=== PATIENT | male | born 1950 | race Caucasian/White ===

== ENCOUNTER 2016-10-02 15:21 | Inpatient (IN) | payer OTHER ==
[~2016-10-02 15:21] MED LIST: ADENOSINE 3 MG/ML 4 ML VIAL IVP ONE; SODIUM CHLORIDE 0.9% 100 ML BAG ONE
[2016-10-02] MEDS ORDERED: SODIUM CHLORIDE 0.9% 1,000 ML IV STA ×2 (15:45→17:01)
--- NOTE | 2016-10-02 15:47 | ED ---
General Adult HPI <RoqueMarco A - Last Filed: 10/02/16 17:08> - General Source: patient, RN notes reviewed Mode of arrival: wheelchair Limitations: no limitations <Alberto Hernandez - Last Filed: 10/02/16 17:22> - General Chief complaint: Chest Pain Stated complaint: Chest Pain Time Seen by Provider: 10/02/16 15:39 - History of Present Illness Initial comments: Patient 66-year-old male who presents emergency room today with a chief complaint of chest pain. He does admit that it started approximately 3.5 hours ago. He states that he woke up around noon feeling some numbness sensation to the back of his arms bilaterally. He states he then began having some pressure- like feeling over his chest. He does admit to some back pain between shoulders as well. Patient states never had some symptoms in the past. Patient does admit to mild cough congestion last few days. Does admit to some sputum production. Patient denies any other complaints. Patient denies any recent fever, chills, shortness of breath, abdominal pain, nausea or vomiting, numbness or tingling, dysuria or hematuria, constipation or diarrhea, headaches or visual changes, or any other complaints. (Alberto Hernandez) - Related Data Home Medications Medication Instructions Recorded Confirmed Atenolol/Chlorthalidone 1 tab PO DAILY@199904/22/14 06/03/14 [Atenolol-Chlorthalidone 50-25] Doxazosin Mesylate 2 mg PO HS 04/22/14 06/03/14 HYDROcodone/APAP 5-325MG [[place] 1 tab PO BID PRN 04/22/14 06/03/14 5-325] LORazepam [Ativan] 2 mg PO TID PRN 04/22/14 06/03/14 Butalb/Asprin/Caff 50-325-40Mg 1 cap PO Q6H PRN 10/02/16 10/02/16 [Fiorinal 50-325-40 MG] Butalb/Asprin/Caff 50-325-40Mg 2 cap PO Q6H PRN 10/02/16 10/02/16 [Fiorinal 50-325-40 MG] Allergies Allergy/AdvReac Type Severity Reaction Status Date / Time Sulfa (Sulfonamide AdvReac Seizure Verified 10/02/16 17:17 Antibiotics) Review of Systems ROS Other: All systems not noted in ROS Statement are negative. <Marco A Nevarez - Last Filed: 10/02/16 17:08> ROS Other: All systems not noted in ROS Statement are negative. <Alberto Hernandez - Last Filed: 10/02/16 17:22> ROS Statement: Those systems with pertinent positive or pertinent negative responses have been documented in the HPI. Past Medical History Past Medical History: Chest Pain / Angina, COPD, Hypertension, Prostate Disorder , Seizure Disorder Additional Past Medical History / Comment(s): arrythmia, seizures as child, migraines,hernia, "skin boils"-has one that is oozing on right inner thigh- using antibiotic cream, cysts on both kidneys, past hx. colon polyps History of Any Multi-Drug Resistant Organisms: None Reported Past Surgical History: Cholecystectomy, Tonsillectomy Past Anesthesia/Blood Transfusion Reactions: No Reported Reaction Past Psychological History: Anxiety, Depression Smoking Status: Current every day smoker Past Alcohol Use History: None Reported Past Drug Use History: None Reported - Past Family History Father Family Medical History: Cancer Mother Family Medical History: Cancer <Alberto Hernandez - Last Filed: 10/02/16 17:22> General Exam <Marco A Nevarez - Last Filed: 10/02/16 17:08> Limitations: no limitations <Alberto Hernandez - Last Filed: 10/02/16 17:22> - General Exam Comments Initial Comments: General: The patient is awake and alert, in no distress, and does not appear acutely ill. Eye: Pupils are equal, round and reactive to light, extra-ocular movements are intact. No nystagmus. There is normal conjunctiva bilaterally. No signs of icterus. Ears, nose, mouth and throat: There are moist mucous membranes and no oral lesions. Neck: The neck is supple, there is no tenderness or JVD. Cardiovascular: There is a regular rate and rhythm. No murmur, rub or gallop is appreciated. Respiratory: Lungs are clear to auscultation, respirations are non-labored, breath sounds are equal. No wheezes, stridor, rales, or rhonchi. Gastrointestinal: Soft, non-distended, non-tender abdomen without masses or organomegaly noted. There is no rebound or guarding present. No CVA tenderness. Bowel sounds are unremarkable. Musculoskeletal: Normal ROM, no tenderness. Strength 5/5. Sensation intact. Pulses equal bilaterally 2+. Neurological: A&O x 3. CN II-XII intact, There are no obvious motor or sensory deficits. Coordination appears grossly intact. Speech is normal. Skin: Skin is warm and dry and no rashes or lesions are noted. Psychiatric: Cooperative, appropriate mood & affect, normal judgment. (Alberto Hernandez) Medical Decision Making - Lab Data Result diagrams: 10/02/16 15:45 10/02/16 15:45 <Marco A Nevarez - Last Filed: 10/02/16 17:08> - Lab Data Result diagrams: 10/02/16 15:45 10/02/16 15:45 <Alberto Hernandez - Last Filed: 10/02/16 17:22> - Medical Decision Making Medical decision-making. The patient reports that he didn't get a dental 7 AM and awakened after noon today symmetric and up he had discomfort to his chest describes as a pressure. Some tingling discomfort to the back of his left arm his significant other said that he looked diaphoretic. This lasted for several hours. He came to the emergency room. EKG did not show any acute ST elevation. The discomfort subsided on its own. Past history significant for high blood pressure. The patient is trying to quit smoking. Because of his symptoms going through to the back/ scapular regions, he did have CAT scan with IV contrast which ruled out PE and aortic dissection. Labs show CK of 73 MB fraction 0.8 troponin 0.38. The patient is chest pain-free at this time. He is receiving at this time after a negative CT of his aorta aspirin and heparin patient be admitted I discussed the case with Dr. Stewart on-call for Dr. Love. Patient will be admitted to his service with cardiology consultation. Dr. Nevarez (Marco A Nevarez) Patient's CT of the chest negative for any evidence of PE. Negative for any evidence of dissection or aneurysm. Patient's labs reviewed. Does show elevated creatinine 1.67. Patient given a liter bolus here in the emergency room. Patient troponin mildly elevated 0.038. Patient started on aspirin, extra paste, heparin here in the emergency room and will be admitted. (Alberto Hernandez) - Lab Data Lab Results 0510/02/16 10/02/16 Range/Units 15:45 15:45 15:45 WBC 10.4 (3.8-10.6) k/uL RBC 5.50 (4.30-5.90) m/uL Hgb 16.1 (13.0-17.5) gm/dL Hct 47.7 (39.0-53.0) % MCV 86.7 (80.0-100.0) fL MCH 29.3 (25.0-35.0) pg MCHC 33.8 (31.0-37.0) g/dL RDW 15.7 H (11.5-15.5) % Plt Count 222 (150-450) k/uL Neutrophils % 72 % Lymphocytes % 21 % Monocytes % 3 % Eosinophils % 2 % Basophils % 1 % Neutrophils # 7.4 (1.3-7.7) k/uL Lymphocytes # 2.2 (1.0-4.8) k/uL Monocytes # 0.3 (0-1.0) k/uL Eosinophils # 0.2 (0-0.7) k/uL Basophils # 0.1 (0-0.2) k/uL Poikilocytosis Slight PT (9.0-12.0) sec INR (<1.1) APTT (22.0-30.0) sec D-Dimer (<0.60) mg/L FEU Sodium 139 (137-145) mmol/L Potassium 3.8 (3.5-5.1) mmol/L Chloride 102 (98-107) mmol/L Carbon Dioxide 26 (22-30) mmol/L Anion Gap 11 mmol/L BUN 19 (9-20) mg/dL Creatinine 1.67 H (0.66-1.25) mg/dL Est GFR (MDRD) Af Amer 50 (>60 ml/min/1.73 sqM) Est GFR (MDRD) Non-Af 42 (>60 ml/min/1.73 sqM) Glucose 210 H (74-99) mg/dL Calcium 9.5 (8.4-10.2) mg/dL Magnesium 1.9 (1.6-2.3) mg/dL Total Bilirubin 1.2 (0.2-1.3) mg/dL AST 21 (17-59) U/L ALT 23 (21-72) U/L Alkaline Phosphatase 110 (38-126) U/L Total Creatine Kinase 73 (55-170) U/L CK-MB (CK-2) 0.6 (0.0-2.4) ng/mL CK-MB (CK-2) Rel Index 0.8 Troponin I 0.038 H* (0.000-0.034) ng/mL Total Protein 8.2 (6.3-8.2) g/dL Albumin 4.2 (3.5-5.0) g/dL 10/02/16 Range/Units 15:45 WBC (3.8-10.6) k/uL RBC (4.30-5.90) m/uL Hgb (13.0-17.5) gm/dL Hct (39.0-53.0) % MCV (80.0-100.0) fL MCH (25.0-35.0) pg MCHC (31.0-37.0) g/dL RDW (11.5-15.5) % Plt Count (150-450) k/uL Neutrophils % % Lymphocytes % % Monocytes % % Eosinophils % % Basophils % % Neutrophils # (1.3-7.7) k/uL Lymphocytes # (1.0-4.8) k/uL Monocytes # (0-1.0) k/uL Eosinophils # (0-0.7) k/uL Basophils # (0-0.2) k/uL Poikilocytosis PT 10.7 (9.0-12.0) sec INR 1.1 (<1.1) APTT 30.0 (22.0-30.0) sec D-Dimer 0.48 (<0.60) mg/L FEU Sodium (137-145) mmol/L Potassium (3.5-5.1) mmol/L Chloride (98-107) mmol/L Carbon Dioxide (22-30) mmol/L Anion Gap mmol/L BUN (9-20) mg/dL Creatinine (0.66-1.25) mg/dL Est GFR (MDRD) Af Amer (>60 ml/min/1.73 sqM) Est GFR (MDRD) Non-Af (>60 ml/min/1.73 sqM) Glucose (74-99) mg/dL Calcium (8.4-10.2) mg/dL Magnesium (1.6-2.3) mg/dL Total Bilirubin (0.2-1.3) mg/dL AST (17-59) U/L ALT (21-72) U/L Alkaline Phosphatase (38-126) U/L Total Creatine Kinase (55-170) U/L CK-MB (CK-2) (0.0-2.4) ng/mL CK-MB (CK-2) Rel Index Troponin I (0.000-0.034) ng/mL Total Protein (6.3-8.2) g/dL Albumin (3.5-5.0) g/dL Disposition <Marco A Nevarez - Last Filed: 10/02/16 17:08> Time of Disposition: 17:12 <Alberto Hernandez - Last Filed: 10/02/16 17:22> Clinical Impression: Unstable angina Disposition: ADMITTED IP TO THIS HOSP Condition: Stable Referrals: Trenton Mccain MD [Primary Care Provider] - 1-2 days
[2016-10-02] MEDS ORDERED: RX INFO: IV CONTRAST WAS GIVEN 1 EACH MISC MISCELLANE PRN (15:51)
[2016-10-02 16:05] LABS: Basophils # (A) 0.1 k/uL (0-0.2); Basophils % (A) 1 %; CH 30.3; CHCM 35.1; Eosinophils # (A) 0.2 k/uL (0-0.7); Eosinophils % (A) 2 %; HCT 47.7 % (39.0-53.0); HDW 3.48; HGB 16.1 gm/dL (13.0-17.5); Luc % (Auto) 1; Lymphocytes # (A) 2.2 k/uL (1.0-4.8); Lymphocytes % (A) 21 %; MCH 29.3 pg (25.0-35.0); MCHC 33.8 g/dL (31.0-37.0); MCV 86.7 fL (80.0-100.0); Mean Platelet Volume 6.3; Monocytes # (A) 0.3 k/uL (0-1.0); Monocytes % (A) 3 %; Neutrophils # (A) 7.4 k/uL (1.3-7.7); Neutrophils % (A) 72 %; Poikilocytosis Slight; RDW 15.7 % (11.5-15.5); WBC 10.4 k/uL (3.8-10.6)
--- NOTE | 2016-10-02 16:10 | XR ---
EXAMINATION TYPE: XR chest 2V DATE OF EXAM: 10/02/2016 4:03 PM COMPARISON: NONE HISTORY: Short of breath and cough TECHNIQUE: Frontal and lateral views of the chest are obtained. FINDINGS: Heart and mediastinum are normal. Lungs are clear. Diaphragm is normal. There are chest le ads. Bony thorax appears intact. IMPRESSION: Normal chest
[2016-10-02 16:13] LABS: Calcium 9.5 mg/dL (8.4-10.2); Magnesium 1.9 mg/dL (1.6-2.3); Potassium 3.8 mmol/L (3.5-5.1); Total Bilirubin 1.2 mg/dL (0.2-1.3); Total Protein 8.2 g/dL (6.3-8.2)
[2016-10-02 16:24] LABS: INR 1.1 (<1.1); Prothrombin Time 10.7 sec (9.0-12.0)
[2016-10-02 16:42] LABS: Creatine Kinase MB 0.6 ng/mL (0.0-2.4)
--- NOTE | 2016-10-02 16:43 | CT ---
EXAMINATION TYPE: CT angio chest DATE OF EXAM: 10/02/2016 4:38 PM COMPARISON: NONE HISTORY: Chest pressure. CT DLP: 412.00 mGycm Automated exposure control for dose reduction was used. CONTRAST: CTA scan of the thorax is performed with IV Contrast, patient injected with 77 mL of Omnipaque 350, p ulmonary embolism protocol. There are 3-D post processed images.. FINDINGS: There is some mild linear interstitial density at the left lung base consistent with scarring or subs egmental atelectasis. There is no pleural effusion. Heart size is normal. There is no pericardial effusion. There is normal contrast opacification of the pulmonary arteries. I see no filling defect. There is n o sign of aortic aneurysm or dissection. There is no mediastinal adenopathy. There are no hilar toby s. The bony thorax is intact. IMPRESSION: NO EVIDENCE OF PULMONARY EMBOLISM. MINIMAL SCARRING OR SUBSEGMENTAL ATELECTASIS AT THE LEFT LUNG BASE .
[2016-10-02 16:44] LABS: Troponin I 0.038 ng/mL (0.000-0.034)
[2016-10-02] MEDS ORDERED: ASPIRIN 81 MG CHEW PO STA (16:54)
[2016-10-02] MEDS ORDERED: NITROGLYCERIN OINT 1 INCH/GM PACKET TOPICAL STA (16:54)
[2016-10-02] MEDS ORDERED: HEPARIN SODIUM,PORCINE 5,000 UNIT/ML 1 ML VIAL IV ONE (16:55)
[2016-10-02] MEDS ORDERED: HEPARIN SODIUM,PORCINE/D5W PMX 25,000 UNIT in DEXTROSE/WATER 1 500ML.BAG IV SCH (17:00)
[2016-10-02] MEDS ORDERED: SODIUM CHLORIDE 0.9% 500 ML IV STA (17:11)
[2016-10-02] MEDS ORDERED: SODIUM CHLORIDE 0.9% 1,000 ML IV ONE (17:12)
[2016-10-02] MEDS ORDERED: HYDROcodone/APAP 5-325MG 1 EACH TAB PO PRN (18:43)
[2016-10-02] MEDS ORDERED: CAFF PO PRN (18:43)
[2016-10-02] MEDS ORDERED: NON-FORMULARY DRUG (Clindamycin Phosphate [Cleocin T] 1 APPLIC) TOPICAL PRN (18:43)
[2016-10-02] MEDS ORDERED: NON-FORMULARY DRUG (Butalb/Asprin/Caff 50-325-40mg 1 CAP) PO PRN (18:43)
[2016-10-02] MEDS ORDERED: BUTALB PO PRN (18:43)
[2016-10-02] MEDS ORDERED: ASPRIN PO PRN (18:43)
[2016-10-02] MEDS ORDERED: ALBUTEROL NEBULIZED 2.5 MG/3 ML INHALATION PRN (18:43)
[2016-10-02] MEDS: SYMBICORT 160-4.5 MCG INHALER INHALATION SCH (20:15)
[2016-10-02] MEDS: LORazepam 1 MG TAB PO PRN (20:33)
[2016-10-02] MEDS: CHLORTHALIDONE 25 MG TAB PO SCH (20:35)
[2016-10-02] MEDS: ATENOLOL 50 MG TAB PO SCH (20:35)
[2016-10-02] MEDS: DOXAZOSIN 2 MG TAB PO SCH (20:35)
[2016-10-02 21:03] LABS: Troponin I 0.768 ng/mL (0.000-0.034)
[2016-10-02] MEDS: NITROGLYCERIN OINT 1 INCH/GM PACKET TOPICAL SCH (23:11)
[2016-10-03 04:50] LABS: Creatine Kinase MB 18.2 ng/mL (0.0-2.4)
[2016-10-03 04:51] LABS: Troponin I 4.65 ng/mL (0.000-0.034)
[2016-10-03 06:17] LABS: Cholesterol 159 mg/dL (<200); HDL Cholesterol 29 mg/dL (40-60); Triglycerides 213 mg/dL (<150)
[2016-10-03] MEDS: NITROGLYCERIN OINT 1 INCH/GM PACKET TOPICAL SCH ×2 (06:33→14:59)
[2016-10-03] MEDS: LORazepam 1 MG TAB PO PRN (06:47)
[2016-10-03] MEDS ORDERED: ALPRAZolam 0.5 MG TAB PO PRN (08:15)
[2016-10-03] MEDS ORDERED: ASPIRIN 325 MG TAB PO STA (08:15)
[2016-10-03] MEDS ORDERED: SODIUM CHLORIDE 0.9% 1,000 ML in EMPTY BAG 1 BAG IV ONE (08:15)
[2016-10-03] MEDS ORDERED: ATORVASTATIN 80 MG TAB PO STA (08:15)
[2016-10-03] MEDS ORDERED: NITROGLYCERIN SL TABS 0.4 MG TAB SUBLINGUAL PRN (08:15)
[2016-10-03] MEDS ORDERED: ALPRAZolam 0.25 MG TAB PO PRN (08:15)
[2016-10-03] MEDS ORDERED: SODIUM CHLORIDE 0.9% 250 ML IV ONE (08:35)
[2016-10-03] MEDS ORDERED: BUTALB/APAP/CAFF 50-325-40MG TAB PO PRN (08:41)
[2016-10-03] MEDS: SODIUM CHLORIDE 0.9% 1,000 ML IV SCH ×3 (09:00→23:37)
[2016-10-03] MEDS ORDERED: ASPIRIN 325 MG TAB PO SCH (09:00)
--- NOTE | 2016-10-03 09:02 | CONS ---
DATE OF CONSULTATION: CHIEF COMPLAINT: Chest pain. Mr. Bellamy is a 66-year-old gentleman with history of COPD, chronic back pain and hypertension who presented to the hospital complaining of chest pain. He describes it as a precordial chest pressure, moderate intensity, associated with diaphoresis with bilateral arm radiation, came on at rest and gradually resolved on its own. He came to hospital. This happened around 12:00 yesterday, came to hospital around 2:30. He was treated with intravenous heparin, beta blockers and nitrates and his symptoms have resolved. EKG shows normal sinus rhythm with right bundle branch block. He has had 3 sets of cardiac enzymes that have come back elevated at 0.038, 0.7 and 4.6 suggestive of non-ST segment elevation myocardial infarction. His lipid profile shows that the LDL cholesterol is 87, HDL is 29. History is significant for smoking. There is no history of ETOH abuse, or drug abuse. Given the patient's symptomatology and the elevated enzymes I advised him to undergo cardiac catheterization to evaluate his coronary anatomy. He had been explained of risks, benefits, and alternatives, in particular, the patient has elevated creatinine at 1.67. He understands the risk of contrast-induced nephropathy including renal failure and the need for dialysis. We will schedule his cardiac catheterization later in the day. Past medical history is significant for hypertension, COPD, back pain. Medications include: 1. Ativan. 2. Grayson. 3. Vitamin D2. 4. Cleocin. 5. Symbicort. 6. Tenoretic. ALLERGIES: THE PATIENT IS ALLERGIC TO SULFA. Family history is negative for premature coronary artery disease. SOCIAL HISTORY: Significant for smoking. REVIEW OF SYSTEMS: HEENT: Unremarkable. CARDIAC: As described above. RESPIRATORY: Negative. GI: Negative. GENITOURINARY: Negative. MUSCULOSKELETAL: Significant for back pain. PSYCHOSOCIAL: Negative. ENDOCRINE: Negative. DERM: Negative. CONSTITUTIONAL: Negative. Oncological: Negative. The rest of the system review is not relevant. On exam, comfortable at rest. Vital signs are stable. There is no jugular venous distention. Carotid upstroke is normal. There is no bruit. Chest exam reveals good air entry bilaterally. Heart exam reveals first and second heart sounds. No gallop. No murmur, no rub. ABDOMEN: Soft, nontender. Exam of the extremities did not reveal edema. Peripheral pulses are felt. 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 Labs show a hemoglobin of 16. Platelet count is 222. Creatinine is elevated at 1.6. Three sets of troponins are elevated. LDL cholesterol is 87. ASSESSMENT: 1. Non-ST segment elevation myocardial infarction. 2. Hypertension. 3. Chronic renal insufficiency. PLAN: Patient will undergo cardiac catheterization today and further course of action based on the cath findings.
[2016-10-03] MEDS: SYMBICORT 160-4.5 MCG INHALER INHALATION SCH ×2 (09:21→19:32)
[2016-10-03 09:29] LABS: Calcium 8.5 mg/dL (8.4-10.2); Potassium 3.8 mmol/L (3.5-5.1)
[2016-10-03] MEDS ORDERED: IV FLUID CONTINUATION 1,000 ML IV ONE (10:27)
[2016-10-03] MEDS ORDERED: MIDAZOLAM 2 MG/2 ML VIAL ONE (10:35)
[2016-10-03] MEDS ORDERED: LIDOCAINE 2% INJ 20 MG/ML (20 ML MDV) ONE (10:35)
[2016-10-03] MEDS: MIDAZOLAM 2 MG/2 ML VIAL IV ONE ×2 (10:37→10:48)
[2016-10-03] MEDS ORDERED: LIDOCAINE 2% INJ 20 MG/ML SQ ONE (10:40)
--- NOTE | 2016-10-03 11:12 | ECHOF ---
Referral Reason:chest pain MEASUREMENTS -------- HEIGHT: 175.3 cm WEIGHT: 85.7 kg BP: 131/75 IVSd: 1.4 cm (0.6 - 1.1) LVIDd: 3.9 cm (3.9 - 5.3) LVPWd: 1.4 cm (0.6 - 1.1) IVSs: 1.8 cm LVIDs: 2.7 cm LVPWs: 1.8 cm LAESV Index (A-L): 24.07 ml/m Ao Diam: 3.6 cm (2.0 - 3.7) AV Cusp: 2.0 cm (1.5 - 2.6) LA Diam: 2.8 cm (2.7 - 3.8) MV E Rodriguez: 0.73 m/s MV DecT: 215 ms MV A Rodriguez: 0.61 m/s MV E/A Ratio: 1.19 RAP: 5.00 mmHg RVSP: 8.59 mmHg FINDINGS -------- Sinus rhythm. This was a technically adequate study. There is moderate concentric left ventricular hypertrophy. Overall left ventricular systolic function is normal with, an EF between 55 - 60 %. The right ventricle is normal in size and function. Normal LA size by volume 22+/-6 ml/m2. The right atrium is normal in size. The aortic valve is trileaflet, and appears structurally normal. No aortic stenosis or regurgitation. The mitral valve leaflets are mildly thickened. Mild mitral annular calcification present. There is trace to mild mitral regurgitation. Trace tricuspid regurgitation present. There is no evidence of pulmonary hypertension. The right ventricular systolic pressure, as measured by Doppler, is 8.59mmHg. The pulmonic valve was not well visualized. The aortic root size is normal. Normal inferior vena cava with normal inspiratory collapse consistent with estimated right atrial pressure of 5 mmHg. The pericardium is normal. There is no pericardial effusion. CONCLUSIONS -------- 1. Sinus rhythm. 2. There is no evidence of pulmonary hypertension. 3. The right ventricular systolic pressure, as measured by Doppler, is 8.59mmHg. 4. The pulmonic valve was not well visualized. 5. The aortic root size is normal. 6. There is no pericardial effusion. 7. There is moderate concentric left ventricular hypertrophy. 8. Overall left ventricular systolic function is normal with, an EF between 55 - 60 %. 9. Normal LA size by volume 22+/-6 ml/m2. 10. The aortic valve is trileaflet, and appears structurally normal. No aortic stenosis or regurgitation. 11. The mitral valve leaflets are mildly thickened. 12. Mild mitral annular calcification present. 13. There is trace to mild mitral regurgitation. 14. Trace tricuspid regurgitation present. SINK CUTTER: Rubens Pearce RDCS
--- NOTE | 2016-10-03 11:20 | CC ---
DATE OF SERVICE: INDICATION: Non-ST segment elevation myocardial infarction. A 66-year-old gentleman who presented to the hospital with chest pain and ruled in for myocardial infarction. Initially he underwent a CT scan of the chest that was negative for pulmonary embolism. The patient has renal insufficiency and understands the risk of contrast-induced nephropathy. PROCEDURE NOTE: After obtaining informed consent, left heart catheterization and coronary angiogram are performed via the right femoral artery using standard Danyel catheters. Patient tolerated the procedure well without any obvious immediate complications. FINDINGS: 1. HEMODYNAMICS: Left ventricular end-diastolic pressure is 14 to 16 mm. There is no significant gradient across the aortic valve. 2. LEFT VENTRICULOGRAM: Left ventriculogram was not performed. 3. ANGIOGRAPHIC DATA: LEFT MAIN CORONARY ARTERY: Left main coronary artery is a normal size vessel and is free of stenosis. Divides into left anterior descending coronary artery and circumflex coronary artery. LAD shows a 60% to 70% stenosis with haziness just proximal to the origin of the diagonal branch. Circumflex coronary artery and a high OM branch are free of significant stenosis. Right coronary artery is a large dominant vessel that shows mild nonobstructive disease in the proximal to mid part. CONCLUSION: A 60% to 70% stenosis involving proximal left anterior descending artery just proximal to the origin of the diagonal branch. PLAN: The angiographic data was reviewed by Dr. Mary Hernandez, the on-call pantry worker. He will undergo an FFR and if the lesion is significant will undergo angioplasty with stent placement.
[2016-10-03] MEDS: NITROGLYCERIN 1000MCG/10ML SYRINGE INTRACORON ONE ×2 (12:15→13:12)
[2016-10-03] MEDS ORDERED: BIVALIRUDIN BOLUS 250 MG/50 ML IV ONE (12:18)
[2016-10-03] MEDS ORDERED: BIVALIRUDIN 250 MG in SODIUM CHLORIDE 0.9% 50 ML IV ONE (12:19)
[2016-10-03] MEDS ORDERED: HYDROmorphone 2 MG/ML 1 ML SYRINGE ONE (12:40)
[2016-10-03] MEDS ORDERED: HYDROmorphone 2 MG/ML 1 ML SYRINGE IVP ONE (12:46)
[2016-10-03] MEDS ORDERED: PRASUGREL 10 MG TAB ONE (13:16)
[2016-10-03] MEDS ORDERED: PRASUGREL 10 MG TAB PO ONE (13:18)
[2016-10-03] MEDS ORDERED: SODIUM CHLORIDE 0.9% 100 ML IV ONE (13:20)
[2016-10-03] MEDS ORDERED: ATROPINE SULFATE 0.1 MG/ML 10ML SYRINGE IV PRN (13:22)
[2016-10-03] MEDS ORDERED: RX INFO: IV CONTRAST WAS GIVEN 1 EACH MISC MISCELLANE PRN (13:22)
[2016-10-03] MEDS ORDERED: MAG HYDROX/AL HYDROX/SIMETH 30 ML CUP PO PRN (13:22)
[2016-10-03] MEDS ORDERED: ZOLPIDEM 5 MG TAB PO PRN (13:22)
[2016-10-03] MEDS ORDERED: IODIXANOL 320 MG/ML 100 ML IV ONE (13:23)
--- NOTE | 2016-10-03 16:16 | HP ---
DATE OF ADMISSION: DATE OF SERVICE: 10/02/2016 Mr. Kavon Bellamy is seen, evaluated, and examined for his chest pain. Patient is seen, evaluated, examined while covering for Dr. Mccain. Patient presented into the emergency department with substernal chest pain going to the back, which started about 3 to 4 hours prior to coming to the hospital. Patient given the presentation underwent a spiral CT scan of the chest, which was negative for PE as well as dissection. Due to persistent pain, cardiovascular services has been consulted. The patient denies any similar episodes in the past. Does have some feeling of pressure started since director of early childhood. He denies any cough or sputum production. Denies any night sweats, fever or chills. Past medical history is significant for COPD, hypertension, prostate enlargement, seizure disorder, coronary artery disease, history of seizures, arrhythmia, history of skin boils in the past. Past surgical history is significant for cholecystectomy, tonsillectomy. FAMILY HISTORY AND SOCIAL HISTORY: Smokes on a daily basis about half to 1 pack a day. Denies any substance use or alcohol consumption. ALLERGIES: SULFA. Medications include aspirin, caffeine, barbiturate, Ativan, hydrocodone/APAP and atenolol. Current medications initiated in the hospital include as above, also unit dose, albuterol 4 times a day as needed, aspirin 325 mg daily, Tenormin 50 mg daily, Symbicort 160/4.5, 2 times a day, also on Cardura, Ativan, K-mag-phos replacement protocol, IV fluids 100 mL/h. REVIEW OF SYSTEMS: VISION THERAPIST: Denies any seizure-like activity, loss of consciousness, hemiparesis. CARDIORESPIRATORY: Otherwise unremarkable and noncontributory. GI/: Unremarkable and noncontributory. MUSCULOSKELETAL/DERMATOLOGICAL: Unremarkable and noncontributory. On examination, most recent vitals include blood pressure is 130/75, respiratory rate 18, pulse 70, temperature 98, saturation of 95% to 97%. HEENT: Atraumatic, normocephalic. Pharynx clear. Narrow pharyngeal opening is present. NECK: Supple without any lymphadenopathy, jugular venous distention or carotid bruit. LUNGS: Bilateral good air entry is present without significant rales, rhonchi, or rub. HEART: Regular rate and rhythm. S1 and S2 audible. ABDOMEN: Soft. No rebound or rigidity. EXTREMITIES: +1 peripheral pulses. NEUROLOGICAL EXAMINATION: Otherwise, awake and alert. The CT scan of the chest shows some scarring at the left base seen, otherwise unremarkable. The chest x-ray is unremarkable as well. The echocardiogram performed 10/03/2016 reviewed and revealed ejection fraction 50 to 60%, normal LA. Trace TR has been seen. Other laboratory data reviewed. White cell count 10,400, hemoglobin 16 and hematocrit 47, platelet count 222,000. Sodium 139, potassium 3.8. BUN and creatinine 19 and 1.67. Glucose 210. Troponin is 0.38 went up to 0.768 and 4.6. Total cholesterol 159. The EKG performed in the emergency department reviewed revealed right bundle branch block pattern. IMPRESSION: 1. Chest pain with radiation to the shoulder with positive troponin consistent with non- ST segment elevated acute myocardial infarction. Cardiovascular service is following. Patient has been on aspirin, beta heather, anticoagulation with heparin. The patient is being planned for cath and angiogram. 2. Hypertension, hypertensive cardiovascular, dyslipidemia. 3. Chronic obstructive pulmonary disease, appears to be mild to moderate. 4. Left lower lobe scarring, nonspecific. Will monitor and observe. Continue other supportive care. Continue other medications. Follow clinical course closely. The patient has been counseled and educated about smoking cessation. This patient is seen, evaluated, and examined while covering for Dr. Mccain.
--- NOTE | 2016-10-03 17:02 | HP ---
DATE OF ADMISSION: CHIEF COMPLAINT: Chest pain. HISTORY OF PRESENT ILLNESS: This gentleman was admitted in my absence. He presented with chest pain, nausea, vomiting, shortness of breath and diaphoresis with elevated troponins. He is scheduled to go to the [facility]. ADMITTING DIAGNOSES: 1. Acute myocardial infarction. 2. Chronic obstructive pulmonary disease. PLAN: Consult with cardiology and cardiac cath.
--- NOTE | 2016-10-03 17:06 | PN ---
DATE OF SERVICE: 10/03/2016 CHIEF COMPLAINT: Acute myocardial infarction. HISTORY OF PRESENT ILLNESS: This gentleman is fairly stable and comfortable. He has had no palpitations, shortness of breath, fever, chills, etc. He is going today for cardiac cath. PHYSICAL EXAMINATION: CHEST: Clear. CARDIAC: Demonstrated sinus rhythm. ABDOMEN: Soft, nontender. IMPRESSION: 1. Acute myocardial infarction. 2. Chronic obstructive pulmonary disease. PLAN: Cardiac cath today.
[2016-10-03] MEDS: ATENOLOL 50 MG TAB PO SCH (20:40)
[2016-10-03 22:56] VITALS: RESP 18
[2016-10-03] MEDS: DOXAZOSIN 2 MG TAB PO SCH (23:35)
[2016-10-03] MEDS: CHLORTHALIDONE 25 MG TAB PO SCH (23:35)
[2016-10-04] MEDS: SODIUM CHLORIDE 0.9% 1,000 ML IV SCH ×3 (06:35→15:33)
--- NOTE | 2016-10-04 06:47 | PTCA ---
DATE OF SERVICE: 10/03/2016 PROCEDURE: PTCA and stenting of a complex bifurcation lesion involving the proximal LAD and major diagonal branch. PERFORMED BY: Dr. Mary Hernandez. CLINICAL INFORMATION: Mr. Kavon Bellamy is a 66-year-old gentleman with a known history of hypertension, hypercholesterolemia, benign prostatic hypertrophy, and smoking. He came into the hospital with episode of chest discomfort suggestive of angina, had initially a CT angiogram, which was negative. Subsequently the troponins suggested non-ST elevation MO. He had a right bundle branch block without EKG changes. In view of his presentation, elevated troponin, he underwent cardiac cath performed by Dr. Bee. Cardiac cath revealed that he had a dominant right coronary artery without significant disease. He also had a large circumflex system that had minor irregularities. The left anterior descending coronary artery had a lesion involving the proximal portion before and after a major diagonal branch and this was a 70% eccentric lesion with haziness and the diagonal branch itself was large in caliber and the ostium did not have any critical stenosis. There was some sluggish flow noted in the distal LAD. I reviewed the angiograms and recommended intervention and noted that this was a complex lesion and a bifurcation lesion with a fairly large-sized diagonal branch. PROCEDURE NOTE: The existing 6 Romansh introducer in the right femoral artery was used to perform the procedure. I used a JL4 guide catheter of 6 Romansh caliber. Initially I considered doing a FFR but noted that on my angiography the lesion was significant complex involving the LAD before and after the diagonal branch. I therefore went ahead and used a BMW wire and this wire was advanced and positioned in the major diagonal branch. A Whisper wire was advanced and positioned in the LAD towards the apex. I used a 3.0 caliber 15 mm long NC Trek balloon and dilated the mid LAD lesion. I then used a 2.75 caliber 15 mm long Xience stent and deployed this across the diagonal and the stent was deployed at 12 atmospheres. I then used a 3.25 caliber, 8 mm long NC Trek balloon and dilated the proximal half of the stented segment within the stent and the distal aspect of the balloon marker was placed at the bifurcation of the LAD diagonal. The proximal vessel optimization was therefore performed. I then took the diagonal wire out and used a new Whisper wire and advanced and positioned this in the first diagonal. I used a 2.75 caliber, 8 mm long NC Trek balloon and positioned this in the diagonal vessel. I tried to advance a 2.75, 15 mm long NC Trek balloon into the LAD, but because of a 6 Romansh guide catheter, I could not do this. After some deliberation, I went ahead and inflated the diagonal ( ) with the NC Trek balloon up to 2.75 caliber and 8 mm length. The distal aspect of the balloon was well into the diagonal branch. I then used a 3.0 NC Trek balloon and with this I dilated the distal aspect of the stent at and after the diagonal branch and also the proximal aspect of the stent. I gave up to 12 atmospheres. Excellent angiographic result was achieved. I could not perform a kissing balloon dilatation because the guide catheter for some reason did not allow me to advance both the stents. The eventual result was excellent with a very good angiographic appearance and flow and the diagonal vessel flow was very much preserved. Provisional stenting of the diagonal was therefore performed with a stent in the LAD. The patient received 60 mg of Effient. The sheath was taken out and Angio-Seal device used to secure hemostasis and he was sent to the room in a stable condition. Patient also received Angiomax bolus and infusion. Excellent angiographic result without complication was achieved and results were discussed with the patient and family. Conscious sedation was provided with a combination of Versed, Dilaudid and Benadryl. Conscious sedation was provided for a total duration of one hour and patient was monitored very closely and oxygen saturation was good.
--- NOTE | 2016-10-04 06:50 | LTR ---
October 03, 2016 NADER MCCAIN MD RE: Kavon Bellamy Dear Dr. Mccain: Thank you for the opportunity to participate in the care of Mr. Bellamy. This gentleman presented with a non-ST elevation CO and was evaluated by Dr. Bee. Cardiac cath revealed a complex LAD bifurcation lesion. LAD stenting was performed with a provisional stenting of diagonal. Excellent angiographic result without complication was achieved. Patient should be on dual antiplatelet therapy for one year without interruption and I expect he will be discharged in next 24 to 48 hours. Thank you for your referral and please call for questions. With kindest regards. Sincerely yours, AL GIFFORD MD
[2016-10-04 06:59] LABS: Calcium 8.2 mg/dL (8.4-10.2); Potassium 3.6 mmol/L (3.5-5.1)
[2016-10-04 07:00] LABS: Basophils # (A) 0.1 k/uL (0-0.2); Basophils % (A) 1 %; CHCM 34.3; Eosinophils # (A) 0.3 k/uL (0-0.7); Eosinophils % (A) 3 %; HCT 38.1 % (39.0-53.0); HDW 3.49; HGB 13.3 gm/dL (13.0-17.5); Luc # (Auto) 0.11; Luc % (Auto) 1; Lymphocytes # (A) 2.1 k/uL (1.0-4.8); Lymphocytes % (A) 24 %; MCH 30.6 pg (25.0-35.0); MCHC 34.9 g/dL (31.0-37.0); MCV 87.8 fL (80.0-100.0); Mean Platelet Volume 6.2; Monocytes # (A) 0.4 k/uL (0-1.0); Monocytes % (A) 5 %; Neutrophils # (A) 5.9 k/uL (1.3-7.7); Neutrophils % (A) 67 %; Poikilocytosis Slight; RBC 4.34 m/uL (4.30-5.90); RDW 15.5 % (11.5-15.5); WBC 8.8 k/uL (3.8-10.6); WBC (Perox) 8.69
[2016-10-04] MEDS: SYMBICORT 160-4.5 MCG INHALER INHALATION SCH ×2 (09:01→20:41)
[2016-10-04] MEDS: LISINOPRIL 5 MG TAB PO SCH (09:46)
[2016-10-04] MEDS: ASPIRIN 81 MG CHEW PO SCH (09:46)
[2016-10-04] MEDS: LORazepam 1 MG TAB PO PRN ×3 (09:53→22:26)
--- NOTE | 2016-10-04 11:25 | P.PN ---
Subjective Principal diagnosis: Acute coronary syndrome This is a 66-year-old gentleman with known history of COPD, chronic back pain, hypertension, hyperlipidemia, nicotine dependence, anxiety, who presented to the hospital with a non-Q-wave myocardial infarction. He was taken to the cardiac catheterization lab by Dr. Bee and subsequently underwent angioplasty with stent placement of a complex bifurcation lesion involving the proximal LAD and major diagonal branch. EKG was reviewed this morning which showed normal sinus rhythm with no acute changes, and echocardiogram with Doppler study revealed an ejection fraction of 55-60%. At the time of my examination, patient had just returned back to bed from being up to the bathroom, developed a hematoma. Pressure was held for approximately 20 minutes in the site soft and completely. There was no evidence of any bruit, but because of the hematoma and ultrasound of the right groin was ordered to rule out a pseudoaneurysm. Overall patient denies any chest pain or difficulty in breathing, he is quite anxious and wants to be discharged home today. Objective - Vital Signs Vital signs: Vital Signs Temp 97.3 F L 10/04/16 00:00 Pulse 78 10/04/16 08:51 Resp 18 10/04/16 04:00 BP 130/68 10/04/16 08:51 Pulse Ox 99 10/04/16 08:51 Intake & Output 10/03/16 10/04/16 10/04/16 18:59 06:59 18:59 Intake Total 580.15 1200 120 Output Total 560 1550 Balance 20.15 -350 120 Weight 85.9 kg Intake: IV 343.15 Intake, IV Titration 1200 Amount Sodium Chloride 0.9% 100 1200 ml As IV .[facility] Rx# :[id number] Oral 237 120 Output: Urine 560 1550 Other: Voiding Method Urinal Urinal # Voids 1 1 - Exam PHYSICAL EXAMINATION: HEENT: Head is atraumatic, normocephalic. Pupils equal, round. Neck is supple. There is no elevated jugular venous pressure. HEART EXAMINATION: Heart S1, S2 normal. No murmur or gallop heard. CHEST EXAMINATION: Lungs are clear to auscultation and precussion. No chest wall tenderness is noted on palpation or with deep breathing. ABDOMEN: Soft, obese, nontender. Bowel sounds are heard. No organomegaly noted. Right groin, positive hematoma, reduced after holding pressure for 20 minutes. Site soft, no bruit audible EXTREMITIES: 2+ peripheral pulses with no evidence of peripheral edema and no calf tenderness noted. NEUROLOGIC patient is awake, alert and oriented -3. . - Labs CBC & Chem 7: 10/04/16 06:19 10/04/16 06:15 Labs: Abnormal Lab Results - Last 24 Hours (Table) 10/04/16 10/04/16 Range/Units 06:15 06:19 Hct 38.1 L (39.0-53.0) % Chloride 109 H (98-107) mmol/L Creatinine 1.70 H (0.66-1.25) mg/dL Glucose 107 H (74-99) mg/dL Calcium 8.2 L (8.4-10.2) mg/dL Assessment and Plan (1) ACS (acute coronary syndrome) Status: Acute (2) Presence of stent in LAD coronary artery Status: Acute (3) HTN (hypertension) Status: Acute (4) Hyperlipemia Status: Acute (5) Nicotine dependence Status: Acute (6) COPD (chronic obstructive pulmonary disease) Status: Acute (7) Anxiety Status: Acute Plan: From cardiology's perspective, we will obtain an ultrasound of the right groin to rule out pseudoaneurysm. Further recommendations will be based on these findings and the patient's clinical course. DNP note has been reviewed, I agree with a documented findings and plan of care. Patient was seen and examined.
[2016-10-04] MEDS: PRASUGREL 10 MG TAB PO SCH (11:39)
--- NOTE | 2016-10-04 13:20 | P.PN ---
Subjective 66-year-old seen and evaluated. Patient states he had been up ambulating in the halls this morning. Patient denied any further episodes of chest pain or shortness of breath. Patient states is anxious to be discharged. Patient did undergo heart catheterization on the 03 of October with a stent placed to the proximal LAD and diagonal branch. Additionally patient did have an echocardiogram showed an EF of 55-60%. The patient did develop a hematoma this morning. An ultrasound the right groin has been ordered to rule out pseudoaneurysm. Objective - Vital Signs Vital signs: Vital Signs Temp 97.3 F L 10/04/16 00:00 Pulse 78 10/04/16 08:51 Resp 18 10/04/16 04:00 BP 130/68 10/04/16 08:51 Pulse Ox 99 10/04/16 08:51 Intake & Output 10/03/16 10/04/16 10/04/16 18:59 06:59 18:59 Intake Total 580.15 1200 360 Output Total 560 1550 Balance 20.15 -350 360 Weight 85.9 kg Intake: IV 343.15 Intake, IV Titration 1200 Amount Sodium Chloride 0.9% 100 1200 ml As IV .[facility] Rx# :[id number] Oral 237 360 Output: Urine 560 1550 Other: Voiding Method Urinal Urinal # Voids 1 1 - Exam Physical exam 66-year-old male resting in bed appears in no acute distress Lungs essentially clear adequate air movement Heart S1-S2 audible and regular Abdomen soft nontender reports no nausea vomiting Extremities right groin hematoma noted soft no bruit noted no pedal edema noted - Labs CBC & Chem 7: 10/04/16 06:19 10/04/16 06:15 Labs: Abnormal Lab Results - Last 24 Hours (Table) 10/04/16 10/04/16 Range/Units 06:15 06:19 Hct 38.1 L (39.0-53.0) % Chloride 109 H (98-107) mmol/L Creatinine 1.70 H (0.66-1.25) mg/dL Glucose 107 H (74-99) mg/dL Calcium 8.2 L (8.4-10.2) mg/dL Assessment and Plan Plan: Impression Present on admission chest pain acute coronary syndrome non-ST elevated [place] Chronic nicotine dependency greater than a 20 year history Anxiety disorder nonspecified COPD with no evidence of acute exacerbation Hyperlipidemia Hypertension Status post coronary stent to the LAD coronary artery Acute on chronic renal failure stage II Plan Follow up on the ultrasound of the groin to rule out pseudoaneurysm Continue recommendations by cardiology service Resume home meds as appropriate Smoking cessation information provided patient's been advised to stop smoking cigarettes DVT and GI prophylaxis further recommendations pending Defer to the timing of the discharge to cardiology service The above dictated assessment and findings were discussed with dr narayan . Impression and the plan of care have been dictated as directed. Whit Valenzuela nurse practitioner acting as a scribe for dr narayan
--- NOTE | 2016-10-04 13:49 | US ---
EXAMINATION TYPE: US lower ext pseudo artery RT DATE OF EXAM: 10/04/2016 COMPARISON: CLINICAL HISTORY: right groin U/S r/o pseudoaneurysm. Heart cath performed yesterday. R/O PSA EXAM PERFORMED: Grayscale and color Doppler duplex imaging performed of the groin, post cardiac winifred ter to assess for pseudoaneurysm. SIDE PERFORMED: Right groin Color and Waveform Doppler performed to assess for the presence of pseudoaneurysm; Is there ultrasound evidence of a pseudoaneurysm: no Is there evidence of AV shunting: no Is there a fluid collection present: Anterior nonvascular heterogenous lesion - 4.5 x 3.8 x 1.1 cm Suboptimal visualization due to edema. No pseudoaneurysm seen as visualized. IMPRESSION: Right groin fluid collection is felt to reflect focal moderate size hematoma.
[2016-10-04] MEDS: DOXAZOSIN 2 MG TAB PO SCH (20:26)
[2016-10-04] MEDS: CHLORTHALIDONE 25 MG TAB PO SCH (20:26)
[2016-10-04] MEDS ORDERED: ATORVASTATIN 80 MG TAB PO SCH (21:00)
[2016-10-05] MEDS: SODIUM CHLORIDE 0.9% 1,000 ML IV SCH ×2 (04:40→09:51)
[2016-10-05 06:22] LABS: Basophils # (A) 0.1 k/uL (0-0.2); Basophils % (A) 1 %; CH 29.9; CHCM 34.3; Eosinophils # (A) 0.3 k/uL (0-0.7); Eosinophils % (A) 3 %; HCT 38.7 % (39.0-53.0); HDW 3.54; HGB 12.6 gm/dL (13.0-17.5); Luc # (Auto) 0.13; Luc % (Auto) 2; Lymphocytes % (A) 23 %; MCH 28.6 pg (25.0-35.0); MCHC 32.7 g/dL (31.0-37.0); MCV 87.6 fL (80.0-100.0); Mean Platelet Volume 6.6; Monocytes # (A) 0.4 k/uL (0-1.0); Monocytes % (A) 4 %; Neutrophils # (A) 5.7 k/uL (1.3-7.7); Neutrophils % (A) 67 %; Poikilocytosis Slight; RBC 4.42 m/uL (4.30-5.90); RDW 15.7 % (11.5-15.5); WBC 8.5 k/uL (3.8-10.6); WBC (Perox) 8.95
[2016-10-05 06:38] LABS: Calcium 8.8 mg/dL (8.4-10.2); Potassium 3.5 mmol/L (3.5-5.1)
[2016-10-05] MEDS: SYMBICORT 160-4.5 MCG INHALER INHALATION SCH (07:41)
[2016-10-05] MEDS: LORazepam 1 MG TAB PO PRN (09:19)
[2016-10-05] MEDS: ASPIRIN 81 MG CHEW PO SCH (09:19)
[2016-10-05] MEDS: LISINOPRIL 5 MG TAB PO SCH (09:20)
[2016-10-05] MEDS: PRASUGREL 10 MG TAB PO SCH (09:20)
[2016-10-05] MEDS ORDERED: POTASSIUM CHLORIDE ER 20 MEQ TAB.ER PO STA (09:24)
[2016-10-05 09:43] VITALS: BP 116/66; PULSE 85; TEMP 96.9
--- NOTE | 2016-10-05 10:45 | P.PN ---
Subjective Principal diagnosis: Acute coronary syndrome This is a 66-year-old gentleman with known history of COPD, chronic back pain, hypertension, hyperlipidemia, nicotine dependence, anxiety, who presented to the hospital with a non-Q-wave myocardial infarction. He was taken to the cardiac catheterization lab by Dr. Bee and subsequently underwent angioplasty with stent placement of a complex bifurcation lesion involving the proximal LAD and major diagonal branch. EKG was reviewed this morning which showed normal sinus rhythm with no acute changes, and echocardiogram with Doppler study revealed an ejection fraction of 55-60%. Ultrasound of the groin was performed yesterday which revealed a hematoma with no evidence of pseudoaneurysm. Patient was seen and examined this morning, groin is soft, he denies any chest pain or difficulty in breathing. Objective - Vital Signs Vital signs: Vital Signs Temp 96.9 F L 10/05/16 08:00 Pulse 85 10/05/16 08:00 Resp 18 10/05/16 08:00 BP 116/66 10/05/16 08:00 Pulse Ox 93 L 10/05/16 08:00 Intake & Output 10/04/16 10/05/16 10/05/16 18:59 06:59 18:59 Intake Total 380 1170 Balance 380 1170 Weight 85.7 kg Intake: IV 20 810 0.9 normal saline flush 10 Invasive Line 1 10 Sodium Chloride 0.9% 1, 10 800 000 ml @ 100 mls/hr IV . Q10H [facility] Rx#:[id number] Oral 360 360 Other: Voiding Method Urinal - Exam PHYSICAL EXAMINATION: HEENT: Head is atraumatic, normocephalic. Pupils equal, round. Neck is supple. There is no elevated jugular venous pressure. HEART EXAMINATION: Heart S1, S2 normal. No murmur or gallop heard. CHEST EXAMINATION: Lungs are clear to auscultation and precussion. No chest wall tenderness is noted on palpation or with deep breathing. ABDOMEN: Soft, obese, nontender. Bowel sounds are heard. No organomegaly noted. Right groin, soft, no evidence of any hematoma. EXTREMITIES: 2+ peripheral pulses with no evidence of peripheral edema and no calf tenderness noted. NEUROLOGIC patient is awake, alert and oriented -3. . - Labs CBC & Chem 7: 10/05/16 06:02 10/05/16 06:02 Labs: Abnormal Lab Results - Last 24 Hours (Table) 10/05/16 10/05/16 Range/Units 06:02 06:02 Hgb 12.6 L (13.0-17.5) gm/dL Hct 38.7 L (39.0-53.0) % RDW 15.7 H (11.5-15.5) % Chloride 110 H (98-107) mmol/L Carbon Dioxide 21 L (22-30) mmol/L BUN 22 H (9-20) mg/dL Creatinine 1.73 H (0.66-1.25) mg/dL Glucose 131 H (74-99) mg/dL Assessment and Plan (1) ACS (acute coronary syndrome) Status: Acute (2) Presence of stent in LAD coronary artery Status: Acute (3) HTN (hypertension) Status: Acute (4) Hyperlipemia Status: Acute (5) Nicotine dependence Status: Acute (6) COPD (chronic obstructive pulmonary disease) Status: Acute (7) Anxiety Status: Acute Plan: From cardiology's perspective, patient may be able to be discharged home today. We will make him a follow-up appointment to see Dr. Parish in the office post discharge. Patient will be discharged home on aspirin 81 mg daily, Tenormin 50 mg daily, Lipitor 80 mg daily, Hygroton 25 mg daily, Lisinopril 5 mg daily, Effient 10 mg daily for one month, then patient was started on Plavix 75 mg daily. Sublingual nitroglycerin as needed for chest pain. Patient has been educated regarding his medications and prescriptions for all of the above medications have been provided. DNP note has been reviewed, I agree with a documented findings and plan of care. Patient was seen and examined.
--- NOTE | 2016-10-05 11:42 | P.DS ---
Providers Date of admission: 10/02/16 17:44 Expected date of discharge: 10/05/16 Attending physician: Trenton Mccain Consults: 10/02/16 17:12 Consult Physician Stat Consulting Provider: Robert Manzanares Consult Reason/Comments: Chest pain, elevated troponin Do you want consulting provider notified?: Yes 10/03/16 13:22 Consult Physician Routine Consulting Provider: Robert Manzanares Consult Reason/Comments: Post Interventional patient Do you want consulting provider notified?: Already Contacted Primary care physician: Trenton Mccain Hospital Course: 67-year-old male who presented on the day of admission to the the emergency room with a chief complaint of chest pain. Patient troponins were elevated patient ruled in for non-ST elevated myocardial infarction. Patient was taken to the [facility] where he underwent heart catheterization by Dr. Parish. Subsequently the patient underwent angioplasty stenting which was placed to a complex bifurcation lesion involving the proximal LAD and major diagonal branch. The EKG showed sinus rhythm there were no acute changes. Patient did have an echocardiogram done this admission it showed an ejection fraction of 55- 60% no valvular heart disease. Postprocedure patient did develop hematoma ultrasound of the groin was performed showed no evidence of a pseudoaneurysm. Patient denied chest pain and was anxious to be discharged home. Patient was felt to be appropriate to proceed with a discharge from cardiology and medical service. Impression discharge diagnosis Present on admission chest pain acute coronary syndrome non-ST elevated [place] Chronic nicotine dependency greater than a 20 year history Anxiety disorder nonspecified COPD with no evidence of acute exacerbation Hyperlipidemia Hypertension Status post coronary stent to the LAD coronary artery done on October 03 Acute on chronic renal failure stage II The above dictated assessment and findings were discussed with dr mccain. Impression and the plan of care have been dictated as directed. Whit Valenzuela nurse practitioner acting as a scribe for dr mccain Patient Condition at Discharge: Stable Plan - Discharge Summary New Discharge Prescriptions: New Aspirin 81 mg PO DAILY #30 Atorvastatin [Lipitor] 80 mg PO HS #30 tab Lisinopril [Zestril] 5 mg PO DAILY #30 tab Nitroglycerin Sl Tabs [Nitrostat] 0.4 mg SUBLINGUAL Q5M PRN #25 tab PRN Reason: Chest Pain Prasugrel [Effient] 10 mg PO DAILY #30 tab Continue Atenolol/Chlorthalidone [Atenolol-Chlorthalidone 50-25] 1 tab PO DAILY@1999 Doxazosin Mesylate 2 mg PO HS No Action LORazepam [Ativan] 2 mg PO TID PRN PRN Reason: Anxiety HYDROcodone/APAP 5-325MG [Yawkey 5-325] 1 tab PO BID PRN PRN Reason: Pain Butalb/Asprin/Caff 50-325-40Mg [Fiorinal 50-325-40 MG] 2 cap PO Q6H PRN PRN Reason: Severe Migraine Headache Butalb/Asprin/Caff 50-325-40Mg [Fiorinal 50-325-40 MG] 1 cap PO Q6H PRN PRN Reason: Moderate Migraine Headache Budesonide-Formot 160-4.5 Mcg [Symbicort 160-4.5 Mcg Inhaler] 2 puff INHALATION RT-BID Albuterol Inhaler [Ventolin Hfa Inhaler] 1 - 2 puff INHALATION RT-Q6H PRN PRN Reason: Dyspnea Clindamycin Phosphate [Cleocin T] 1 applic TOPICAL BID PRN PRN Reason: Left Axilla Boil Ergocalciferol [Vitamin D2] 50,000 unit PO QMONTH Discharge Medication List Atenolol/Chlorthalidone [Atenolol-Chlorthalidone 50-25] 1 tab PO DAILY@1999 [History] Doxazosin Mesylate 2 mg PO HS 04/22/14 [History] HYDROcodone/APAP 5-325MG [Yawkey 5-325] 1 tab PO BID PRN 04/22/14 [History] LORazepam [Ativan] 2 mg PO TID PRN 04/22/14 [History] Albuterol Inhaler [Ventolin Hfa Inhaler] 1 - 2 puff INHALATION RT-Q6H PRN [History] Budesonide-Formot 160-4.5 Mcg [Symbicort 160-4.5 Mcg Inhaler] 2 puff INHALATION RT-BID 10/02/16 [History] Butalb/Asprin/Caff 50-325-40Mg [Fiorinal 50-325-40 MG] 1 cap PO Q6H PRN [History] Butalb/Asprin/Caff 50-325-40Mg [Fiorinal 50-325-40 MG] 2 cap PO Q6H PRN [History] Clindamycin Phosphate [Cleocin T] 1 applic TOPICAL BID PRN 10/02/16 [History] Ergocalciferol [Vitamin D2] 50,000 unit PO QMONTH 10/02/16 [History] Aspirin 81 mg PO DAILY #30 10/05/16 [Rx] Atorvastatin [Lipitor] 80 mg PO HS #30 tab 10/05/16 [Rx] Lisinopril [Zestril] 5 mg PO DAILY #30 tab 10/05/16 [Rx] Nitroglycerin Sl Tabs [Nitrostat] 0.4 mg SUBLINGUAL Q5M PRN #25 tab 10/05/16 [Rx ] Prasugrel [Effient] 10 mg PO DAILY #30 tab 10/05/16 [Rx] Follow up Appointment(s)/Referral(s): Trenton Mccain MD [Primary Care Provider] - 10/09/16 11:00 am Inocente Bee MD [STAFF PHYSICIAN] - 10/12/16 3:15 pm Patient Instructions/Handouts: *Surgery [facility] - After Heart Catheterization - Nailhead Operator Instructions, Left Heart Catheterization (DC), How to Stop Smoking (DC), Heart Healthy Diet (DC) Activity/Diet/Wound Care/Special Instructions: *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
--- NOTE | 2016-10-05 17:17 | PN ---
DATE OF SERVICE: 10/05/2016 CHIEF COMPLAINT: Acute myocardial infarction. HISTORY OF PRESENT ILLNESS: This gentleman is doing well and will probably go home today. He did develop a hematoma in the right groin, but he has no pain in the right leg and it is not cool or painful. There is no numbness. PHYSICAL EXAMINATION: CHEST: Clear. CARDIAC: Normal. ABDOMEN: Soft, nontender and the right foot is warm with good pulses. IMPRESSIONS: 1. Status post myocardial infarction. 2. Right groin hematoma. PLAN: Probably home today.
--- NOTE | 2016-10-05 17:49 | PN ---
DATE OF SERVICE: 10/04/2016 CHIEF COMPLAINT: Coronary artery disease. HISTORY OF PRESENT ILLNESS: This gentleman had 2 stents placed yesterday and has been doing fairly well otherwise. He has developed some swelling in the right groin and may have hematoma. PHYSICAL EXAMINATION: CHEST: Clear. CARDIAC: Normal. ABDOMEN: Soft, nontender. There is some swelling of the right groin. Pulses are good in the right leg. IMPRESSION: 1. Coronary artery disease. 2. Acute myocardial infarction. 3. Status post stenting to coronary artery vessels. 4. Right groin will be watched.
--- NOTE | 2016-10-06 21:06 | PN ---
DATE OF SERVICE: 10/05/2016 CHIEF COMPLAINT: Acute ND. HISTORY OF PRESENT ILLNESS: This gentleman is doing well and he will probably be going home later today. This will be arranged by the nurse practitioner. We will see him in the office in 1 to 2 days.
--- NOTE | 2016-10-09 10:39 | CDI ---
In responding to this query, please exercise your independent professional judgment. The [facility] Coding Staff and Clinical Documentation Specialists appreciate your assistance in clarifying documentation, maintaining compliance with coding guidelines, accurately documenting patients condition and capturing severity of illness. The fact that a question is asked does not imply that any particular answer is desired or expected. Communication forms are a method of clarifying documentation and are not made part of the Legal Health Record. Thank you in advance for your clarification. Last Revision, July 2015 Debbie Klein [address] [facility] [place] [address] Documentation Clarification Form Date: 10/09/2016 10:27:00 AM From: Michelle Hoang Admit Date: 10/02/2016 5:44:00 PM Patient Name: Kavon Bellamy Visit Number: [id number] Discharge Date: 10/05/16 Dr. Trenton Mccain This patient developed a right groin hematoma. Not documented as postop hematoma. I felt a query was necessary. CDI did not review this account. 67 year old male underwent heart cath with PTCA and stent. Postprocedure patient did develop hematoma of the right groin documented in the discharge summary and progress notes. 10/04-US performed and was negative for pseudoaneurysm. Right groin hematoma reduced after holding pressure for 20 minutes. LOS of 3 days. Please clarify the cause of the hematoma: Postop hematoma from heart cath/PTCA An expected post-procedural or post-surgical condition Integral to the procedure Inherent to the procedure An unexpected post-procedural or post-surgical conditoin, related to surgical care Other, please specify Unable to determine Pleasee document your addendum in discharge summary FYI: Press F11 to launch patient chart Place X here if this finding has no clinical significance, is not applicable or if you are not able to provide any additional documentation. ORVILLE Stallings, CCS, [facility] Certified I-10 Curriculum Developer/Coat Hanger Shaper Machine Operator/Curriculum Developer II If you have any questions or concerns please contact Amanda Parish, Furniture Duster, Debbie Klein @ [phone] [facility]
--- NOTE | 2016-10-10 17:29 | CDI ---
In responding to this query, please exercise your independent professional judgment. The [facility] Coding Staff and Clinical Documentation Specialists appreciate your assistance in clarifying documentation, maintaining compliance with coding guidelines, accurately documenting patients condition and capturing severity of illness. The fact that a question is asked does not imply that any particular answer is desired or expected. Communication forms are a method of clarifying documentation and are not made part of the Legal Health Record. Thank you in advance for your clarification. Last Revision, July 2015 Debbie Klein [address] [facility] [place] [address] Documentation Clarification Form Date: 10/09/2016 10:27:00 AM From: Michelle Hoang Admit Date: 10/02/2016 5:44:00 PM Patient Name: Kavon Bellamy Visit Number: [id number] Discharge Date: 10/05/16 Dr. Inocente Bee This patient developed a right groin hematoma. Not documented as postop hematoma. I felt a query was necessary. [facility] did not review this account. 67 year old male underwent heart cath with PTCA and stent. Postprocedure patient did develop hematoma of the right groin documented in the discharge summary and progress notes. 10/04-US performed and was negative for pseudoaneurysm. Right groin hematoma reduced after holding pressure for 20 minutes. LOS of 3 days. Please clarify the cause of the hematoma: Postop hematoma from heart cath/PTCA An expected post-procedural or post-surgical condition Integral to the procedure Inherent to the procedure An unexpected post-procedural or post-surgical conditoin, related to surgical care Other, please specify Unable to determine Please document your addendum in your progress note or consult. FYI: Press F11 to launch patient chart Place X here if this finding has no clinical significance, is not applicable or if you are not able to provide any additional documentation. ORVILLE Stallings, CCS, [facility] Certified I-10 Stock Worker/Bolt Threader/Stock Worker II If you have any questions or concerns please contact Amanda Parish, Pumping Plant Operator, Debbie Klein @ [phone] [facility]
[2016-10-25] MEDS ORDERED: ERGOCALCIFEROL 50,000 UNIT CAP PO SCH (09:00)
== END 2016-10-05 12:20 | disposition home or self-care (01) | DRG 247 ==
LOC: EC 15:21 → 6SEL 17:44
PROVIDERS: ADMIT Family Medicine; ATTEND Family Medicine
PROC: B211YZZ Fluoroscopy of Multiple Coronary Arteries using Other Contrast (ICD-10-PCS; 2016-10-03)
PROC: 0270346 Dilation of Coronary Artery, One Artery, Bifurcation, with Drug-eluting Intraluminal Device, Percutaneous Approach (ICD-10-PCS; principal; 2016-10-03 10:24)
PROC: 4A023N7 Measurement of Cardiac Sampling and Pressure, Left Heart, Percutaneous Approach (ICD-10-PCS; 2016-10-03 10:24)
DX: I21.4 Non-ST elevation (NSTEMI) myocardial infarction (principal); N17.9 Acute kidney failure, unspecified; I13.10 Hypertensive heart and chronic kidney disease without heart failure, with stage 1 through stage 4 chronic kidney disease, or unspecified chronic kidney disease; J44.9 Chronic obstructive pulmonary disease, unspecified; G40.909 Epilepsy, unspecified, not intractable, without status epilepticus; F17.210 Nicotine dependence, cigarettes, uncomplicated; N18.2 Chronic kidney disease, stage 2 (mild); E78.00 Pure hypercholesterolemia, unspecified; N40.0 Benign prostatic hyperplasia without lower urinary tract symptoms; I45.10 Unspecified right bundle-branch block; I25.110 Atherosclerotic heart disease of native coronary artery with unstable angina pectoris; E78.5 Hyperlipidemia, unspecified; F41.9 Anxiety disorder, unspecified; Z88.2 Allergy status to sulfonamides; Z90.49 Acquired absence of other specified parts of digestive tract; F32.9 Major depressive disorder, single episode, unspecified; G89.29 Other chronic pain; M54.9 Dorsalgia, unspecified
CPT/HCPCS: 36415; 71020; 71275; 80048; 80053; 80061; 82550; 82553; 83735; 84484; 85025; 85379; 85610; 85730; 93005; 93306; 93458; 93975; 94640; 96361; 96365; 96376; 99285

== ENCOUNTER → 2018-11-25 | Outpatient (CLI) | payer OTHER ==
--- NOTE | 2018-11-25 14:00 | US ---
EXAMINATION TYPE: US kidneys/renal and bladder DATE OF EXAM: 11/25/2018 COMPARISON: US CLINICAL HISTORY: N18.3 CKD stage 3; borderline diabetes per patient. EXAM MEASUREMENTS: Right Kidney: 8.2 x 4.3 x 4.1 cm Left Kidney: 11.7 x 5.9 x 5.9 cm Post Void Residual Volume: 6.2 mL Right Kidney: smaller size than left kidney; multiple renal cysts are seen with largest at superior p ole = 2.1 x2.4 x 1.8cm; thin cortex at 6.6mm. Left Kidney: couple of renal cysts seen with largest simple cyst mid lateral pole = 3.9 x 4.3 x 3.5cm Bladder: wnl Bilateral Jets seen: very small right jet seen and normal left ureteral jet was seen. Normal Post Void Residual: yes. There is no evidence for hydronephrosis at this point in time. No nephrolithiasis is seen. The urina ry bladder is anechoic. IMPRESSION: Diminutive right kidney. Renal cystic changes noted.
== END | disposition home or self-care (01) ==
LOC: RADUSWWP 13:01
PROVIDERS: ATTEND Internal Medicine Nephrology
DX: N28.1 Cyst of kidney, acquired (principal)
CPT/HCPCS: 76770

== ENCOUNTER → 2019-02-03 | Outpatient (CLI) | payer OTHER ==
--- NOTE | 2019-02-03 15:29 | CTL ---
EXAMINATION TYPE: CT Low Dose Lung DATE OF EXAM ORDERED: 02/03/2019 HISTORY: 68-year-old male history of nicotine dependance. Lung cancer screening CT DLP: [address] CTDI: 1.95 mGy Automated exposure control for dose reduction was used. SCREENING VISIT: Baseline COMPARISON: CT angiogram chest 10/02/2016 TECHNIQUE: Low dose computed tomography scan was performed through the chest at 1 mm thick sections a nd reconstructed images in the coronal/sagittal plane. Additional coronal MIP reconstructions generat ed. CT DIAGNOSTIC QUALITY: Limited, but interpretable FINDINGS: Heart normal size with small pericardial effusion measuring 8 mm thick anteriorly and left laterally. Coronary vessel calcifications are present. Aorta normal caliber with mild atherosclerotic arch calcifications and conventional arch vessel branc reji anatomy. No thoracic lymphadenopathy. Moderate peribronchial cuffing and underlying mild to moderate centrilobular emphysema. There is patc hy interstitial and reticular density throughout the periphery of the left lung that appears somewhat increased from 10/02/2016. 4 mm posterior left basilar pulmonary nodule, axial image 250. 4 mm anterior left midlung pulmonary nodule, axial image 151. 4 mm pulmonary nodule anterior left midlung, axial image 133. Again, extensive patchy densities in the periphery of the left lung. On coronal MIP, some of these ar eas of nodular configurations, for example, coronal image 33, 37, 24, and 25. Visualized upper abdomen shows no gross abnormality. Cholecystectomy clips. Bones: No osseous destructive process. IMPRESSION: 1. LungRADS 3 - probably benign. Extensive patchy peripheral left lung densities some of which have a nodular appearance especially on coronal MIP. Correlate for possible etiologies such as atypical inf ections, bronchiolitis, or progressive scarring from 10/02/2016. 2. COPD with a prominent component of chronic bronchitis versus superimposed acute bronchitis. RECOMMENDATION: 1. Six-month follow-up CT chest to reassess the patchy nodularity in the periphery of the left lung. 2. Correlate to exclude an infectious or inflammatory etiology. FOLLOW UP CT CHEST RECOMMENDATION: [address] LUNG RAD: Lung-Rad 3 Probably Benign
== END | disposition home or self-care (01) ==
LOC: RADCTMAIN 11:04
DX: Z12.2 Encounter for screening for malignant neoplasm of respiratory organs (principal); J98.4 Other disorders of lung; F17.210 Nicotine dependence, cigarettes, uncomplicated

== ENCOUNTER → 2019-09-02 | Outpatient (CLI) | payer OTHER ==
--- NOTE | 2019-09-02 17:12 | CT ---
EXAMINATION TYPE: CT chest w con DATE OF EXAM: 09/02/2019 COMPARISON: CTA 10/02/2016, low-dose CT chest 02/03/2019 HISTORY: Follow up nodule. CT DLP: 681 mGycm, Automated exposure control for dose reduction was used. CONTRAST: Performed injected with 100 mL of Isovue 300. TECHNIQUE: Axial images were obtained at 5 mm thick sections. Reconstructed images are reviewed on [employer] computer in the coronal plane. FINDINGS: Portion of the thyroid visualized is normal. Emphysematous changes are present. Some underlying scarring may be within the lingula. Previous nodules identified within the lingula: Series 4 image 28:3 mm. Series 4 image 31:3 mm. Series 4 image 49:2 mm right No enlarged mediastinal or hilar adenopathy is evident. The there is a somewhat prominent left axil real lymph node with a transverse dimension of 1.1 cm. Series 3 image 12. Ascending aorta diameter at the level of the main pulmonary artery is 3.5 cm. The main pulmonary artery diameter at the bifurca tion is 2.[address] sections are obtained through the upper abdomen. There is a 2.7 cm cyst on the posterior s uperior right kidney measuring 7 Hounsfield units. IMPRESSIONS: 1. Stable or diminishing punctate nodularity previously identified. Recommend follow-up low-dose CT c hest in 6 months, on schedule for screening. 2. Emphysematous changes. Some scarring is likely present within the lingula.
== END | disposition home or self-care (01) ==
LOC: RADCTMAIN 13:46
PROVIDERS: ATTEND Nurse Practitioner Acute Care
DX: J43.9 Emphysema, unspecified (principal)
CPT/HCPCS: 82565; 84520; 71260; 36415; Q9967

== ENCOUNTER 2020-01-02 07:22 | Day surgery (SDC) | payer OTHER ==
[2019-12-31 11:18] VITALS: BMI 28.0
[~2020-01-02 07:22] MED LIST changes: -ADENOSINE 3 MG/ML 4 ML VIAL IVP ONE; +LACTATED RINGERS 1,000 ML IV SCH; +LIDOCAINE 1% (10MG/ML) FOR IV START INTRADERMA PRN; -SODIUM CHLORIDE 0.9% 100 ML BAG ONE
[2020-01-02 08:01] VITALS: RESP 16; TEMP 97.8
[2020-01-02 08:04] LABS: Glucose,Whole Blood 106 mg/dL (75-99)
[2020-01-02] MEDS ORDERED: PROPOFOL 10 MG/ML 20 ML VIAL IV ONE (08:28)
[2020-01-02] MEDS ORDERED: MIDAZOLAM 2 MG/2 ML VIAL ONE (08:28)
[2020-01-02] MEDS ORDERED: SODIUM CHLORIDE 0.9% 500 ML 500 ML IV ONE (09:12)
--- NOTE | 2020-01-02 09:14 | P.PCN ---
Date of Procedure: 01/02/20 Procedure(s) Performed: BRIEF HISTORY: Patient is a 69-year-old pleasant white male scheduled for an elective colonoscopy as a part of as a part of screening for colorectal neoplasia. PROCEDURE PERFORMED: Colonoscopy with biopsy snare polypectomy and tattooing with Cynthia in. PREOPERATIVE DIAGNOSIS: Screening for colon cancer. IV sedation per Anesthesia. PROCEDURE: After informed consent was obtained, the patient, was brought into the endoscopy unit. IV sedation was administered by Anesthesia under continuous monitoring. Digital rectal examination was normal. Initially the Olympus CF-160 flexible video colonoscope was then inserted in the rectum, gradually advanced into the cecum without any difficulty. Careful examination was performed as the scope was gradually being withdrawn. Ileocecal valve and the appendiceal orifice were visualized and appeared normal. Prep was excellent. Mucosa of the cecum, ascending colon, appeared normal. there was a 5 mm and 1 cm transverse colon polyp status post polypectomy in the descending colon there were 6 polyps all measuring between 7 mm to 1.5 cm in size all of which were removed by snare polypectomy. Also in the descending colon 2 cm broad-based descending colon polyp at 50 cm from the anal verge with friability of the mucosa circumferentia lly around the polyp status post multiple biopsies followed by snare polypectomy and tattooing with Cynthia ink. moderate left-sided diverticulosis seen. In the sigmoid colon there were 5 mm 4 sigmoid colon polyps status post polypectomy. Rectum appeared normal. Retroflexion was performed in the rectum and no lesions were noted and the patient tolerated the procedure IMPRESSION: 5 mm and 1 cm transverse colon polyp status post polypectomy 6 polyps in the descending colon all measuring between 7 mm to 1.5 cm in size all of which were removed by snare polypectomy 2 cm broad-based descending colon polyp at 50 cm from the anal verge with friability of the mucosa circumferentially around the polyp status post multiple biopsies followed by snare polypectomy and tattooing with Cynthia ink. 5 mm 4 sigmoid colon polyps status post polypectomy Left sided diverticulosis RECOMMENDATIONS: Findings of this examination were discussed with the patient. He was advised to follow up in the office in 2 weeks. Based the biopsy results will plan a repeat colonoscopy in 3-6 months.
[2020-01-02 09:27] VITALS: BP 120/79; PULSE 74
== END 2020-01-02 09:56 | disposition home or self-care (01) ==
LOC: ORWHC2ENDO 07:22
PROVIDERS: ATTEND Internal Medicine Gastroenterology
DX: Z12.11 Encounter for screening for malignant neoplasm of colon (principal); D12.3 Benign neoplasm of transverse colon; D12.4 Benign neoplasm of descending colon; K63.5 Polyp of colon; K57.30 Diverticulosis of large intestine without perforation or abscess without bleeding; I25.2 Old myocardial infarction; I10 Essential (primary) hypertension; E78.5 Hyperlipidemia, unspecified; J44.9 Chronic obstructive pulmonary disease, unspecified; F17.210 Nicotine dependence, cigarettes, uncomplicated; E11.9 Type 2 diabetes mellitus without complications; F32.9 Major depressive disorder, single episode, unspecified; F41.9 Anxiety disorder, unspecified; N40.0 Benign prostatic hyperplasia without lower urinary tract symptoms; G43.909 Migraine, unspecified, not intractable, without status migrainosus; Z88.2 Allergy status to sulfonamides; Z79.51 Long term (current) use of inhaled steroids; Z79.02 Long term (current) use of antithrombotics/antiplatelets; Z79.899 Other long term (current) drug therapy; Z98.890 Other specified postprocedural states; Z95.5 Presence of coronary angioplasty implant and graft
CPT/HCPCS: 88305; 45380; 45385; 45381; J2250; J2704

== ENCOUNTER → 2020-02-05 | Outpatient (CLI) | payer OTHER ==
--- NOTE | 2020-02-05 19:40 | CTL ---
EXAMINATION TYPE: CT Low Dose Lung DATE OF EXAM ORDERED: 02/05/2020 HISTORY: Personal tobacco use. Lung cancer screening CT DLP: 87 mGycm Automated exposure control for dose reduction was used. SCREENING VISIT: Follow-up COMPARISON: 02/03/2019 TECHNIQUE: Low dose computed tomography scan was performed through the chest at 1 mm thick sections a nd reconstructed images in the coronal plane at [address] DIAGNOSTIC QUALITY: Limited, but interpretable FINDINGS: LUNG NODULES: Present, detailed below: There is a 0.6 cm nodule within the lingula. Series 5 image 184. The previous 4 mm nodules are not clearly evident likely due to the limitation on the low-dose CT. LUNGS: COPD: Severity: Moderate Fibrosis: Severity: Mild Lymph nodes: No Other findings: None RIGHT PLEURAL SPACE: Effusion: None Calcification: None Thickening: None Pneumothorax: None LEFT PLEURAL SPACE: Effusion: None Calcification: None Thickening: None Pneumothorax: None HEART: Heart Size: Normal Coronary calcification: Mild Pericardial effusion: Minimal OTHER FINDINGS: Upper abdomen: Normal Bony thorax: Normal Supraclavicular region: Normal Other: The ascending thoracic aorta at the level of main pulmonary artery is 4.1 cm. The main pulmona ry artery the bifurcation is 2.6 cm. IMPRESSION: 1. A 0.6 cm nodule within the lingula which appears new. Consider PET CT for additional evaluation. 2. Increased linear markings can be related to some fibrosis or atelectasis. FOLLOW UP CT CHEST RECOMMENDATION: PET/CT CT LUNG RAD: 4
== END | disposition home or self-care (01) ==
LOC: RADCTMAIN 11:09
DX: Z12.2 Encounter for screening for malignant neoplasm of respiratory organs (principal); R91.1 Solitary pulmonary nodule; F17.210 Nicotine dependence, cigarettes, uncomplicated

== ENCOUNTER → 2020-03-12 | Outpatient (CLI) | payer OTHER ==
--- NOTE | 2020-03-12 15:55 | PE ---
Nuclear medicine PET/CT HISTORY: Abnormal chest CT, solitary pulmonary nodule, lung carcinoma initial Patient received 13.5 mCi F-18 FDG intravenously in delayed scanning was performed from the skull bas e to the mid thighs. Localization and attenuation correction CT scan was performed. Correlation to prior chest CT dated 02/05/2020, 09/02/2019 Chest and neck: The abnormality within the left chest in the lingula is again noted, there are some s cattered calcified nodules. There is no hypermetabolic uptake. There is no pleural or pericardial eff usion. No mediastinal, axillary, or hilar adenopathy, no supraclavicular or cervical adenopathy. Upta ke within the tongue and right side of the mouth, muscles of mastication is asymmetric greater on the right than on the left but is felt likely to be physiologic. Low uptake present within the right par ietal brain region could be due to underlying infarct. Tic is present within the musculature of the l ower neck and intercostal region which is likely physiologic. There are coronary calcifications prese nt. ABDOMEN: No retroperitoneal adenopathy or ascites. No adrenal mass. Patient is post cholecystectomy. No evident liver mass. Right kidney is atrophic and shows an associated cyst. Cysts at the lower pole of left kidney are present. Uptake within the musculature in the right gluteal region greater than l eft and within the debra of the hemidiaphragm on the right is likely physiologic. The prostate is enla rged. No pelvic adenopathy or free fluid. There is some prominence of the distal ureter in the left. Osseous structures show no suspicious uptake. IMPRESSION: No suspicious uptake is suspected.
== END | disposition home or self-care (01) ==
LOC: RADPETMAIN 11:17
PROVIDERS: ATTEND Nurse Practitioner Acute Care
DX: R91.1 Solitary pulmonary nodule (principal)
CPT/HCPCS: 78815; A9552

== ENCOUNTER 2020-09-01 06:52 | Day surgery (SDC) | payer OTHER ==
[2020-08-30 14:09] VITALS: BMI 29.5
[2020-09-01 07:22] VITALS: TEMP 96.7
[2020-09-01 07:38] LABS: Glucose,Whole Blood 110 mg/dL (75-99)
[2020-09-01] MEDS ORDERED: PROPOFOL 10 MG/ML 20 ML VIAL IV ONE (07:38)
--- NOTE | 2020-09-01 08:18 | P.PCN ---
Date of Procedure: 09/01/20 Procedure(s) Performed: BRIEF HISTORY: Patient is a 62-year-old pleasant male scheduled for an elective colonoscopy as a part of follow-up of multiple colon polyps noted on a recent colonoscopy in December 2019. He was noted to have a 3 cm broad-based descending colon polyp with friable mucosa that was biopsied and partially removed followed by tattooing with Cynthia ink. Biopsies came back as adenoma. His and scheduled for a surveillance colonoscopy for possible complete polypectomy PROCEDURE PERFORMED: Colonoscopy With biopsy and snare polypectomy PREOPERATIVE DIAGNOSIS: follow-up large descending colon polyp IV sedation per Anesthesia. PROCEDURE: After informed consent was obtained, the patient, was brought into the endoscopy unit. IV sedation was administered by Anesthesia under continuous monitoring. Digital rectal examination was normal. Initially the Olympus CF-160 flexible video colonoscope was then inserted in the rectum, gradually advanced into the cecum without any difficulty. Careful examination was performed as the scope was gradually being withdrawn. Ileocecal valve and the appendiceal orifice were visualized and appeared normal. Prep was excellent. Mucosa of the cecum, ascending colon, transverse colon appeared normal. In the descending colon at 50 cm from the anal verge there was a 3-4 cm flat/broad-based polyp with very friable mucosa and polypoid appearance status post multiple biopsies followed by attempted snare polypectomy and complete polypectomy could not be accomplished. The rest of the descending colon, sigmoid colon, and rectum appeared normal. scattered sigmoid diverticulosis seen. Retroflexion was performed in the rectum and no lesions were seen. The patient tolerated the procedure well. IMPRESSION: 3-4 cm flat/broad-based polyp abnormal appearing mucosa with friability and polypoid appearance in the descending colon at 50 cm from the anal verge status post multiple biopsies followed by partial piecemeal snare polypectomy (complete polypectomy not accomplished) 5 mm descending colon polyp status post polypectomy RECOMMENDATIONS: Findings of this examination were discussed with the patient as well as his family. He was advised to follow with the biopsy results. He'll be seen in office next week and based on the biopsy results will consider surgical consultation.
[2020-09-01 08:25] VITALS: RESP 16
[2020-09-01 08:37] VITALS: BP 147/87; PULSE 85
== END 2020-09-01 09:05 | disposition home or self-care (01) ==
LOC: ORWHC2ENDO 06:52
PROVIDERS: ATTEND Internal Medicine Gastroenterology
DX: Z12.11 Encounter for screening for malignant neoplasm of colon (principal); D12.4 Benign neoplasm of descending colon; K57.30 Diverticulosis of large intestine without perforation or abscess without bleeding; I10 Essential (primary) hypertension; E78.5 Hyperlipidemia, unspecified; J44.9 Chronic obstructive pulmonary disease, unspecified; I25.2 Old myocardial infarction; Z79.82 Long term (current) use of aspirin; Z79.02 Long term (current) use of antithrombotics/antiplatelets; Z79.891 Long term (current) use of opiate analgesic; Z79.51 Long term (current) use of inhaled steroids; Z79.899 Other long term (current) drug therapy; Z88.1 Allergy status to other antibiotic agents; Z88.5 Allergy status to narcotic agent; Z88.2 Allergy status to sulfonamides
CPT/HCPCS: 88305; 45380; 45385; J2704

== ENCOUNTER → 2020-09-22 | Outpatient (CLI) | payer OTHER ==
[2020-09-22 14:18] LABS: Appearance,Urine Clear (Clear); Bilirubin,Urine Negative (Negative); Blood,Urine Negative (Negative); Color,Urine Yellow; Glucose,Urine (UA) Negative (Negative); Ketones,Urine Negative (Negative); Leukocyte Esterase,Urine Negative (Negative); Nitrite,Urine Negative (Negative); PH, Urine 6.5 (5.0-8.0); Protein,Urine Negative (Negative); Specific Gravity,Urine 1.019 (1.001-1.035); Urobilinogen,Urine <2.0 mg/dL (<2.0)
[2020-09-22 14:30] LABS: Creatinine,Urine Random 154.3 mg/dL; Protein/Creatinine Ratio,Urine 0.084
[2020-09-22 19:28] LABS: Basophils # (A) 0.03 X 10*3/uL (0.00-0.10); Basophils % (A) 0.3 %; Eosinophils # (A) 0.37 X 10*3/uL (0.04-0.35); Eosinophils % (A) 4.3 %; HCT 43.4 % (39.6-50.0); HGB 13.8 g/dL (13.0-17.0); Lymphocytes % (A) 24.3 %; MCH 27.7 pg (27.0-32.0); MCHC 31.8 g/dL (32.0-37.0); MCV 87.1 fL (80.0-97.0); Mean Platelet Volume 9.7 fL (9.5-12.2); Monocytes # (A) 0.33 X 10*3/uL (0.20-1.00); Monocytes % (A) 3.8 %; Neutrophils # (A) 5.73 X 10*3/uL (1.80-7.70); Neutrophils % (A) 66.5 %; Platelet Count 212 X 10*3/uL (140-440); RBC 4.98 X 10*6/uL (4.40-5.60); RDW 15.6 % (11.5-14.5); WBC 8.63 X 10*3/uL (4.50-10.00)
[2020-09-23 00:15] LABS: Ferritin 112.8 ng/mL (22.0-322.0)
[2020-09-23 00:27] LABS: % Iron Saturation 22.14 (15.00-50.00); African American GFR (CKD) 50.6 (60.0-200.0); Anion Gap 7.7 mmol/L (4.00-12.00); BUN/Creat Ratio 11.25 Ratio (12.00-20.00); Calcium 8.9 mg/dL (8.7-10.3); Carbon Dioxide 24.3 mmol/L (21.6-31.8); Non-African American GFR(CKD) 43.6 (60.0-200.0); Phosphorus 2.9 mg/dL (2.4-5.1); Potassium 4.7 mmol/L (3.5-5.5)
== END | disposition home or self-care (01) ==
LOC: LABWHC1 13:07
PROVIDERS: ATTEND Nurse Practitioner Family
DX: N25.81 Secondary hyperparathyroidism of renal origin (principal); E61.1 Iron deficiency; D64.9 Anemia, unspecified; N18.30 Chronic kidney disease, stage 3 unspecified; E55.9 Vitamin D deficiency, unspecified; M10.9 Gout, unspecified; N39.0 Urinary tract infection, site not specified; R80.9 Proteinuria, unspecified
CPT/HCPCS: 36415; 80048; 81003; 82040; 82306; 82570; 82728; 83540; 83550; 83735; 83970; 84100; 84156; 84550; 85025

== ENCOUNTER → 2020-11-18 | Outpatient (CLI) | payer OTHER ==
--- NOTE | 2020-11-18 12:10 | XR ---
EXAMINATION TYPE: XR chest 2V DATE OF EXAM: 11/18/2020 COMPARISON: 10/02/2016, 09/02/2019 HISTORY: Chronic obstructive pulmonary disease, preoperative TECHNIQUE: Frontal and lateral views of the chest are obtained. FINDINGS: There is now extensive opacity of the left lung, particularly in the mid and lower left lung which hector s worsened since the prior CT slightly over a year ago. Cardiac silhouette is partially obscured by pulmonary findings. IMPRESSION: There is now extensive opacity of the left lung, particularly in the mid and lower left lung which hector s worsened since the prior CT slightly over a year ago. CT may be helpful for further evaluation.
== END | disposition home or self-care (01) ==
LOC: RADXRMAIN 10:33
PROVIDERS: ATTEND Surgery Plastic and Reconstructive Surgery
DX: Z01.818 Encounter for other preprocedural examination (principal); J44.9 Chronic obstructive pulmonary disease, unspecified
CPT/HCPCS: 71046

== ENCOUNTER → 2021-03-10 | Outpatient (CLI) | payer OTHER ==
[2021-03-10 12:35] LABS: Appearance,Urine Clear (Clear); Bilirubin,Urine Negative (Negative); Blood,Urine Negative (Negative); Color,Urine Yellow; Glucose,Urine (UA) Negative (Negative); Ketones,Urine Negative (Negative); Leukocyte Esterase,Urine Negative (Negative); Nitrite,Urine Negative (Negative); Protein,Urine Negative (Negative); Specific Gravity,Urine 1.021 (1.001-1.035); Urobilinogen,Urine <2.0 mg/dL (<2.0)
[2021-03-10 14:37] LABS: Protein/Creatinine Ratio,Urine 0.068
[2021-03-10 18:04] LABS: Basophils # (A) 0.04 X 10*3/uL (0.00-0.10); Basophils % (A) 0.4 %; Eosinophils # (A) 0.26 X 10*3/uL (0.04-0.35); Eosinophils % (A) 2.5 %; HCT 45.5 % (39.6-50.0); HGB 14.7 g/dL (13.0-17.0); Lymphocytes # (A) 2.08 X 10*3/uL (0.90-5.00); Lymphocytes % (A) 20.4 %; MCH 28.2 pg (27.0-32.0); MCHC 32.3 g/dL (32.0-37.0); MCV 87.3 fL (80.0-97.0); Mean Platelet Volume 9.3 fL (9.5-12.2); Monocytes # (A) 0.43 X 10*3/uL (0.20-1.00); Monocytes % (A) 4.2 %; Neutrophils # (A) 7.28 X 10*3/uL (1.80-7.70); Neutrophils % (A) 71.4 %; Platelet Count 203 X 10*3/uL (140-440); RBC 5.21 X 10*6/uL (4.40-5.60); RDW 15.5 % (11.5-14.5)
[2021-03-10 21:52] LABS: % Iron Saturation 15.04 (15.00-50.00); African American GFR (CKD) 53.4 (60.0-200.0); BUN/Creat Ratio 12.42 Ratio (12.00-20.00); Calcium 9.5 mg/dL (8.7-10.3); Carbon Dioxide 23.3 mmol/L (21.6-31.8); Phosphorus 2.8 mg/dL (2.4-5.1); Potassium 5.2 mmol/L (3.5-5.5); Uric Acid 5.6 mg/dL (3.7-8.7)
== END | disposition home or self-care (01) ==
LOC: LABWHC1 11:17
PROVIDERS: ATTEND Nurse Practitioner Family
DX: E61.1 Iron deficiency (principal); N18.30 Chronic kidney disease, stage 3 unspecified; N39.0 Urinary tract infection, site not specified; M10.9 Gout, unspecified; E21.3 Hyperparathyroidism, unspecified; E55.9 Vitamin D deficiency, unspecified; D64.9 Anemia, unspecified
CPT/HCPCS: 36415; 80048; 81001; 81003; 82040; 82306; 82570; 82728; 83540; 83550; 83735; 83970; 84100; 84156; 84550; 85025

== ENCOUNTER → 2021-04-13 | Outpatient (CLI) | payer OTHER ==
--- NOTE | 2021-04-13 14:35 | US ---
EXAMINATION TYPE: US kidneys/renal and bladder DATE OF EXAM: 04/13/2021 COMPARISON: NONE CLINICAL HISTORY: N18.3 CKD stage 3. EXAM MEASUREMENTS: Right Kidney: 6.7 x 2.3 x 3.1 cm Left Kidney: 10.6 x 6.1 x 5.3 cm Right Kidney: atrophied, cyst measuring Left Kidney: two cysts measuring 4.2 x 3.8 x 4.4cm, 4.0 x 3.1 x 3.1 Bladder: wnl IMPRESSION: 1. Renal cyst superior pole atrophy right kidney. 2. Benign-appearing simple left renal cysts
== END | disposition home or self-care (01) ==
LOC: RADUSWWP 13:51
PROVIDERS: ATTEND Internal Medicine Nephrology
DX: N18.30 Chronic kidney disease, stage 3 unspecified (principal); N28.1 Cyst of kidney, acquired
CPT/HCPCS: 76770

== ENCOUNTER → 2022-04-17 | Outpatient (CLI) | payer OTHER ==
--- NOTE | 2022-04-17 15:04 | CTL ---
EXAMINATION TYPE: CT Low Dose Lung DATE OF EXAM ORDERED: 04/17/2022 COMPARISON: 02/05/2020 and 02/03/2019 HISTORY: . Low Dose CT Lung Screening CT DLP: [address] CTDI: 2.14 mGy IV CONTRAST USED: None. SCREENING VISIT: There TECHNIQUE: Low dose computed tomography scan was performed through the chest at 1 millimeter thick se ctions and reconstructed images in the coronal plane at [address] DIAGNOSTIC QUALITY: Limited FINDINGS: LUNG NODULES: Again noted is granular appearance to the examination which is a limiting factor. 6 mm lingular nodule is essentially unchanged. There is evidence of nodular fibrotic change primarily with in the periphery of the left upper lobe and lingula in addition to the left lower lobe. The right jarvis g is clear and free of nodule or mass. LUNGS: COPD: Severity: Mild Fibrosis: Severity: Mild to moderate left-sided Lymph nodes: None Other findings: None RIGHT PLEURAL SPACE: Effusion: None Calcification: None Thickening: None Pneumothorax: None LEFT PLEURAL SPACE: Effusion: None Calcification: None Thickening: None Pneumothorax: None HEART: Heart Size: Mildly enlarged Coronary calcification: Mild Pericardial effusion: None OTHER FINDINGS: Upper abdomen: No significant abnormality Bony thorax: Degenerative changes Supraclavicular region: No significant abnormalityOther: No significant abnormalityI IMPRESSION: 6 mm lingular nodule is essentially unchanged. There is evidence of stable nodular fibrotic change p rimarily within the periphery of the left upper lobe and lingula in addition to the left lower lobe FOLLOW UP CT CHEST RECOMMENDATION: Follow-up screening in one year CT LUNG RAD: LUNG RAD CATEGORY 2 benign appearance or behavior
== END | disposition home or self-care (01) ==
LOC: RADCTMAIN 14:25
DX: Z12.2 Encounter for screening for malignant neoplasm of respiratory organs (principal); R91.8 Other nonspecific abnormal finding of lung field; Z87.891 Personal history of nicotine dependence
CPT/HCPCS: 71271

== ENCOUNTER 2022-05-16 06:44 | Day surgery (SDC) | payer OTHER ==
[2022-05-12 11:48] VITALS: BMI 28.0
[2022-05-16 07:12] VITALS: TEMP 97.1
[2022-05-16 07:27] LABS: Glucose,Whole Blood 139 mg/dL (70-110)
[2022-05-16] MEDS ORDERED: PROPOFOL 10 MG/ML 20 ML VIAL IV ONE (07:52)
[2022-05-16] MEDS ORDERED: LIDOCAINE 2% INJ 20 MG/ML (2 ML VIAL) ONE (07:52)
[2022-05-16 09:06] VITALS: BP 130/71; PULSE 78; RESP 16
--- NOTE | 2022-05-16 10:37 | P.PCN ---
Date of Procedure: 05/16/22 Procedure(s) Performed: BRIEF HISTORY: Patient is a 71-year-old pleasant white male scheduled for an elective colonoscopy as a part of evaluation of prior history of colon polyps. He was noted to have a large 3 cm descending colon polyp originally in December 2019. Biopsies revealed tubular adenoma. He had a repeat surveillance colonoscopy in August 2020 and was noted to have a 3-4 cm residual fat broad- based polyp in the sigmoid colon which was once again removed by partial snare piecemeal snare polypectomy and have a complete polypectomy could not be accomplished. Biopsies revealed adenoma. He was sent for surgical evaluation and was seen by Dr. Pike and had a repeat colonoscopy in 08/2021 with complete polypectomy and no surgical intervention was performed. He scheduled for a repeat surveillance colonoscopy today. PROCEDURE PERFORMED: Colonoscopy snare polypectomy and argon plasma coagulation. PREOPERATIVE DIAGNOSIS: Follow-up large descending colon polyp initially noted in December 2019. IV sedation per Anesthesia. PROCEDURE: After informed consent was obtained, the patient, was brought into the endoscopy unit. IV sedation was administered by Anesthesia under continuous monitoring. Digital rectal examination was normal. Initially the Olympus CF-160 flexible video colonoscope was then inserted in the rectum, gradually advanced into the cecum without any difficulty. Careful examination was performed as the scope was gradually being withdrawn. Ileocecal valve and the appendiceal orifice were visualized and appeared normal. Prep was excellent. Mucosa of the cecum and a 5 mm polyp that was removed by snare polypectomy. The ascending colon, transverse colon, appeared normal. In the descending colon there was a 5 mm and another 2.5 cm residual polyp noted at the previous polypectomy site where the area was was tattooing with Cynthia ink. This polyp was removed by piecemeal snare polypectomy followed by argon plasma coagulation. Rest of the descending colon, sigmoid colon, and rectum appeared normal. Retroflexion was performed in the rectum and no lesions were seen. The patient tolerated the procedure well. IMPRESSION: 5 mm cecal polyp status post polypectomy 5 mm sigmoid colon polyp status post polypectomy 2.5 cm broad-based i descending colon polyp status post snare polypectomy followed by argon plasma coagulation RECOMMENDATIONS: Findings of this examination were discussed with the patient well as his family. He was advised to follow with the biopsy results. He'll be seen in office in a week from now and will discuss further management based the biopsy results. We'll consider repeat colonoscopy in 6 months versus surgical management..
== END 2022-05-16 09:07 | disposition home or self-care (01) ==
LOC: ORWHC2ENDO 06:44
PROVIDERS: ATTEND Internal Medicine Gastroenterology
DX: Z12.11 Encounter for screening for malignant neoplasm of colon (principal); D12.0 Benign neoplasm of cecum; D12.4 Benign neoplasm of descending colon; Z87.19 Personal history of other diseases of the digestive system
CPT/HCPCS: 88305; 45382; 45385; J2704; J2001

== ENCOUNTER → 2022-06-09 | Outpatient (CLI) | payer OTHER ==
[2022-06-09 18:30] LABS: % Iron Saturation 11.41 (15.00-50.00); African American GFR (CKD) 43.5 (60.0-200.0); Anion Gap 10.3 mmol/L (10.00-18.00); BUN/Creat Ratio 11.67 Ratio (12.00-20.00); Calcium 8.8 mg/dL (8.7-10.3); Carbon Dioxide 25.7 mmol/L (20.0-27.5); Magnesium 1.9 mg/dL (1.5-2.4); Non-African American GFR(CKD) 37.6 (60.0-200.0); Phosphorus 2.4 mg/dL (2.4-5.1); Potassium 4.7 mmol/L (3.5-5.5); Uric Acid 5.8 mg/dL (3.7-8.7)
[2022-06-09 18:31] LABS: Basophils # (A) 0.01 X 10*3/uL (0.00-0.10); Basophils % (A) 0.2 %; Eosinophils # (A) 0.08 X 10*3/uL (0.04-0.35); Eosinophils % (A) 1.5 %; HCT 44.8 % (39.6-50.0); HGB 14.2 g/dL (13.0-17.0); Immature Grans, Automated 0.6 %; Lymphocytes # (A) 1.67 X 10*3/uL (0.90-5.00); Lymphocytes % (A) 31.9 %; MCH 27.2 pg (27.0-32.0); MCHC 31.7 g/dL (32.0-37.0); MCV 85.7 fL (80.0-97.0); Mean Platelet Volume 9.5 fL (9.5-12.2); Monocytes # (A) 0.29 X 10*3/uL (0.20-1.00); Monocytes % (A) 5.5 %; NRBC Per 100 WBC 0 /100 WBCS (0.0-0.0); Neutrophils # (A) 3.15 X 10*3/uL (1.80-7.70); Neutrophils % (A) 60.3 %; Platelet Count 147 X 10*3/uL (140-440); RBC 5.23 X 10*6/uL (4.40-5.60); RDW 14.7 % (11.5-14.5); WBC 5.23 X 10*3/uL (4.50-10.00)
[2022-06-09 18:43] LABS: Albumin 3.7 g/dL (3.8-4.9)
== END | disposition home or self-care (01) ==
LOC: LABWHC1 12:19
PROVIDERS: ATTEND Nurse Practitioner Family
DX: N25.81 Secondary hyperparathyroidism of renal origin (principal); E55.9 Vitamin D deficiency, unspecified; M10.9 Gout, unspecified; N39.0 Urinary tract infection, site not specified; N18.30 Chronic kidney disease, stage 3 unspecified; D63.1 Anemia in chronic kidney disease; R80.9 Proteinuria, unspecified
CPT/HCPCS: 36415; 80048; 82040; 82306; 82728; 83540; 83550; 83735; 83970; 84100; 84550; 85025

== ENCOUNTER → 2022-11-01 | Outpatient (CLI) | payer OTHER ==
[2022-11-01 15:32] LABS: Appearance,Urine Clear (Clear); Bilirubin,Urine Negative (Negative); Blood,Urine Negative (Negative); Color,Urine Yellow; Glucose,Urine (UA) Negative (Negative); Ketones,Urine Negative (Negative); Leukocyte Esterase,Urine Negative (Negative); Nitrite,Urine Negative (Negative); PH, Urine 5.5 (5.0-8.0); Protein,Urine Trace (Negative); Specific Gravity,Urine 1.019 (1.001-1.035); Urobilinogen,Urine <2.0 mg/dL (<2.0)
[2022-11-02 02:31] LABS: Basophils # (A) 0.05 X 10*3/uL (0.00-0.10); Basophils % (A) 0.6 %; Eosinophils # (A) 0.22 X 10*3/uL (0.04-0.35); Eosinophils % (A) 2.8 %; HCT 45.6 % (39.6-50.0); HGB 15.2 d/dL (12.0-15.0); Lymphocytes # (A) 2.09 X 10*3/uL (0.90-5.00); Lymphocytes % (A) 26.9 %; MCH 28.7 pg (27.0-32.0); MCHC 33.3 d/dL (32.0-37.0); MCV 86.2 FL (80.0-97.0); Mean Platelet Volume 9.5 FL (9.5-12.2); Monocytes # (A) 0.55 X 10*3/uL (0.20-1.00); Monocytes % (A) 7.1 %; NRBC Per 100 WBC 0 X 10*3/uL (0.00-0.01); Neutrophils # (A) 4.71 X 10*3/uL (1.80-7.70); Neutrophils % (A) 60.7 %; Platelet Count 201 X 10*3/uL (140-440); RBC 5.29 X 10*6/uL (4.40-5.60); RDW 14.6 % (11.5-14.5); WBC 7.77 X 10*3/uL (4.50-10.00)
[2022-11-02 02:40] LABS: % Iron Saturation 19.24 (15.00-50.00); Albumin 3.8 d/dL (3.8-4.9); BUN/Creat Ratio 11.79 Ratio (12.00-20.00); Blood Urea Nitrogen 22.4 mg/dL (9.0-27.0); Calcium 9.5 mg/dL (8.7-10.3); Carbon Dioxide 21.3 mmol/L (21.6-31.8); Chloride 106 mmol/L (96-109); Glucose 117 mg/dL (70-110); Iron 56 UG/DL (65-175); Magnesium 2.1 mg/dL (1.5-2.4); Phosphorus 3.2 mg/dL (2.4-5.1); Potassium 4.7 mmol/L (3.5-5.5); Sodium 139 mmol/L (135-145); Total Iron Binding Capacity 291 UG/DL (228-460); Uric Acid 6.5 mg/dL (3.7-8.7)
== END | disposition home or self-care (01) ==
LOC: LABWHC1 14:11
PROVIDERS: ATTEND Internal Medicine Nephrology
DX: E55.9 Vitamin D deficiency, unspecified (principal); E61.1 Iron deficiency; N25.81 Secondary hyperparathyroidism of renal origin; M10.9 Gout, unspecified; N39.0 Urinary tract infection, site not specified; N18.32 Chronic kidney disease, stage 3b; R80.9 Proteinuria, unspecified
CPT/HCPCS: 36415; 80048; 81003; 82040; 82043; 82306; 82570; 83540; 83550; 83735; 83970; 84100; 84550; 85025

== ENCOUNTER 2022-11-10 07:29 | Day surgery (SDC) | payer OTHER ==
[2022-11-10] MEDS ORDERED: LACTATED RINGERS 1,000 ML IV ONE (07:42)
[2022-11-10] MEDS ORDERED: LACTATED RINGERS 1,000 ML IV SCH (07:58)
[2022-11-10 08:08] VITALS: RESP 16; TEMP 97.2
[2022-11-10 08:10] LABS: Glucose,Whole Blood 142 mg/dL (70-110)
[2022-11-10] MEDS ORDERED: PROPOFOL 10 MG/ML 20 ML VIAL IV ONE (08:36)
[2022-11-10 09:34] VITALS: BP 166/82; PULSE 83
--- NOTE | 2022-11-10 09:55 | P.PCN ---
Date of Procedure: 11/10/22 Procedure(s) Performed: BRIEF HISTORY: Patient is a in 9 to-year-old pleasant white male scheduled for an elective colonoscopy as a part of evaluation of recurrent descending colon polyp that was initially diagnosed in December 2019. He was noted to have a 4 cm broad-based polyp that was removed by piecemeal snare polypectomy that revealed adenoma.. Repeat colonoscopy 6 months later revealed a residual 2 cm polyp that was once again removed and it revealed tumor adenoma. A year later he had recurrent and hence he was referred to in [facility]. The patient subsequently had another colonoscopy by the surgeon and apparently a small residual polyp was identified which was completely removed. I performed his last colonoscopy in May 2022 and once again there was a 2.5 cm residual polyp that was identified which was removed in a piecemeal fashion and argon plasma coag ablation was performed and biopsy revealed adenoma. He scheduled for repeat surveillance colonoscopy in 6 months PROCEDURE PERFORMED: Colonoscopy with snare polypectomy and argon plasma coag. PREOPERATIVE DIAGNOSIS: Recurrent descending colon polyp since December 2019. IV sedation per Anesthesia. PROCEDURE: After informed consent was obtained, the patient, was brought into the endoscopy unit. IV sedation was administered by Anesthesia under continuous monitoring. Digital rectal examination was normal. Initially the Olympus CF-160 flexible video colonoscope was then inserted in the rectum, gradually advanced into the cecum without any difficulty. Careful examination was performed as the scope was gradually being withdrawn. Ileocecal valve and the appendiceal orifice were visualized and appeared normal. Prep was excellent. Mucosa of the cecum, ascending colon, transverse colon, appeared normal. In the descending colon at 60 cm from the anal verge once again there was a 2 cm ascending polyp identified which was removed by her snare polypectomy and piecemeal fashion followed by argon plasma coagulation and complete polypectomy was accomplished. Rest of the descending colon, sigmoid colon, and rectum appeared normal. Scattered sigmoid diverticula Retroflexion was performed in the rectum and no lesions were seen. The patient tolerated the procedure well. IMPRESSION: 2 cm residual descending colon polyp at 60 cm from the anal verge status post snare polypectomy followed by argon plasma coagulation Scattered sigmoid diverticulosis RECOMMENDATIONS: Findings of this examination were discussed with the patient as well as his family. At this time will await the biopsy results. He'll be seen in office in 1 week and will discuss regarding surgical intervention was repeat colonoscopy in 6 months.
== END 2022-11-10 10:10 | disposition home or self-care (01) ==
LOC: ORWHC2ENDO 07:29
PROVIDERS: ATTEND Internal Medicine Gastroenterology
DX: Z12.11 Encounter for screening for malignant neoplasm of colon (principal); D12.4 Benign neoplasm of descending colon; K57.30 Diverticulosis of large intestine without perforation or abscess without bleeding; I25.2 Old myocardial infarction; I11.0 Hypertensive heart disease with heart failure; I50.9 Heart failure, unspecified; Z95.5 Presence of coronary angioplasty implant and graft; E78.5 Hyperlipidemia, unspecified; I49.9 Cardiac arrhythmia, unspecified; J44.9 Chronic obstructive pulmonary disease, unspecified; F17.210 Nicotine dependence, cigarettes, uncomplicated; E11.9 Type 2 diabetes mellitus without complications; N40.0 Benign prostatic hyperplasia without lower urinary tract symptoms; G43.909 Migraine, unspecified, not intractable, without status migrainosus; F41.9 Anxiety disorder, unspecified; Z86.73 Personal history of transient ischemic attack (TIA), and cerebral infarction without residual deficits; Z79.51 Long term (current) use of inhaled steroids; Z79.899 Other long term (current) drug therapy; Z88.1 Allergy status to other antibiotic agents; Z88.2 Allergy status to sulfonamides; Z88.8 Allergy status to other drugs, medicaments and biological substances
CPT/HCPCS: 88305; 45388; J2704; 45385

== ENCOUNTER 2023-01-15 12:11 | Day surgery (SDC) | payer OTHER ==
[2023-01-15 12:41] VITALS: RESP 16; TEMP 97.9
[2023-01-15] MEDS ORDERED: LACTATED RINGERS 1,000 ML IV ONE (12:45)
[2023-01-15] MEDS ORDERED: PROPOFOL 10 MG/ML 20 ML VIAL IV ONE (14:08)
--- NOTE | 2023-01-15 14:38 | P.GSHP ---
History of Present Illness H&P Date: 01/15/23 Chief Complaint: History colon Polyp This is a 72-year-old male who has previous history of large polyp. Patient resents today for colonoscopy scheduled for low anterior section tomorrow. Past Medical History Past Medical History: Chest Pain / Angina, COPD, Diabetes Mellitus, Hyperlipidemia, Hypertension, Myocardial Infarction ([place]), Prostate Disorder Additional Past Medical History / Comment(s): arrhythmia, seizures as child, BPH, migraines, abdominal hernia,cysts on kidneys, hx. colon polyps, borderline diabetes Last Myocardial Infarction Date:: 2016 History of Any Multi-Drug Resistant Organisms: None Reported Past Surgical History: Cholecystectomy, Heart Catheterization With Stent, Tonsillectomy Additional Past Surgical History / Comment(s): COLONOSCOPY Past Anesthesia/Blood Transfusion Reactions: No Reported Reaction Date of Last Stent Placement:: 2016 Past Psychological History: Anxiety Smoking Status: Current every day smoker Past Alcohol Use History: None Reported Additional Past Alcohol Use History / Comment(s): smokes less than 1 ppd,, started smoking age 19 Past Drug Use History: Marijuana Additional Drug Use History / Comment(s): occasional marijuana use-knows to refrain 24 hrs prior to procedure - Past Family History Father Family Medical History: Cancer Mother Family Medical History: Cancer Medications and Allergies Home Medications Medication Instructions Recorded Confirmed Type Doxazosin Mesylate 2 mg PO HS 04/22/14 01/15/23 History LORazepam [Ativan] 2 mg PO BID PRN 04/22/14 01/15/23 History Budesonide-Formot 160-4.5 Mcg 2 puff INHALATION RT-BID PRN 10/02/16 01/15/23 History [Symbicort 160-4.5 Mcg Inhaler] Atorvastatin [Lipitor] 80 mg PO HS #30 tab 10/05/16 01/15/23 Rx Clopidogrel [Plavix] 75 mg PO QAM 12/31/19 01/15/23 History atenoloL [Tenormin] 50 mg PO QAM 12/31/19 01/15/23 History Butalb/APAP/Caff 50-325-40Mg 1 tab PO DIRECTED PRN 08/30/20 01/15/23 History [Fioricet 50-325-40] Allergies Allergy/AdvReac Type Severity Reaction Status Date / Time ciprofloxacin Allergy Unknown Unknown Verified 01/15/23 12:31 Sulfa (Sulfonamide AdvReac Severe Seizure Verified 01/15/23 12:31 Antibiotics) tramadol [From Ultram] AdvReac Unknown Nausea Verified 01/15/23 12:31 Surgical - Exam Vital Signs Temp Pulse Resp BP Pulse Ox 97.9 F 82 16 159/76 96 01/15/23 12:38 01/15/23 12:38 01/15/23 12:38 01/15/23 12:38 01/15/23 12:38 - General well developed, well nourished, no distress - Eyes PERRL - ENT normal pinna - Neck no masses - Respiratory normal expansion - Cardiovascular Rhythm: regular - Abdomen Abdomen: soft, non tender Assessment and Plan Assessment: History of colon polyp. We'll perform colonoscopy.
--- NOTE | 2023-01-15 14:41 | P.OP ---
Date of Procedure: 01/15/23 Preoperative Diagnosis: History of colon polyp Postoperative Diagnosis: Diverticulosis Procedure(s) Performed: Colonoscopy Anesthesia: MAC Surgeon: Maynor Snowden Pathology: none sent Condition: stable Disposition: PACU Description of Procedure: The patient's placed on the endoscopy table in the lateral position. He received IV sedation. Digital rectal exam. This revealed external hemorrhoids. The flexible colonoscope was then placed patient anus passed throughout the colon. The patient a poor colon prep. Large amount stool in the colon. The scope could not be advanced beyond the sigmoid colon secondary to tortuosity the valve. In the poor colon prep. This point scope was withdrawn. The visualized sigmoid colon appeared to have is extensive diverticular disease. The rectum appeared normal. Scope withdrawn for patient.
[2023-01-15 15:15] VITALS: BP 124/76; PULSE 79
== END 2023-01-15 16:01 | disposition home or self-care (01) ==
LOC: ORWHC2ENDO 12:11
PROVIDERS: ATTEND Surgery
DX: Z12.11 Encounter for screening for malignant neoplasm of colon (principal); K57.30 Diverticulosis of large intestine without perforation or abscess without bleeding; K64.4 Residual hemorrhoidal skin tags; I25.2 Old myocardial infarction; I10 Essential (primary) hypertension; I25.10 Atherosclerotic heart disease of native coronary artery without angina pectoris; E78.5 Hyperlipidemia, unspecified; J44.9 Chronic obstructive pulmonary disease, unspecified; F41.9 Anxiety disorder, unspecified; F12.90 Cannabis use, unspecified, uncomplicated; F17.210 Nicotine dependence, cigarettes, uncomplicated; N40.0 Benign prostatic hyperplasia without lower urinary tract symptoms; Z88.1 Allergy status to other antibiotic agents; Z88.2 Allergy status to sulfonamides; Z88.8 Allergy status to other drugs, medicaments and biological substances; Z79.02 Long term (current) use of antithrombotics/antiplatelets; Z79.83 Long term (current) use of bisphosphonates; Z79.51 Long term (current) use of inhaled steroids; Z95.5 Presence of coronary angioplasty implant and graft; Z79.899 Other long term (current) drug therapy; Z98.890 Other specified postprocedural states; Z86.010 Personal history of colon polyps
CPT/HCPCS: 86900; 86901; 86850; 45330; J2704

== ENCOUNTER 2023-01-16 08:42 | Inpatient (IN) | payer OTHER ==
[2023-01-15 11:18] VITALS: BMI 30.4
[~2023-01-16 08:42] MED LIST changes: +ACETAMINOPHEN TAB 500 MG TAB PO PRN; +HEPARIN SODIUM,PORCINE/PF 5,000 UNIT/0.5 ML SYRINGE SQ PRN; -LACTATED RINGERS 1,000 ML IV SCH; -LIDOCAINE 1% (10MG/ML) FOR IV START INTRADERMA PRN; +metroNIDAZOLE-NS PMX 500 MG in SALINE 1 100ML.BAG IVPB PRN
[2023-01-16 09:24] LABS: Glucose,Whole Blood 138 mg/dL (70-110)
[2023-01-16 09:38] LABS: ALT 24 U/L (4-49); AST 25 U/L (17-59); African American GFR (CKD) 38 (>60 ml/min/1.73 sqM); Alkaline Phosphatase 110 U/L (38-126); Anion Gap 10 mmol/L; Blood Urea Nitrogen 20 mg/dL (9-20); Calcium 8.7 mg/dL (8.4-10.2); Carbon Dioxide 21 mmol/L (22-30); Chloride 105 mmol/L (98-107); Glucose 131 mg/dL (74-99); Non-African American GFR(CKD) 33 (>60 ml/min/1.73 sqM); Potassium 4.5 mmol/L (3.5-5.1); Sodium 136 mmol/L (137-145); Total Bilirubin 1.2 mg/dL (0.2-1.3); Total Protein 8.1 g/dL (6.3-8.2)
[2023-01-16] MEDS ORDERED: ONDANSETRON 4 MG/2 ML VIAL ONE (09:41)
[2023-01-16] MEDS ORDERED: LACTATED RINGERS 1,000 ML IV ONE ×3 (09:44→14:09)
[2023-01-16] MEDS ORDERED: ONDANSETRON 4 MG/2 ML VIAL IVP ONE (09:57)
[2023-01-16] MEDS ORDERED: DEXAMETHASONE SOD PHOSPHATE 4 MG/ML 1 ML VIAL IVP ONE (09:57)
[2023-01-16] MEDS ORDERED: HEPARIN SODIUM,PORCINE/PF 5,000 UNIT/0.5 ML SYRINGE SQ ONE (10:12)
[2023-01-16] MEDS: LACTATED RINGERS 1,000 ML IV ONE ×5 (12:30→15:59)
[2023-01-16] MEDS ORDERED: ONDANSETRON 4 MG/2 ML VIAL IVP PRN (12:44)
[2023-01-16] MEDS ORDERED: METOCLOPRAMIDE 5 MG/ML 2 ML VIAL IVP PRN (12:44)
[2023-01-16] MEDS ORDERED: KETOROLAC 15 MG/ML 1 ML VIAL IVP PRN (12:44)
--- NOTE | 2023-01-16 12:44 | P.OP ---
Date of Procedure: 01/16/23 Preoperative Diagnosis: Left colon polyp Postoperative Diagnosis: Defer to pathology Procedure(s) Performed: Takedown of splenic flexure Left colectomy Partial omentectomy Anesthesia: CECILIA Surgeon: Maynor Snowden Estimated Blood Loss (ml): 35 Pathology: other (Left colon, omentum) Condition: stable Disposition: PACU Description of Procedure: The patient's placed on the operative table in supine position. He received general endotracheal tube anesthesia. His abdomen was prepped and draped usual fashion. The patient had been placed in dorsal lithotomy position. The abdomen was entered through a midline incision. The patient had significant amount obesity. The omentum was quite large. The left colon was then visualized after the Bookwalter retractors placed a wound. The left colon was mobilized. The tattoo ink spot was at the hepatic flexure. At this point the hepatic flexure was taken down with electrocautery, sharp dissection and the Enseal device. Once the hepatic flexure was mobilized. The colon had the omentum off of the transverse colon dissected free. This was divided with the Enseal device sent to pathology. The colon was then transected approximately distally. The mesentery the colon was then divided with the Enseal device. A [id number] functional end-to-end staple anastomosis and draped using the BRAVO and TA stapler. 3-0 GI silk suture was uses a crotch stitch. The abdomen was irrigated there is no bleeding seen. The fascia was then brought together using looped #1 PDS suture. Skin was closed dany. The Pro Vena wound system was placed on top of the closed dany skin. Patient top she will was sent to recovery room stable condition.
[2023-01-16] MEDS ORDERED: HYDROmorphone 0.5 MG/0.5 ML SYRINGE IVP ONE ×3 (13:07→13:45)
[2023-01-16] MEDS ORDERED: hydrALAZINE HCL 20 MG/ML 1 ML VIAL IVP ONE ×2 (13:29→13:37)
[2023-01-16 14:53] LABS: Glucose,Whole Blood 193 mg/dL (70-110)
[2023-01-16] MEDS: D5-0.45% NACL WITH KCL 20MEQ/L 1,000 ML IV SCH (17:07)
[2023-01-16] MEDS: HYDROmorphone 1 MG/ML 1 ML SYRINGE IVP PRN ×2 (17:07→21:55)
[2023-01-16] MEDS: HEPARIN SODIUM,PORCINE 5,000 UNIT/ML 1 ML VIAL SQ SCH (17:07)
[2023-01-16] MEDS ORDERED: BUTALB/APAP/CAFF 50-325-40MG TAB PO PRN (17:26)
[2023-01-16] MEDS ORDERED: SYMBICORT 160-4.5 MCG INHALER INHALATION PRN (17:26)
[2023-01-16] MEDS ORDERED: DEXTROSE 50% SYRINGE 50 ML IVP PRN ×2 (18:04)
--- NOTE | 2023-01-16 18:10 | P.CONS ---
History of Present Illness - Reason for Consult Consult date: 01/16/23 - History of Present Illness 72-year-old male with PMH of colonic polyp, CAD, hypertension, dyslipidemia, BPH, smoker, anxiety, CKD presents to [facility] for elective surgery. He underwent takedown of splenic flexure, left colectomy, partial omentectomy with Dr. Snowden on 01/16. [facility] has been consulted for medical management of this patient. Patient reports generalized abdominal pain only with movement. He denies any nausea or vomiting. He has no complaints at this time. BP is 147/58: Pulse of 91, respiratory rate of 16, 93% on 2 L nasal cannula. CMP shows sodium of 136, bicarb of 21, creatinine of 1.99, glucose 131. Urinary catheter in place. Estimated blood loss is 150 cc. Pertinent positives and negatives as discussed in HPI, a complete review of systems was performed and all other systems are negative. General: non toxic, mild distress, appears at stated age Derm: warm, dry Head: atraumatic, normocephalic, symmetric Eyes: EOMI, no lid lag, anicteric sclera Mouth: no lip lesion, mucus membranes moist Cardiovascular: S1S2 tachycardic, no murmur Lungs: CTA bilateral, no rhonchi, no rales , no accessory muscle use Ext: no gross muscle atrophy, no edema, no contractures Neuro: no focal neuro deficits Psych: Alert, oriented, appropriate affect Acute hypoxic respiratory failure CAD Hypertension Dyslipidemia BPH Smoker Anxiety CKD Based on my assessment of this patient, this patient meets a moderate complexity level of care. Patient has a chronic diagnosis as below: Acute hypoxic respiratory failure: Likely related to anesthesia. Wean supplemental O2. Incentive spirometry. CAD: Restart Plavix 75 mg PO QD when OK with Surgery. Lipitor 80 mg PO QHS. Ate nolol 50 mg PO QD. Hypertension: Antihypertensive medication as above. Dyslipidemia: Lipitor as above. BPH: Doxazosin 2 mg PO QHS. Smoker: Patient encouraged to quit. Anxiety: Ativan 2 mg PO BID PRN. CKD: Appears at baseline. Insulin sliding scale with accuchecks ACHS and hypoglycemic precautions. SCDs for DVT prophylaxis. FULL CODE. I have reviewed the following client support consultant notes: Operative note. I have reviewed the results of the following tests: CMP. I have ordered the following tests: Agree with CBC and BMP. A1c. I have discussed the care of this patient with the following independent historian: I have independently interpreted the following test below: I have discussed the management of this patient with the following physician: Past Medical History Past Medical History: Chest Pain / Angina, COPD, Diabetes Mellitus, Hyperlipidemia, Hypertension, Myocardial Infarction ([place]), Prostate Disorder Additional Past Medical History / Comment(s): arrhythmia, seizures as child, BPH, migraines, abdominal hernia,cysts on kidneys, hx. colon polyps, borderline diabetes Last Myocardial Infarction Date:: 2016 History of Any Multi-Drug Resistant Organisms: None Reported Past Surgical History: Cholecystectomy, Heart Catheterization With Stent, T onsillectomy Additional Past Surgical History / Comment(s): COLONOSCOPY Past Anesthesia/Blood Transfusion Reactions: No Reported Reaction Date of Last Stent Placement:: 2016 Smoking Status: Current some day smoker - Past Family History Father Family Medical History: Cancer Mother Family Medical History: Cancer Medications and Allergies Home Medications Medication Instructions Recorded Confirmed Type Doxazosin Mesylate 2 mg PO HS 04/22/14 01/15/23 History LORazepam [Ativan] 2 mg PO BID PRN 04/22/14 01/16/23 History Budesonide-Formot 160-4.5 Mcg 2 puff INHALATION RT-BID PRN 10/02/16 01/15/23 History [Symbicort 160-4.5 Mcg Inhaler] Atorvastatin [Lipitor] 80 mg PO HS #30 tab 10/05/16 01/15/23 Rx Clopidogrel [Plavix] 75 mg PO QAM 12/31/19 01/15/23 History atenoloL [Tenormin] 50 mg PO QAM 12/31/19 01/15/23 History Butalb/APAP/Caff 50-325-40Mg 1 tab PO DIRECTED PRN 08/30/20 01/15/23 History [Fioricet 50-325-40] Peg 3350 (236 gm/Btl) + Lytes 4,000 ml PO DIRECTED #1 each 01/15/23 Rx [Golytely Lavage] Allergies Allergy/AdvReac Type Severity Reaction Status Date / Time ciprofloxacin Allergy Unknown Unknown Verified 01/16/23 09:01 Sulfa (Sulfonamide AdvReac Severe Seizure Verified 01/16/23 09:01 Antibiotics) tramadol [From Ultram] AdvReac Unknown Nausea Verified 01/16/23 09:01 Physical Exam Vitals: Vital Signs Temp Pulse Resp BP Pulse Ox 01/16/23 15:01 91 16 147/58 93 L 01/16/23 14:48 90 14 167/73 94 L 01/16/23 14:33 83 14 145/67 95 01/16/23 14:18 82 12 146/67 95 01/16/23 14:03 89 14 141/65 93 L 01/16/23 13:48 79 14 140/56 94 L 01/16/23 13:33 74 14 173/74 97 01/16/23 13:18 82 18 184/84 92 L 01/16/23 13:03 87 20 202/84 97 01/16/23 12:48 98.2 F 98 20 136/74 97 01/16/23 12:44 97.7 F 103 H 17 154/71 95 01/16/23 09:14 97.3 F L 74 16 153/72 97 Intake and Output 01/16/23 01/16/23 01/16/23 06:59 14:59 22:59 Intake Total 2150 Output Total 300 Balance 1850 Intake: IV 2150 Output: Urine 150 Estimated Blood Loss 150 Other: Weight 92.5 kg 92.5 kg Results CBC & Chem 7: 01/16/23 09:15 Labs: Abnormal Lab Results - Last 24 Hours (Table) 01/16/23 01/16/23 01/16/23 Range/Units 09:15 09:23 14:50 Sodium 136 L (137-145) mmol/L Carbon Dioxide 21 L (22-30) mmol/L Creatinine 1.99 H (0.66-1.25) mg/dL Glucose 131 H (74-99) mg/dL POC Glucose (mg/dL) 138 H 193 H (70-110) mg/dL
[2023-01-16 20:17] LABS: Glucose,Whole Blood 140 mg/dL (70-110)
[2023-01-16] MEDS: INSULIN ASPART (NovoLOG) 100 UNIT/ML VIAL SQ SCH (21:18)
[2023-01-16] MEDS: ALVIMOPAN 12 MG CAPSULE PO SCH (21:18)
[2023-01-16] MEDS: DOXAZOSIN 2 MG TAB PO SCH (21:24)
[2023-01-16] MEDS: LORazepam 1 MG TAB PO PRN (21:55)
[2023-01-17] MEDS: HEPARIN SODIUM,PORCINE 5,000 UNIT/ML 1 ML VIAL SQ SCH ×4 (00:36→23:44)
[2023-01-17] MEDS: D5-0.45% NACL WITH KCL 20MEQ/L 1,000 ML IV SCH ×3 (00:36→17:29)
[2023-01-17] MEDS: HYDROmorphone 1 MG/ML 1 ML SYRINGE IVP PRN ×5 (05:01→20:34)
[2023-01-17 05:49] LABS: Glucose,Whole Blood 149 mg/dL (70-110)
[2023-01-17] MEDS: INSULIN ASPART (NovoLOG) 100 UNIT/ML VIAL SQ SCH ×4 (05:56→21:14)
[2023-01-17] MEDS: ALVIMOPAN 12 MG CAPSULE PO SCH ×2 (10:00→21:14)
[2023-01-17] MEDS: atenoloL 50 MG TAB PO SCH (10:00)
[2023-01-17] MEDS: DOXAZOSIN 2 MG TAB PO SCH (10:29)
[2023-01-17 11:00] LABS: Basophils # (A) 0.02 X 10*3/uL (0.00-0.10); Basophils % (A) 0.2 %; Eosinophils # (A) 0.01 X 10*3/uL (0.04-0.35); Eosinophils % (A) 0.1 %; HCT 39.4 % (39.6-50.0); HGB 12.9 d/dL (13.0-17.0); Lymphocytes # (A) 1.57 X 10*3/uL (0.90-5.00); Lymphocytes % (A) 17.8 %; MCH 28.8 pg (27.0-32.0); MCHC 32.7 d/dL (32.0-37.0); MCV 87.9 FL (80.0-97.0); Mean Platelet Volume 9.4 FL (9.5-12.2); Monocytes # (A) 0.54 X 10*3/uL (0.20-1.00); Monocytes % (A) 6.1 %; NRBC Per 100 WBC 0 X 10*3/uL (0.00-0.01); Neutrophils # (A) 6.61 X 10*3/uL (1.80-7.70); Neutrophils % (A) 75.1 %; Platelet Count 183 X 10*3/uL (140-440); RBC 4.48 X 10*6/uL (4.40-5.60); WBC 8.81 X 10*3/uL (4.50-10.00)
[2023-01-17 11:27] LABS: Glucose,Whole Blood 166 mg/dL (70-110)
[2023-01-17 11:39] LABS: BUN/Creat Ratio 9.65 Ratio (12.00-20.00); Blood Urea Nitrogen 19.3 mg/dL (9.0-27.0); Calcium 7.9 mg/dL (8.7-10.3); Carbon Dioxide 22.6 mmol/L (21.6-31.8); Chloride 102 mmol/L (96-109); Glucose 138 mg/dL (70-110); Potassium 4.6 mmol/L (3.5-5.5); Sodium 133 mmol/L (135-145)
--- NOTE | 2023-01-17 12:29 | P.PN ---
Subjective Progress Note Date: 01/17/23 CHIEF COMPLAINT: Left colon polyp HISTORY OF PRESENT ILLNESS: Patient postop day #1 status post left colectomy, takedown of splenic flexure and partial omentectomy. Patient lying in bed comfortably. Reports pain is controlled. Denies any nausea or vomiting. He denies any flatus. He did have a low-grade temp of 100.3 last night. Mild tachycardia. Patient is having some mild wheezing. Medicine service has ordered nebulizer treatments. WBC 8.81 Hgb 12.9 PHYSICAL EXAM: VITAL SIGNS: Reviewed. GENERAL: Well-developed in no acute distress. ABDOMEN: Soft. Mildly distended. Prevana wound vac intact NEUROLOGIC: Alert and oriented. Cranial nerves II through XII grossly intact. ASSESSMENT: 1. Left colon polyp PLAN: -Continue clear liquid diet -Continue IV fluids -Encouraged patient to use incentive spirometer -Encouraged patient to increase activity level -Discontinue Peters catheter today -GI prophylaxis Pepcid and DVT prophylaxis subcu heparin and SCDs Physician Correctional Probation Officer note has been reviewed by physician. Signing provider agrees with the documented findings, assessment, and plan of care. Objective - Vital Signs Vital signs: Vital Signs Temp 99.1 F 01/17/23 01:22 Pulse 103 H 01/17/23 01:22 Resp 18 01/17/23 01:22 BP 124/68 01/17/23 01:22 Pulse Ox 92 L 01/17/23 01:22 FiO2 Intake & Output 01/16/23 01/17/23 01/17/23 18:59 06:59 18:59 Intake Total 2150 Output Total 300 1100 Balance 1850 -1100 Weight 92.5 kg Intake: IV 2150 Output: Urine 150 1100 Estimated Blood Loss 150 Other: Voiding Method Indwelling Catheter Indwelling Catheter Indwelling Catheter # Voids 0 - Labs CBC & Chem 7: 01/17/23 06:50 01/17/23 06:50 Labs: Abnormal Lab Results - Last 24 Hours (Table) 01/16/23 01/16/23 01/17/23 Range/Units 14:50 20:15 05:47 Hgb (13.0-17.0) d/dL Hct (39.6-50.0) % RDW (11.5-14.5) % MPV (9.5-12.2) FL Eosinophils # (0.04-0.35) X 10*3/uL Sodium (135-145) mmol/L Creatinine (0.6-1.5) mg/dL Est GFR (CKD-EPI) (>=60) BUN/Creatinine Ratio (12.00-20.00) Ratio Glucose (70-110) mg/dL POC Glucose (mg/dL) 193 H 140 H 149 H (70-110) mg/dL Hemoglobin A1c (<=6.0) % Calcium (8.7-10.3) mg/dL 01/17/23 01/17/23 01/17/23 Range/Units 06:50 06:50 06:50 Hgb 12.9 L (13.0-17.0) d/dL Hct 39.4 L (39.6-50.0) % RDW 15.0 H (11.5-14.5) % MPV 9.4 L (9.5-12.2) FL Eosinophils # 0.01 L (0.04-0.35) X 10*3/uL Sodium 133 L (135-145) mmol/L Creatinine 2.0 H (0.6-1.5) mg/dL Est GFR (CKD-EPI) 35 L (>=60) BUN/Creatinine Ratio 9.65 L (12.00-20.00) Ratio Glucose 138 H (70-110) mg/dL POC Glucose (mg/dL) (70-110) mg/dL Hemoglobin A1c 6.7 H (<=6.0) % Calcium 7.9 L (8.7-10.3) mg/dL 01/17/23 Range/Units 11:26 Hgb (13.0-17.0) d/dL Hct (39.6-50.0) % RDW (11.5-14.5) % MPV (9.5-12.2) FL Eosinophils # (0.04-0.35) X 10*3/uL Sodium (135-145) mmol/L Creatinine (0.6-1.5) mg/dL Est GFR (CKD-EPI) (>=60) BUN/Creatinine Ratio (12.00-20.00) Ratio Glucose (70-110) mg/dL POC Glucose (mg/dL) 166 H (70-110) mg/dL Hemoglobin A1c (<=6.0) % Calcium (8.7-10.3) mg/dL
[2023-01-17] MEDS ORDERED: FAMOTIDINE 20 MG TAB PO SCH (12:30)
--- NOTE | 2023-01-17 14:22 | P.PN ---
Subjective Progress Note Date: 01/17/23 72-year-old male with PMH of colonic polyp, CAD, hypertension, dyslipidemia, BPH, smoker, anxiety, CKD presents to [facility] for elective surgery. He underwent takedown of splenic flexure, left colectomy, partial omentectomy with Dr. Snowden on 01/16. [facility] has been consulted for medical management of this patient. Patient reports generalized abdominal pain only with movement. He denies any nausea or vomiting. He has no complaints at this time. BP is 147/58: Pulse of 91, respiratory rate of 16, 93% on 2 L nasal cannula. CMP shows sodium of 136, bicarb of 21, creatinine of 1.99, glucose 131. Urinary catheter in place. Estimated blood loss is 150 cc. 01/17 Patient was seen and examined. He reports moderate abdominal pain at the site of incision. No bowel movement or passing gas. Tolerating CLD well. CBC shows Hg 12.9. BMP shows Na 133, Cr 2, glucose 138. A1c 6.7. Ca 7.9. General: non toxic, mild distress, appears at stated age Derm: warm, dry Head: atraumatic, normocephalic, symmetric Eyes: EOMI, no lid lag, anicteric sclera Mouth: no lip lesion, mucus membranes moist Cardiovascular: S1S2 tachycardic, no murmur Lungs: CTA bilateral, no rhonchi, no rales , no accessory muscle use Abd: Midline incision dressing c/d/i. slightly distended. Decreased BS Ext: no gross muscle atrophy, no edema, no contractures Neuro: no focal neuro deficits Psych: Alert, oriented, appropriate affect CAD Hypertension Dyslipidemia BPH Smoker Anxiety CKD Resolved: AHRF Based on my assessment of this patient, this patient meets a moderate complexity level of care. Patient has a chronic diagnosis as below: CAD: Restart Plavix 75 mg PO QD when OK with Surgery. Lipitor 80 mg PO QHS. Atenolol 50 mg PO QD. Hypertension: Antihypertensive medication as above. Dyslipidemia: Lipitor as above. BPH: Doxazosin 2 mg PO QHS. Smoker: Patient encouraged to quit. Anxiety: Ativan 2 mg PO BID PRN. CKD: Appears at baseline. Insulin sliding scale with accuchecks ACHS and hypoglycemic precautions. SCDs for DVT prophylaxis. FULL CODE. I have reviewed the following interventional sale consultant notes: Surgery note. I have reviewed the results of the following tests: CBC, BMP, a1C I have ordered the following tests: I have discussed the care of this patient with the following independent histor sebas: I have independently interpreted the following test below: I have discussed the management of this patient with the following physician: Objective - Vital Signs Vital signs: Vital Signs Temp 98.4 F 01/17/23 13:13 Pulse 88 01/17/23 13:13 Resp 20 01/17/23 13:13 BP 147/88 01/17/23 13:13 Pulse Ox 92 L 01/17/23 07:02 FiO2 Intake & Output 01/16/23 01/17/23 01/17/23 18:59 06:59 18:59 Intake Total 2150 Output Total 300 1100 Balance 1850 -1100 Weight 92.5 kg Intake: IV 2150 Output: Urine 150 1100 Estimated Blood Loss 150 Other: Voiding Method Indwelling Catheter Indwelling Catheter Toilet # Voids 0 - Labs CBC & Chem 7: 01/17/23 06:50 01/17/23 06:50 Labs: Abnormal Lab Results - Last 24 Hours (Table) 01/16/23 01/16/23 01/17/23 Range/Units 14:50 20:15 05:47 Hgb (13.0-17.0) d/dL Hct (39.6-50.0) % RDW (11.5-14.5) % MPV (9.5-12.2) FL Eosinophils # (0.04-0.35) X 10*3/uL Sodium (135-145) mmol/L Creatinine (0.6-1.5) mg/dL Est GFR (CKD-EPI) (>=60) BUN/Creatinine Ratio (12.00-20.00) Ratio Glucose (70-110) mg/dL POC Glucose (mg/dL) 193 H 140 H 149 H (70-110) mg/dL Hemoglobin A1c (<=6.0) % Calcium (8.7-10.3) mg/dL 01/17/23 01/17/23 01/17/23 Range/Units 06:50 06:50 06:50 Hgb 12.9 L (13.0-17.0) d/dL Hct 39.4 L (39.6-50.0) % RDW 15.0 H (11.5-14.5) % MPV 9.4 L (9.5-12.2) FL Eosinophils # 0.01 L (0.04-0.35) X 10*3/uL Sodium 133 L (135-145) mmol/L Creatinine 2.0 H (0.6-1.5) mg/dL Est GFR (CKD-EPI) 35 L (>=60) BUN/Creatinine Ratio 9.65 L (12.00-20.00) Ratio Glucose 138 H (70-110) mg/dL POC Glucose (mg/dL) (70-110) mg/dL Hemoglobin A1c 6.7 H (<=6.0) % Calcium 7.9 L (8.7-10.3) mg/dL 01/17/23 Range/Units 11:26 Hgb (13.0-17.0) d/dL Hct (39.6-50.0) % RDW (11.5-14.5) % MPV (9.5-12.2) FL Eosinophils # (0.04-0.35) X 10*3/uL Sodium (135-145) mmol/L Creatinine (0.6-1.5) mg/dL Est GFR (CKD-EPI) (>=60) BUN/Creatinine Ratio (12.00-20.00) Ratio Glucose (70-110) mg/dL POC Glucose (mg/dL) 166 H (70-110) mg/dL Hemoglobin A1c (<=6.0) % Calcium (8.7-10.3) mg/dL
[2023-01-17] MEDS: IPRATROPIUM-ALBUTEROL 3 ML NEB INHALATION PRN ×2 (15:06→20:10)
[2023-01-17 17:00] LABS: Glucose,Whole Blood 141 mg/dL (70-110)
--- NOTE | 2023-01-17 17:20 | XR ---
EXAMINATION TYPE: XR chest 1V DATE OF EXAM: 01/17/2023 COMPARISON: 11/18/2020 INDICATION: Cough TECHNIQUE: Single frontal view of the chest is obtained. FINDINGS: The heart size is probably prominent. The pulmonary vasculature is normal. Right lower lobe infiltrate is present. Correlate for pneumonia. Atelectasis could be considered. IMPRESSION: 1. Right lower lobe medial atelectasis or pneumonia. Follow-up is recommended. 2. Mild cardiomegaly
[2023-01-17 21:09] LABS: Glucose,Whole Blood 163 mg/dL (70-110)
[2023-01-17] MEDS: LORazepam 1 MG TAB PO PRN (21:14)
[2023-01-18] MEDS: D5-0.45% NACL WITH KCL 20MEQ/L 1,000 ML IV SCH ×4 (01:22→20:42)
[2023-01-18] MEDS: IPRATROPIUM-ALBUTEROL 3 ML NEB INHALATION PRN ×2 (02:40→08:49)
[2023-01-18] MEDS: HYDROmorphone 1 MG/ML 1 ML SYRINGE IVP PRN ×7 (03:46→23:55)
[2023-01-18 06:19] LABS: Glucose,Whole Blood 165 mg/dL (70-110)
[2023-01-18] MEDS: INSULIN ASPART (NovoLOG) 100 UNIT/ML VIAL SQ SCH ×4 (06:42→20:58)
[2023-01-18] MEDS: HEPARIN SODIUM,PORCINE 5,000 UNIT/ML 1 ML VIAL SQ SCH ×3 (08:25→23:56)
[2023-01-18 09:01] LABS: HGB 12.3 gm/dL (13.0-17.5); MCH 28.6 pg (25.0-35.0); MCHC 32.3 g/dL (31.0-37.0); MCV 88.5 fL (80.0-100.0); Mean Platelet Volume 6.9; Platelet Count 176 k/uL (150-450); RBC 4.29 m/uL (4.30-5.90); RDW 15.7 % (11.5-15.5); WBC 8.3 k/uL (3.8-10.6)
[2023-01-18 09:12] LABS: African American GFR (CKD) 46 (>60 ml/min/1.73 sqM); Anion Gap 3 mmol/L; Blood Urea Nitrogen 14 mg/dL (9-20); Calcium 7.9 mg/dL (8.4-10.2); Carbon Dioxide 27 mmol/L (22-30); Chloride 104 mmol/L (98-107); Glucose 129 mg/dL (74-99); Non-African American GFR(CKD) 40 (>60 ml/min/1.73 sqM); Potassium 4.8 mmol/L (3.5-5.1); Sodium 134 mmol/L (137-145)
[2023-01-18] MEDS: ALVIMOPAN 12 MG CAPSULE PO SCH ×2 (10:40→20:43)
[2023-01-18] MEDS: atenoloL 50 MG TAB PO SCH (10:41)
[2023-01-18] MEDS: FAMOTIDINE 20 MG TAB PO SCH (10:43)
[2023-01-18 11:15] LABS: Glucose,Whole Blood 156 mg/dL (70-110)
[2023-01-18] MEDS: IPRATROPIUM-ALBUTEROL 3 ML NEB INHALATION SCH ×3 (12:29→19:51)
--- NOTE | 2023-01-18 13:02 | P.PN ---
Subjective Progress Note Date: 01/18/23 CHIEF COMPLAINT: Left colon polyp HISTORY OF PRESENT ILLNESS: Patient postop day #2 status post left colectomy, takedown of splenic flexure and partial omentectomy. Patient reports his pain is controlled. No flatus. Denies any nausea or vomiting. Chest x-ray had showed atelectasis versus pneumonia. Afebrile. Mildly tachycardic heart rate 101. Patient does have evidence of tremors and reports that he has tremors at home. Reports no alcohol use. Patient does have shortness of breath and has be en using nebulizer treatments. WBC 8.3 Hgb 12.3 platelets 176 PHYSICAL EXAM: VITAL SIGNS: Reviewed. GENERAL: Well-developed in no acute distress. ABDOMEN: Soft. Mildly distended. Prevana wound vac intact NEUROLOGIC: Alert and oriented. Cranial nerves II through XII grossly intact. ASSESSMENT: 1. Left colon polyp PLAN: -Continue clear liquid diet -Continue IV fluids -Consult PT OT -We'll have nursing staff shower patient today -Changes nebulizer treatments to scheduled -Encouraged patient to use incentive spirometer -Encouraged patient to increase activity level -GI prophylaxis Pepcid and DVT prophylaxis subcu heparin and SCDs Physician Termite Inspector note has been reviewed by physician. Signing provider agrees with the documented findings, assessment, and plan of care. Objective - Vital Signs Vital signs: Vital Signs Temp 98.3 F 01/18/23 07:53 Pulse 100 01/18/23 12:39 Resp 18 01/18/23 07:53 BP 171/79 01/18/23 07:53 Pulse Ox 96 01/18/23 07:53 FiO2 Intake & Output 01/17/23 01/18/23 01/18/23 18:59 06:59 18:59 Output Total 100 Balance -100 Output: Urine 100 Other: Voiding Method Toilet Urinal # Voids 2 - Labs CBC & Chem 7: 01/18/23 08:40 01/18/23 08:40 Labs: Abnormal Lab Results - Last 24 Hours (Table) 01/17/23 01/17/23 01/18/23 Range/Units 16:59 21:08 06:18 RBC (4.30-5.90) m/uL Hgb (13.0-17.5) gm/dL Hct (39.0-53.0) % RDW (11.5-15.5) % Sodium (137-145) mmol/L Creatinine (0.66-1.25) mg/dL Glucose (74-99) mg/dL POC Glucose (mg/dL) 141 H 163 H 165 H (70-110) mg/dL Calcium (8.4-10.2) mg/dL 01/18/23 01/18/23 01/18/23 Range/Units 08:40 08:40 11:13 RBC 4.29 L (4.30-5.90) m/uL Hgb 12.3 L (13.0-17.5) gm/dL Hct 38.0 L (39.0-53.0) % RDW 15.7 H (11.5-15.5) % Sodium 134 L (137-145) mmol/L Creatinine 1.71 H (0.66-1.25) mg/dL Glucose 129 H (74-99) mg/dL POC Glucose (mg/dL) 156 H (70-110) mg/dL Calcium 7.9 L (8.4-10.2) mg/dL
--- NOTE | 2023-01-18 14:20 | P.PN ---
Subjective Progress Note Date: 01/18/23 72-year-old male with PMH of colonic polyp, CAD, hypertension, dyslipidemia, BPH, smoker, anxiety, CKD presents to [facility] for elective surgery. He underwent takedown of splenic flexure, left colectomy, partial omentectomy with Dr. Snowden on 01/16. [facility] has been consulted for medical management of this patient. Patient reports generalized abdominal pain only with movement. He denies any nausea or vomiting. He has no complaints at this time. BP is 147/58: Pulse of 91, respiratory rate of 16, 93% on 2 L nasal cannula. CMP shows sodium of 136, bicarb of 21, creatinine of 1.99, glucose 131. Urinary catheter in place. Estimated blood loss is 150 cc. 01/17 Patient was seen and examined. He reports moderate abdominal pain at the site of incision. No bowel movement or passing gas. Tolerating CLD well. CBC shows Hg 12.9. BMP shows Na 133, Cr 2, glucose 138. A1c 6.7. Ca 7.9. 01/18 Patient was seen and examined. He appears short of breath. He continues to report uncontrolled pain at the site of incision. No bowel movement, not passing gas. CXR done yesterday shows atelectasis of the RML. CBC shows Hg 12.3. BMP shows Na 134, Cr 1.71, glucose 129 and Ca 7.9. General: non toxic, mild distress, appears at stated age Derm: warm, dry Head: atraumatic, normocephalic, symmetric Eyes: EOMI, no lid lag, anicteric sclera Mouth: no lip lesion, mucus membranes moist Cardiovascular: S1S2 tachycardic, no murmur Lungs: Decreased BS bilateral, no rhonchi, no rales , no accessory muscle use Abd: Midline incision dressing c/d/i. slightly distended. Decreased BS Ext: no gross muscle atrophy, no edema, no contractures Neuro: no focal neuro deficits Psych: Alert, oriented, appropriate affect Acute hypoxic respiratory failure, likely secondary to COPD exacerbation and at electasis CAD Hypertension Dyslipidemia BPH Smoker Anxiety CKD Resolved: AHRF Based on my assessment of this patient, this patient meets a high complexity level of care. Patient has a chronic diagnosis as below: Acute hypoxic respiratory failure, likely secondary to COPD exacerbation and atelectasis: Incentive spirometer. Symbicort. DuoNeb QID scheduled. CAD: Restart Plavix 75 mg PO QD when OK with Surgery. Lipitor 80 mg PO QHS. Atenolol 50 mg PO QD. Hypertension: Antihypertensive medication as above. Dyslipidemia: Lipitor as above. BPH: Doxazosin 2 mg PO QHS. Smoker: Patient encouraged to quit. Anxiety: Ativan 2 mg PO BID PRN. CKD: Appears at baseline. Insulin sliding scale with accuchecks ACHS and hypoglycemic precautions. SCDs for DVT prophylaxis. FULL CODE. I have reviewed the following funeral pre need consultant notes: Surgery note. I have reviewed the results of the following tests: CBC, BMP I have ordered the following tests: I have discussed the care of this patient with the following independent historian: I have independently interpreted the following test below: CXR I have discussed the management of this patient with the following physician: Objective - Vital Signs Vital signs: Vital Signs Temp 97.6 F 01/18/23 13:42 Pulse 100 01/18/23 13:42 Resp 18 01/18/23 13:42 BP 165/72 01/18/23 13:42 Pulse Ox 96 01/18/23 13:42 FiO2 Intake & Output 01/17/23 01/18/23 01/18/23 18:59 06:59 18:59 Output Total 100 Balance -100 Output: Urine 100 Other: Voiding Method Toilet Urinal # Voids 2 - Labs CBC & Chem 7: 01/18/23 08:40 01/18/23 08:40 Labs: Abnormal Lab Results - Last 24 Hours (Table) 01/17/23 01/17/23 01/18/23 Range/Units 16:59 21:08 06:18 RBC (4.30-5.90) m/uL Hgb (13.0-17.5) gm/dL Hct (39.0-53.0) % RDW (11.5-15.5) % Sodium (137-145) mmol/L Creatinine (0.66-1.25) mg/dL Glucose (74-99) mg/dL POC Glucose (mg/dL) 141 H 163 H 165 H (70-110) mg/dL Calcium (8.4-10.2) mg/dL 01/18/23 01/18/23 01/18/23 Range/Units 08:40 08:40 11:13 RBC 4.29 L (4.30-5.90) m/uL Hgb 12.3 L (13.0-17.5) gm/dL Hct 38.0 L (39.0-53.0) % RDW 15.7 H (11.5-15.5) % Sodium 134 L (137-145) mmol/L Creatinine 1.71 H (0.66-1.25) mg/dL Glucose 129 H (74-99) mg/dL POC Glucose (mg/dL) 156 H (70-110) mg/dL Calcium 7.9 L (8.4-10.2) mg/dL
[2023-01-18 16:43] LABS: Glucose,Whole Blood 160 mg/dL (70-110)
[2023-01-18] MEDS: SYMBICORT 160-4.5 MCG INHALER INHALATION SCH (19:51)
[2023-01-18] MEDS: DOXAZOSIN 2 MG TAB PO SCH (20:45)
[2023-01-18 20:49] LABS: Glucose,Whole Blood 121 mg/dL (70-110)
[2023-01-18] MEDS: LORazepam 1 MG TAB PO PRN (23:57)
[2023-01-19] MEDS: HYDROmorphone 1 MG/ML 1 ML SYRINGE IVP PRN ×3 (04:08→13:39)
[2023-01-19 05:57] LABS: Glucose,Whole Blood 148 mg/dL (70-110)
[2023-01-19] MEDS: INSULIN ASPART (NovoLOG) 100 UNIT/ML VIAL SQ SCH ×4 (06:29→21:38)
[2023-01-19] MEDS: D5-0.45% NACL WITH KCL 20MEQ/L 1,000 ML IV SCH ×2 (06:31→14:47)
[2023-01-19] MEDS: SYMBICORT 160-4.5 MCG INHALER INHALATION SCH ×2 (08:14→20:26)
[2023-01-19] MEDS: IPRATROPIUM-ALBUTEROL 3 ML NEB INHALATION SCH ×4 (08:14→20:26)
[2023-01-19] MEDS: ALVIMOPAN 12 MG CAPSULE PO SCH ×2 (09:52→22:19)
[2023-01-19] MEDS: FAMOTIDINE 20 MG TAB PO SCH (09:52)
[2023-01-19] MEDS: atenoloL 50 MG TAB PO SCH (09:52)
[2023-01-19] MEDS: HEPARIN SODIUM,PORCINE 5,000 UNIT/ML 1 ML VIAL SQ SCH ×2 (09:52→16:45)
[2023-01-19 11:39] LABS: Glucose,Whole Blood 172 mg/dL (70-110)
--- NOTE | 2023-01-19 13:58 | P.PN ---
Subjective Progress Note Date: 01/19/23 72-year-old male with PMH of colonic polyp, CAD, hypertension, dyslipidemia, BPH, smoker, anxiety, CKD presents to [facility] for elective surgery. He underwent takedown of splenic flexure, left colectomy, partial omentectomy with Dr. Snowden on 01/16. [facility] has been consulted for medical management of this patient. Patient reports generalized abdominal pain only with movement. He denies any nausea or vomiting. He has no complaints at this time. BP is 147/58: Pulse of 91, respiratory rate of 16, 93% on 2 L nasal cannula. CMP shows sodium of 136, bicarb of 21, creatinine of 1.99, glucose 131. Urinary catheter in place. Estimated blood loss is 150 cc. 01/17 Patient was seen and examined. He reports moderate abdominal pain at the site of incision. No bowel movement or passing gas. Tolerating CLD well. CBC shows Hg 12.9. BMP shows Na 133, Cr 2, glucose 138. A1c 6.7. Ca 7.9. 01/18 Patient was seen and examined. He appears short of breath. He continues to report uncontrolled pain at the site of incision. No bowel movement, not passing gas. CXR done yesterday shows atelectasis of the RML. CBC shows Hg 12.3. BMP shows Na 134, Cr 1.71, glucose 129 and Ca 7.9. 01/19 Patient was seen and examined. Currently on 4L NC. He reports improving pain in his abdomen. Does not appear SOB. No new labs done today. General: non toxic, mild distress, appears at stated age Derm: warm, dry Head: atraumatic, normocephalic, symmetric Eyes: EOMI, no lid lag, anicteric sclera Mouth: no lip lesion, mucus membranes moist Cardiovascular: S1S2 tachycardic, no murmur Lungs: Decreased BS bilateral, no rhonchi, no rales , no accessory muscle use Abd: Midline incision dressing c/d/i. slightly distended. + BS Ext: no gross muscle atrophy, no edema, no contractures Neuro: no focal neuro deficits Psych: Alert, oriented, appropriate affect Acute hypoxic respiratory failure, likely secondary to COPD exacerbation and atelectasis CAD Hypertension Dyslipidemia BPH Smoker Anxiety CKD Resolved: AHRF Based on my assessment of this patient, this patient meets a moderate complexity level of care. Patient has a chronic diagnosis as below: Acute hypoxic respiratory failure, likely secondary to COPD exacerbation and atelectasis: Incentive spirometer. Symbicort. DuoNeb QID scheduled. CAD: Restart Plavix 75 mg PO QD when OK with Surgery. Lipitor 80 mg PO QHS. Atenolol 50 mg PO QD. Hypertension: Antihypertensive medication as above. Dyslipidemia: Lipitor as above. BPH: Doxazosin 2 mg PO QHS. Smoker: Patient encouraged to quit. Anxiety: Ativan 2 mg PO BID PRN. CKD: Appears at baseline. Insulin sliding scale with accuchecks ACHS and hypoglycemic precautions. SCDs for DVT prophylaxis. FULL CODE. I have reviewed the following service delivery management consultant notes: I have reviewed the results of the following tests: I have ordered the following tests: I have discussed the care of this patient with the following independent historian: I have independently interpreted the following test below: I have discussed the management of this patient with the following physician: Objective - Vital Signs Vital signs: Vital Signs Temp 99.2 F 01/19/23 02:00 Pulse 108 H 01/19/23 12:49 Resp 16 01/19/23 02:00 BP 150/77 01/19/23 02:00 Pulse Ox 97 01/19/23 08:18 FiO2 Intake & Output 01/18/23 01/19/23 01/19/23 18:59 06:59 18:59 Output Total 300 Balance -300 Output: Urine 300 Other: Voiding Method Urinal Urinal # Voids 2 - Labs CBC & Chem 7: 01/18/23 08:40 01/18/23 08:40 Labs: Abnormal Lab Results - Last 24 Hours (Table) 01/18/23 01/18/23 01/19/23 Range/Units 16:42 20:47 05:55 POC Glucose (mg/dL) 160 H 121 H 148 H (70-110) mg/dL 01/19/23 Range/Units 11:37 POC Glucose (mg/dL) 172 H (70-110) mg/dL
--- NOTE | 2023-01-19 16:35 | P.PN ---
Subjective Progress Note Date: 01/19/23 CHIEF COMPLAINT: Left colon polyp HISTORY OF PRESENT ILLNESS: Patient postop day #3 status post left colectomy, takedown of splenic flexure and partial omentectomy. Patient does complain of abdominal pain. Does report pain medication helps. No flatus. Denies any nausea or vomiting. Patient reports history of chronic tremors. Denies any alcohol use. He is on 5 L satting at 97%. Does report pain is worse with cough. Chest x-ray had shown evidence of atelectasis versus pneumonia. He was mildly tachycardic. Heart rate improved. Patient more confused today. PHYSICAL EXAM: VITAL SIGNS: Reviewed. GENERAL: Well-developed in no acute distress. ABDOMEN: Soft. Mildly distended. Prevana wound vac intact NEUROLOGIC: Alert and oriented. Cranial nerves II through XII grossly intact. ASSESSMENT: 1. Left colon polyp 2. Atelectasis PLAN: -Continue clear liquid diet -Continue IV fluids -Continue nebulizer treatments -Encouraged patient to increase activity level and to use incentive spirometer. Discussed this with patient's significant other at bedside. -Consult PT OT -Follow up on pathology results -Repeat labs in a.m. -GI prophylaxis Pepcid and DVT prophylaxis subcu heparin and SCDs Physician Company Controller note has been reviewed by physician. Signing provider agrees with the documented findings, assessment, and plan of care. Objective - Vital Signs Vital signs: Vital Signs Temp 99.2 F 01/19/23 02:00 Pulse 106 H 01/19/23 08:29 Resp 16 01/19/23 02:00 BP 150/77 01/19/23 02:00 Pulse Ox 97 01/19/23 08:18 FiO2 Intake & Output 01/18/23 01/19/23 01/19/23 18:59 06:59 18:59 Output Total 300 Balance -300 Output: Urine 300 Other: Voiding Method Urinal Urinal # Voids 2 - Labs CBC & Chem 7: 01/18/23 08:40 01/18/23 08:40 Labs: Abnormal Lab Results - Last 24 Hours (Table) 01/18/23 01/18/23 01/19/23 Range/Units 16:42 20:47 05:55 POC Glucose (mg/dL) 160 H 121 H 148 H (70-110) mg/dL 01/19/23 Range/Units 11:37 POC Glucose (mg/dL) 172 H (70-110) mg/dL
[2023-01-19 16:50] LABS: Glucose,Whole Blood 185 mg/dL (70-110)
[2023-01-19] MEDS: LORazepam 1 MG TAB PO PRN (20:52)
[2023-01-19 21:10] LABS: Glucose,Whole Blood 138 mg/dL (70-110)
[2023-01-19] MEDS: DOXAZOSIN 2 MG TAB PO SCH (22:19)
[2023-01-20] MEDS: HEPARIN SODIUM,PORCINE 5,000 UNIT/ML 1 ML VIAL SQ SCH ×3 (00:45→17:23)
[2023-01-20] MEDS: D5-0.45% NACL WITH KCL 20MEQ/L 1,000 ML IV SCH ×3 (00:45→17:23)
[2023-01-20 06:04] LABS: Glucose,Whole Blood 136 mg/dL (70-110)
[2023-01-20] MEDS: INSULIN ASPART (NovoLOG) 100 UNIT/ML VIAL SQ SCH ×4 (06:15→21:09)
[2023-01-20] MEDS: FAMOTIDINE 20 MG TAB PO SCH (08:16)
[2023-01-20] MEDS: atenoloL 50 MG TAB PO SCH (08:16)
[2023-01-20] MEDS: ALVIMOPAN 12 MG CAPSULE PO SCH ×2 (08:16→21:19)
[2023-01-20] MEDS: SYMBICORT 160-4.5 MCG INHALER INHALATION SCH ×2 (08:40→21:19)
[2023-01-20] MEDS: IPRATROPIUM-ALBUTEROL 3 ML NEB INHALATION SCH ×4 (08:40→21:19)
[2023-01-20 11:23] LABS: Basophils # (A) 0.02 X 10*3/uL (0.00-0.10); Basophils % (A) 0.3 %; Eosinophils # (A) 0.11 X 10*3/uL (0.04-0.35); Eosinophils % (A) 1.4 %; HCT 35.8 % (39.6-50.0); HGB 11.5 d/dL (13.0-17.0); Lymphocytes # (A) 1.12 X 10*3/uL (0.90-5.00); Lymphocytes % (A) 14.5 %; MCH 28.1 pg (27.0-32.0); MCHC 32.1 d/dL (32.0-37.0); MCV 87.5 FL (80.0-97.0); Mean Platelet Volume 9.7 FL (9.5-12.2); Monocytes # (A) 0.48 X 10*3/uL (0.20-1.00); Monocytes % (A) 6.2 %; NRBC Per 100 WBC 0 X 10*3/uL (0.00-0.01); Neutrophils # (A) 5.91 X 10*3/uL (1.80-7.70); Neutrophils % (A) 76.7 %; Platelet Count 179 X 10*3/uL (140-440); RBC 4.09 X 10*6/uL (4.40-5.60); WBC 7.71 X 10*3/uL (4.50-10.00)
[2023-01-20 11:26] LABS: Glucose,Whole Blood 147 mg/dL (70-110)
[2023-01-20 11:40] LABS: BUN/Creat Ratio 5.33 Ratio (12.00-20.00); Blood Urea Nitrogen 9.6 mg/dL (9.0-27.0); Calcium 8.6 mg/dL (8.7-10.3); Carbon Dioxide 22.4 mmol/L (21.6-31.8); Chloride 105 mmol/L (96-109); Glucose 121 mg/dL (70-110); Potassium 4.7 mmol/L (3.5-5.5); Sodium 138 mmol/L (135-145)
--- NOTE | 2023-01-20 12:02 | P.PN ---
Progress Note - Text Progress Note Date: 01/20/23 The patient appears to be mildly confused today. He appears to have some paranoid delusions. He has had some flatus per his . On exam his vital signs appear stable. Abdomen soft. Status post left colectomy. Patient will start diet.
[2023-01-20] MEDS ORDERED: HALOPERIDOL LACTATE 5 MG/ML 1 ML VIAL IM PRN ×2 (14:13→14:28)
--- NOTE | 2023-01-20 14:26 | P.PN ---
Subjective Progress Note Date: 01/20/23 72-year-old male with PMH of colonic polyp, CAD, hypertension, dyslipidemia, BPH, smoker, anxiety, CKD presents to [facility] for elective surgery. He underwent takedown of splenic flexure, left colectomy, partial omentectomy with Dr. Snowden on 01/16. [facility] has been consulted for medical management of this patient. Patient reports generalized abdominal pain only with movement. He denies any nausea or vomiting. He has no complaints at this time. BP is 147/58: Pulse of 91, respiratory rate of 16, 93% on 2 L nasal cannula. CMP shows sodium of 136, bicarb of 21, creatinine of 1.99, glucose 131. Urinary catheter in place. Estimated blood loss is 150 cc. 01/17 Patient was seen and examined. He reports moderate abdominal pain at the site of incision. No bowel movement or passing gas. Tolerating CLD well. CBC shows Hg 12.9. BMP shows Na 133, Cr 2, glucose 138. A1c 6.7. Ca 7.9. 01/18 Patient was seen and examined. He appears short of breath. He continues to report uncontrolled pain at the site of incision. No bowel movement, not passing gas. CXR done yesterday shows atelectasis of the RML. CBC shows Hg 12.3. BMP shows Na 134, Cr 1.71, glucose 129 and Ca 7.9. 01/19 Patient was seen and examined. Currently on 4L NC. He reports improving pain in his abdomen. Does not appear SOB. No new labs done today. 01/20 Patient was seen and examined. is at beside. Patient reports passing gas. Case was discussed with RN, patient was combative overnight, he was paranoid that hospital staff were part of the and out to get him. His reports no history of delusions or paranoid behaviour. states patient is not a drinker. reports no history of psychiatric history. CBC shows Hg 11.5. BMP shows Cr 1.8, glucose 121, Ca 8.6. General: non toxic, mild distress, appears at stated age Derm: warm, dry Head: atraumatic, normocephalic, symmetric Eyes: EOMI, no lid lag, anicteric sclera Cardiovascular: S1S2 tachycardic, no murmur Lungs: Decreased BS bilateral, no rhonchi, no rales , no accessory muscle use Abd: Midline incision dressing c/d/i. slightly distended. + BS Ext: no gross muscle atrophy, no edema, no contractures Neuro: no focal neuro deficits Psych: paranoid Hospital induced delirium with paranoid behavior COPD exacerbation and atelectasis, improving CAD Hypertension Dyslipidemia BPH Smoker Anxiety CKD Resolved: AHRF Based on my assessment of this patient, this patient meets a moderate complexity level of care. Patient has a chronic diagnosis as below: Hospital induced delirium with paranoid behavior: Frequent redirection. Haldol IM only if needed. Sitter. COPD exacerbation and atelectasis: Incentive spirometer. Symbicort. DuoNeb QID scheduled. CAD: Restart Plavix 75 mg PO QD when OK with Surgery. Lipitor 80 mg PO QHS. [place] olol 50 mg PO QD. Hypertension: Antihypertensive medication as above. Dyslipidemia: Lipitor as above. BPH: Doxazosin 2 mg PO QHS. Smoker: Patient encouraged to quit. Anxiety: Ativan 2 mg PO BID PRN. CKD: Appears at baseline. Insulin sliding scale with accuchecks ACHS and hypoglycemic precautions. SCDs for DVT prophylaxis. FULL CODE. I have reviewed the following bi consultant notes: Surgery note. I have reviewed the results of the following tests: CBC. BMP. I have ordered the following tests: I have discussed the care of this patient with the following independent historian: . RN I have independently interpreted the following test below: I have discussed the management of this patient with the following physician: Objective - Vital Signs Vital signs: Vital Signs Temp 97.3 F L 01/20/23 12:25 Pulse 95 01/20/23 12:25 Resp 17 01/20/23 12:25 BP 165/73 01/20/23 12:25 Pulse Ox 94 L 01/20/23 12:25 FiO2 Intake & Output 01/19/23 01/20/23 01/20/23 18:59 06:59 18:59 Output Total 600 Balance -600 Output: Urine 600 Other: Voiding Method Urinal # Voids 5 2 - Labs CBC & Chem 7: 01/20/23 05:36 01/20/23 05:36 Labs: Abnormal Lab Results - Last 24 Hours (Table) 01/19/23 01/19/23 01/20/23 Range/Units 16:49 21:09 05:36 RBC 4.09 L (4.40-5.60) X 10*6/uL Hgb 11.5 L (13.0-17.0) d/dL Hct 35.8 L (39.6-50.0) % RDW 15.0 H (11.5-14.5) % Creatinine (0.6-1.5) mg/dL Est GFR (CKD-EPI) (>=60) BUN/Creatinine Ratio (12.00-20.00) Ratio Glucose (70-110) mg/dL POC Glucose (mg/dL) 185 H 138 H (70-110) mg/dL Calcium (8.7-10.3) mg/dL 01/20/23 01/20/23 01/20/23 Range/Units 05:36 06:02 11:25 RBC (4.40-5.60) X 10*6/uL Hgb (13.0-17.0) d/dL Hct (39.6-50.0) % RDW (11.5-14.5) % Creatinine 1.8 H (0.6-1.5) mg/dL Est GFR (CKD-EPI) 40 L (>=60) BUN/Creatinine Ratio 5.33 L (12.00-20.00) Ratio Glucose 121 H (70-110) mg/dL POC Glucose (mg/dL) 136 H 147 H (70-110) mg/dL Calcium 8.6 L (8.7-10.3) mg/dL
[2023-01-20 16:28] LABS: Glucose,Whole Blood 198 mg/dL (70-110)
[2023-01-20] MEDS ORDERED: ACETAMINOPHEN TAB 325 MG TAB PO STA (20:40)
[2023-01-20 20:47] LABS: Glucose,Whole Blood 142 mg/dL (70-110)
[2023-01-20] MEDS: DOXAZOSIN 2 MG TAB PO SCH (21:19)
[2023-01-20] MEDS: LORazepam 1 MG TAB PO PRN (21:19)
[2023-01-21] MEDS: D5-0.45% NACL WITH KCL 20MEQ/L 1,000 ML IV SCH ×3 (00:14→16:02)
[2023-01-21] MEDS: HEPARIN SODIUM,PORCINE 5,000 UNIT/ML 1 ML VIAL SQ SCH ×3 (00:14→16:47)
[2023-01-21 05:46] LABS: Glucose,Whole Blood 121 mg/dL (70-110)
[2023-01-21] MEDS: INSULIN ASPART (NovoLOG) 100 UNIT/ML VIAL SQ SCH ×4 (06:10→21:49)
[2023-01-21] MEDS: IPRATROPIUM-ALBUTEROL 3 ML NEB INHALATION SCH ×4 (07:48→19:19)
[2023-01-21] MEDS: SYMBICORT 160-4.5 MCG INHALER INHALATION SCH ×2 (07:48→19:19)
[2023-01-21] MEDS: FAMOTIDINE 20 MG TAB PO SCH (09:35)
[2023-01-21] MEDS: atenoloL 50 MG TAB PO SCH (09:35)
[2023-01-21] MEDS: ALVIMOPAN 12 MG CAPSULE PO SCH ×2 (09:35→21:38)
--- NOTE | 2023-01-21 09:36 | P.PN ---
Progress Note - Text Progress Note Date: 01/21/23 The patient is a multiple bowel movements. On exam vital signs are stable. Abdomen soft Incision is clean dry tach Patient will have his diet advanced. We despite discharged home tomorrow.
[2023-01-21 11:39] LABS: Glucose,Whole Blood 132 mg/dL (70-110)
--- NOTE | 2023-01-21 13:04 | P.PN ---
Subjective Progress Note Date: 01/21/23 72-year-old male with PMH of colonic polyp, CAD, hypertension, dyslipidemia, BPH, smoker, anxiety, CKD presents to [facility] for elective surgery. He underwent takedown of splenic flexure, left colectomy, partial omentectomy with Dr. Snowden on 01/16. [facility] has been consulted for medical management of this patient. Patient reports generalized abdominal pain only with movement. He denies any nausea or vomiting. He has no complaints at this time. BP is 147/58: Pulse of 91, respiratory rate of 16, 93% on 2 L nasal cannula. CMP shows sodium of 136, bicarb of 21, creatinine of 1.99, glucose 131. Urinary catheter in place. Estimated blood loss is 150 cc. 01/17 Patient was seen and examined. He reports moderate abdominal pain at the site of incision. No bowel movement or passing gas. Tolerating CLD well. CBC shows Hg 12.9. BMP shows Na 133, Cr 2, glucose 138. A1c 6.7. Ca 7.9. 01/18 Patient was seen and examined. He appears short of breath. He continues to report uncontrolled pain at the site of incision. No bowel movement, not passing gas. CXR done yesterday shows atelectasis of the RML. CBC shows Hg 12.3. BMP shows Na 134, Cr 1.71, glucose 129 and Ca 7.9. 01/19 Patient was seen and examined. Currently on 4L NC. He reports improving pain in his abdomen. Does not appear SOB. No new labs done today. 01/20 Patient was seen and examined. is at beside. Patient reports passing gas. Case was discussed with RN, patient was combative overnight, he was paranoid that hospital staff were part of the and out to get him. His reports no history of delusions or paranoid behaviour. states patient is not a drinker. reports no history of psychiatric history. CBC shows Hg 11.5. BMP shows Cr 1.8, glucose 121, Ca 8.6. 01/21 Patient was seen and examined. Able to have a bowel movement today. Currently on RA. He continues to be paranoid but symptoms generally improved compared to yesterday. No Haldol was used. He is more calm. His did spend the night last night. General: non toxic, mild distress, appears at stated age Derm: warm, dry Head: atraumatic, normocephalic, symmetric Eyes: EOMI, no lid lag, anicteric sclera Cardiovascular: S1S2 normal, no murmur Lungs: Decreased BS bilateral, no rhonchi, no rales , no accessory muscle use Abd: Midline incision dressing c/d/i. slightly distended. + BS Ext: no gross muscle atrophy, no edema, no contractures Neuro: no focal neuro deficits Psych: paranoid Hospital induced delirium with paranoid behavior COPD exacerbation and atelectasis, improving CAD Hypertension Dyslipidemia BPH Smoker Anxiety CKD Resolved: AHRF Based on my assessment of this patient, this patient meets a moderate complexity level of care. Patient has a chronic diagnosis as below: Hospital induced delirium with paranoid behavior: Frequent redirection. Haldol IM only if needed. Sitter. COPD exacerbation and atelectasis: Incentive spirometer. Symbicort. DuoNeb QID scheduled. CAD: Restart Plavix 75 mg PO QD when OK with Surgery. Lipitor 80 mg PO QHS. Atenolol 50 mg PO QD. Hypertension: Antihypertensive medication as above. Dyslipidemia: Lipitor as above. BPH: Doxazosin 2 mg PO QHS. Smoker: Patient encouraged to quit. Anxiety: Ativan 2 mg PO BID PRN. CKD: Appears at baseline. Insulin sliding scale with accuchecks ACHS and hypoglycemic precautions. SCDs for DVT prophylaxis. FULL CODE. I have reviewed the following testing consultant notes: Surgery note. I have reviewed the results of the following tests: I have ordered the following tests: I have discussed the care of this patient with the following independent historian: RN I have independently interpreted the following test below: I have discussed the management of this patient with the following physician: Objective - Vital Signs Vital signs: Vital Signs Temp 98.5 F 01/21/23 06:50 Pulse 70 01/21/23 08:00 Resp 17 01/21/23 06:50 BP 160/68 01/21/23 06:50 Pulse Ox 98 01/21/23 07:49 FiO2 Intake & Output 01/20/23 01/21/23 01/21/23 18:59 06:59 18:59 Intake Total 810 Balance 810 Intake: Intake, IV Titration 810 Amount D5-0.45% NaCl with KCl 810 20Meq/l 1,000 ml @ 125 mls/hr IV .Q8H [facility] Rx#: [id number] Other: # Voids 3 3 # Bowel Movements 1 - Labs CBC & Chem 7: 01/20/23 05:36 01/20/23 05:36 Labs: Abnormal Lab Results - Last 24 Hours (Table) 01/20/23 01/20/23 01/21/23 Range/Units 16:26 20:44 05:42 POC Glucose (mg/dL) 198 H 142 H 121 H (70-110) mg/dL 01/21/23 Range/Units 11:38 POC Glucose (mg/dL) 132 H (70-110) mg/dL
[2023-01-21 16:37] LABS: Glucose,Whole Blood 127 mg/dL (70-110)
[2023-01-21 20:56] LABS: Glucose,Whole Blood 149 mg/dL (70-110)
[2023-01-21] MEDS: LORazepam 1 MG TAB PO PRN (21:53)
[2023-01-21] MEDS: DOXAZOSIN 2 MG TAB PO SCH (22:40)
[2023-01-22] MEDS: HEPARIN SODIUM,PORCINE 5,000 UNIT/ML 1 ML VIAL SQ SCH ×2 (01:41→08:46)
[2023-01-22] MEDS: D5-0.45% NACL WITH KCL 20MEQ/L 1,000 ML IV SCH ×2 (05:37→08:39)
[2023-01-22 05:53] LABS: Glucose,Whole Blood 147 mg/dL (70-110)
[2023-01-22] MEDS: INSULIN ASPART (NovoLOG) 100 UNIT/ML VIAL SQ SCH ×2 (06:51→13:11)
[2023-01-22 07:49] VITALS: BP 148/76; RESP 13; TEMP 97.9
[2023-01-22] MEDS: ALVIMOPAN 12 MG CAPSULE PO SCH (08:40)
[2023-01-22] MEDS: FAMOTIDINE 20 MG TAB PO SCH (08:46)
[2023-01-22] MEDS: atenoloL 50 MG TAB PO SCH (08:46)
[2023-01-22] MEDS: SYMBICORT 160-4.5 MCG INHALER INHALATION SCH (08:57)
[2023-01-22] MEDS: IPRATROPIUM-ALBUTEROL 3 ML NEB INHALATION SCH ×2 (08:57→12:01)
[2023-01-22 11:27] LABS: Glucose,Whole Blood 153 mg/dL (70-110)
[2023-01-22 12:08] VITALS: PULSE 80
--- NOTE | 2023-01-22 12:44 | P.PN ---
Subjective Progress Note Date: 01/22/23 72-year-old male with PMH of colonic polyp, CAD, hypertension, dyslipidemia, BPH, smoker, anxiety, CKD presents to [facility] for elective surgery. He underwent takedown of splenic flexure, left colectomy, partial omentectomy with Dr. Snowden on 01/16. [facility] has been consulted for medical management of this patient. Patient reports generalized abdominal pain only with movement. He denies any nausea or vomiting. He has no complaints at this time. BP is 147/58: Pulse of 91, respiratory rate of 16, 93% on 2 L nasal cannula. CMP shows sodium of 136, bicarb of 21, creatinine of 1.99, glucose 131. Urinary catheter in place. Estimated blood loss is 150 cc. 01/17 Patient was seen and examined. He reports moderate abdominal pain at the site of incision. No bowel movement or passing gas. Tolerating CLD well. CBC shows Hg 12.9. BMP shows Na 133, Cr 2, glucose 138. A1c 6.7. Ca 7.9. 01/18 Patient was seen and examined. He appears short of breath. He continues to report uncontrolled pain at the site of incision. No bowel movement, not passing gas. CXR done yesterday shows atelectasis of the RML. CBC shows Hg 12.3. BMP shows Na 134, Cr 1.71, glucose 129 and Ca 7.9. 01/19 Patient was seen and examined. Currently on 4L NC. He reports improving pain in his abdomen. Does not appear SOB. No new labs done today. 01/20 Patient was seen and examined. is at beside. Patient reports passing gas. Case was discussed with RN, patient was combative overnight, he was paranoid that hospital staff were part of the and out to get him. His reports no history of delusions or paranoid behaviour. states patient is not a drinker. reports no history of psychiatric history. CBC shows Hg 11.5. BMP shows Cr 1.8, glucose 121, Ca 8.6. 01/21 Patient was seen and examined. Able to have a bowel movement today. Currently on RA. He continues to be paranoid but symptoms generally improved compared to yesterday. No Haldol was used. He is more calm. His did spend the night last night. 01/22 Patient was seen and examined. No acute events overnight. at bedside. Hopeful plans for discharge home today with home health. General: non toxic, mild distress, appears at stated age Derm: warm, dry Head: atraumatic, normocephalic, symmetric Eyes: EOMI, no lid lag, anicteric sclera Cardiovascular: S1S2 normal, no murmur Lungs: Decreased BS bilateral, no rhonchi, no rales , no accessory muscle use Abd: Midline incision dressing c/d/i. slightly distended. + BS Ext: no gross muscle atrophy, no edema, no contractures Neuro: no focal neuro deficits Psych: paranoid Hospital induced delirium with paranoid behavior COPD exacerbation and atelectasis, improving CAD Hypertension Dyslipidemia BPH Smoker Anxiety CKD Resolved: AHRF Based on my assessment of this patient, this patient meets a moderate complexity level of care. Patient has a chronic diagnosis as below: Hospital induced delirium with paranoid behavior: Frequent redirection. Haldol IM only if needed. Expected to improve after discharge. COPD exacerbation and atelectasis: Incentive spirometer. Symbicort. DuoNeb QID scheduled. CAD: Restart Plavix 75 mg PO QD when OK with Surgery. Lipitor 80 mg PO QHS. Atenolol 50 mg PO QD. Hypertension: Antihypertensive medication as above. Dyslipidemia: Lipitor as above. BPH: Doxazosin 2 mg PO QHS. Smoker: Patient encouraged to quit. Anxiety: Ativan 2 mg PO BID PRN. CKD: Appears at baseline. Insulin sliding scale with accuchecks ACHS and hypoglycemic precautions. SCDs for DVT prophylaxis. FULL CODE. I have reviewed the following dairy feed sales consultant notes: I have reviewed the results of the following tests: I have ordered the following tests: I have discussed the care of this patient with the following independent historian: I have independently interpreted the following test below: I have discussed the management of this patient with the following physician: Objective - Vital Signs Vital signs: Vital Signs Temp 97.9 F 01/22/23 07:05 Pulse 80 01/22/23 12:07 Resp 13 01/22/23 07:05 BP 148/76 01/22/23 07:05 Pulse Ox 92 L 01/22/23 08:58 FiO2 21 01/22/23 08:58 Intake & Output 01/21/23 01/22/23 01/22/23 18:59 06:59 18:59 Other: Voiding Method Toilet # Voids 3 - Labs CBC & Chem 7: 01/20/23 05:36 01/20/23 05:36 Labs: Abnormal Lab Results - Last 24 Hours (Table) 01/21/23 01/21/23 01/22/23 Range/Units 16:35 20:54 05:51 POC Glucose (mg/dL) 127 H 149 H 147 H (70-110) mg/dL 01/22/23 Range/Units 11:26 POC Glucose (mg/dL) 153 H (70-110) mg/dL
--- NOTE | 2023-01-22 13:18 | P.DS ---
Providers Date of admission: 01/16/23 08:42 Expected date of discharge: 01/22/23 Attending physician: Maynor Snowden Consults: 01/16/23 12:44 Consult Physician Routine Consulting Provider: Janell Rangel Consult Reason/Comments: Medical management Do you want consulting provider notified?: Yes Primary care physician: [facility] Hospital Course: Discharge diagnosis 1. Left colon polyp 2. Atelectasis 3. Hospital-induced delirium and paranoid behavior improved Hospital course This is a 72-year-old male with a history of left colon polyp status post takedown splenic flexure, left colectomy and partial omentectomy. Patient is tolerating diet. He is having bowel movements. He has been up and ambulating. He is afebrile. Incision site clean dry and intact. He is stable for discharge. Please refer to chart for further details. Physician Uat Tester note has been reviewed by physician. Signing provider agrees with the documented findings, assessment, and plan of care. Patient Condition at Discharge: Stable Plan - Discharge Summary Discharge Rx Participant: Yes New Discharge Prescriptions: New oxyCODONE HCL [OxyIR] 5 mg PO Q6H PRN 3 Days #12 tab PRN Reason: Pain Acetaminophen Tab [Tylenol Tab] 650 mg PO Q4H PRN #30 tablet PRN Reason: Pain Continue LORazepam [Ativan] 2 mg PO BID PRN PRN Reason: Anxiety Doxazosin Mesylate 4 mg PO DAILY Budesonide-Formot 160-4.5 Mcg [Symbicort 160-4.5 Mcg Inhaler] 2 puff INHALATION RT-BID PRN PRN Reason: Dyspnea Atorvastatin [Lipitor] 80 mg PO HS #30 tab Clopidogrel [Plavix] 75 mg PO QAM atenoloL [Tenormin] 50 mg PO QAM Butalb/APAP/Caff 50-325-40Mg [Fioricet 50-325-40] 1 tab PO DIRECTED PRN PRN Reason: Migraine Headache Discontinued Peg 3350 (236 gm/Btl) + Lytes [Golytely Lavage] 4,000 ml PO DIRECTED #1 each Discharge Medication List Doxazosin Mesylate 4 mg PO DAILY 04/22/14 [History] LORazepam [Ativan] 2 mg PO BID PRN 04/22/14 [History] Budesonide-Formot 160-4.5 Mcg [Symbicort 160-4.5 Mcg Inhaler] 2 puff INHALATION RT-BID PRN 10/02/16 [History] Atorvastatin [Lipitor] 80 mg PO HS #30 tab 10/05/16 [Rx] Clopidogrel [Plavix] 75 mg PO QAM 12/31/19 [History] atenoloL [Tenormin] 50 mg PO QAM 12/31/19 [History] Butalb/APAP/Caff 50-325-40Mg [Fioricet 50-325-40] 1 tab PO DIRECTED PRN 08/30/20 [History] Acetaminophen Tab [Tylenol Tab] 650 mg PO Q4H PRN #30 tablet 01/22/23 [Rx] oxyCODONE HCL [OxyIR] 5 mg PO Q6H PRN 3 Days #12 tab 01/22/23 [Rx] Follow up Appointment(s)/Referral(s): [facility] [NON-STA[facility]] - 1 Week ([facility] will call you to arrange a visit) Maynor Snowden MD [STAFF PHYSICIAN] - 01/30/23 2:45 pm Patient Instructions/Handouts: Acetaminophen (By mouth), Oxycodone, Rapid Release (By mouth), Bowel Resection (DC) Activity/Diet/Wound Care/Special Instructions: belongings in security No driving while taking OxyIR No lifting over 10 pounds Shower daily. No soaking or tub baths for 2 weeks Very light activity until you are reevaluated at your follow up appointment with your surgeon Discharge Disposition: HOME SELF-CARE
== END 2023-01-22 14:13 | disposition home health service (06) | DRG 329 ==
LOC: 2ORMAIN 08:42 → 4SSUR 14:57
PROVIDERS: ADMIT Surgery; ATTEND Surgery
PROC: 0DBU0ZZ Excision of Omentum, Open Approach (ICD-10-PCS; principal; 2023-01-16 10:20)
PROC: 0DTG0ZZ Resection of Left Large Intestine, Open Approach (ICD-10-PCS; principal; 2023-01-16 10:20)
DX: K63.5 Polyp of colon (principal); J96.01 Acute respiratory failure with hypoxia; F05 Delirium due to known physiological condition; J44.1 Chronic obstructive pulmonary disease with (acute) exacerbation; J98.11 Atelectasis; G89.18 Other acute postprocedural pain; I25.10 Atherosclerotic heart disease of native coronary artery without angina pectoris; E78.5 Hyperlipidemia, unspecified; N40.0 Benign prostatic hyperplasia without lower urinary tract symptoms; F41.9 Anxiety disorder, unspecified; T41.205A Adverse effect of unspecified general anesthetics, initial encounter; E11.22 Type 2 diabetes mellitus with diabetic chronic kidney disease; I12.9 Hypertensive chronic kidney disease with stage 1 through stage 4 chronic kidney disease, or unspecified chronic kidney disease; R25.1 Tremor, unspecified; F17.200 Nicotine dependence, unspecified, uncomplicated; N18.9 Chronic kidney disease, unspecified; Z79.899 Other long term (current) drug therapy; Z79.51 Long term (current) use of inhaled steroids; Z79.02 Long term (current) use of antithrombotics/antiplatelets; I25.2 Old myocardial infarction; Z28.310 Unvaccinated for COVID-19; Z88.2 Allergy status to sulfonamides; Z88.1 Allergy status to other antibiotic agents; Z88.5 Allergy status to narcotic agent
CPT/HCPCS: 71045; 80048; 80053; 83036; 83735; 85025; 85027; 86850; 86900; 86901; 88309; 94640; 94760

== ENCOUNTER 2024-01-02 06:01 | Day surgery (SDC) | payer OTHER ==
[~2024-01-02 06:01] MED LIST changes: -ACETAMINOPHEN TAB 500 MG TAB PO PRN; -HEPARIN SODIUM,PORCINE/PF 5,000 UNIT/0.5 ML SYRINGE SQ PRN; +TETRACAINE 0.5% OPHTH (PF) DROPS 4 ML BTL OP PRN; -metroNIDAZOLE-NS PMX 500 MG in SALINE 1 100ML.BAG IVPB PRN
[2024-01-02] MEDS: IV FLUID CONTINUATION 1,000 ML IV ONE (06:38)
[2024-01-02 06:48] VITALS: TEMP 97.2
[2024-01-02] MEDS: PHENYLEPHRINE 2.5% OPHTH DRP 2ML OP PRN (06:55)
[2024-01-02] MEDS: CYCLOPENTOLATE 1% OPHTH SOLN 2 ML BTL OP PRN (06:58)
[2024-01-02] MEDS: LACTATED RINGERS 1,000 ML IV SCH (07:09)
[2024-01-02] MEDS: LIDOCAINE 1% (10MG/ML) FOR IV START INTRADERMA PRN (07:09)
[2024-01-02 07:23] LABS: Glucose,Whole Blood 191 mg/dL (70-110)
[2024-01-02] MEDS ORDERED: fentaNYL (PF) 50 MCG/ML 2 ML AMP ONE (07:30)
[2024-01-02] MEDS ORDERED: MIDAZOLAM 2 MG/2 ML VIAL ONE (07:30)
[2024-01-02] MEDS: DUOVISC KIT (GREEN BOX) INTRAOCULA ONE (07:41)
[2024-01-02] MEDS: EPINEPHrine (PF) 0.3 ML in BALANCED SALT IRRIG SOLN COMB2 500 ML IRRIGATION ONE (07:41)
[2024-01-02] MEDS: BALANCED SALT IRRIG SOLN COMB2 15 ML IRRIG.SOLN IRRIGATION ONE (07:41)
[2024-01-02] MEDS: LIDOCAINE 1% (PF) 10MG/ML VIAL MISCELLANE ONE (07:42)
[2024-01-02] MEDS: EPINEPHrine (PF) 1 MG/ML AMP SQ ONE (07:42)
[2024-01-02] MEDS: TIMOLOL 0.5% OPHTH DROPS 5 ML BTL OP PRN (07:44)
[2024-01-02] MEDS: GENTAMICIN 0.3% OPHTH DROPS 5 ML BTL OPHTHALMIC PRN (07:44)
--- NOTE | 2024-01-02 08:01 | P.OP ---
Date of Procedure: 01/02/24 Preoperative Diagnosis: NS & flomax exposure Postoperative Diagnosis: same Procedure(s) Performed: PIOL, OS Implants: MX60E 18.00 Anesthesia: MAC Surgeon: Alexander Hyde Pathology: none sent Condition: stable Disposition: same day Indications for Procedure: blurry vision Operative Findings: no complications
[2024-01-02 08:24] VITALS: BP 132/70; PULSE 69; RESP 15
--- NOTE | 2024-01-09 15:15 | OP ---
OPERATIVE REPORT DATE OF SERVICE : 01/02/2024 PREOPERATIVE DIAGNOSIS: Nuclear sclerosis, history of exposure to alpha blocking agents. POSTOPERATIVE DIAGNOSIS: Nuclear sclerosis, history of exposure to alpha blocking agents. OPERATION: Phacoemulsification of cataract and intraocular lens implant of his left eye. ESTIMATED BLOOD LOSS: Zero. SPECIMEN TAKEN: None. NARRATIVE: After obtaining the appropriate consent, the patient was brought to the operating room where the patient was placed under cardiac monitoring and prepped and draped in the usual sterile manner. At the 5 o'clock position, a 15-degree super sharp blade was used to create a paracentesis followed by instillation of 1% Xylocaine MPF 50:50 mix with BSS into the anterior chamber. This was followed by Duovisc viscoelastic to stabilize the anterior chamber. At the 3 o'clock position a self-sealing corneal flap incision was created using 2.8 mm pastor keratome. A cystotome was used to initiate a continuous tear capsulorrhexis which was completed with the Utrata forceps. A Binkhorst cannula was used to hydrodissect the lens nucleus followed by hydrodelineation. Phacoemulsification of the lens was performed utilizing phacochop in 19.81 seconds at 18.1% power. The remaining cortical material was removed using the irrigation aspiration mode followed by additional 1% Xylocaine MPF into the anterior chamber followed by viscoelastic to stabilize the capsular bag. A [employer]ch [employer] Lomb MX60E 18.0 diopters posterior chamber lens was placed into the capsular bag without difficulty. The remaining viscoelastic material was removed from the anterior chamber with the irrigation/aspiration. One part balanced salt solution, two parts epinephrine 1:1000 MPF and 1% lidocaine MPF for the anesthetic instilled in the eye. The incision was checked for watertight integrity. The patient then received 2 drops of 0.5% timolol followed by 2 drops Vigamox, was lightly patched and shielded in the usual manner. There were no complications from the procedure. The patient tolerated the procedure well and was returned to recovery in good condition. MMODL / IJN: [id number] /
== END 2024-01-02 08:35 | disposition home or self-care (01) ==
LOC: OR 06:01
PROVIDERS: ATTEND Ophthalmology
DX: H25.12 Age-related nuclear cataract, left eye

== ENCOUNTER 2024-01-16 06:43 | Day surgery (SDC) | payer OTHER ==
[2024-01-16] MEDS ORDERED: LIDOCAINE 1% (10MG/ML) FOR IV START INTRADERMA PRN (07:09)
[2024-01-16] MEDS ORDERED: LACTATED RINGERS 1,000 ML IV SCH (07:09)
[2024-01-16] MEDS: IV FLUID CONTINUATION 1,000 ML IV ONE (07:24)
[2024-01-16 07:32] VITALS: TEMP 97.1
[2024-01-16] MEDS: CYCLOPENTOLATE 1% OPHTH SOLN 2 ML BTL OP PRN (07:39)
[2024-01-16] MEDS: PHENYLEPHRINE 2.5% OPHTH DRP 2ML OP PRN (07:42)
[2024-01-16 08:03] LABS: Glucose,Whole Blood 217 mg/dL (70-110)
[2024-01-16] MEDS ORDERED: MIDAZOLAM 2 MG/2 ML VIAL ONE (08:03)
[2024-01-16] MEDS ORDERED: LABETALOL 5 MG/ML VIAL MDV ONE (08:03)
[2024-01-16] MEDS ORDERED: fentaNYL (PF) 50 MCG/ML 2 ML AMP ONE (08:03)
[2024-01-16] MEDS: IPRATROPIUM-ALBUTEROL 3 ML NEB INHALATION STA (08:04)
[2024-01-16] MEDS: EPINEPHrine (PF) 0.3 ML in BALANCED SALT IRRIG SOLN COMB2 500 ML IRRIGATION ONE (08:23)
[2024-01-16] MEDS: BALANCED SALT IRRIG SOLN COMB2 15 ML IRRIG.SOLN INTRAOCULA ONE (08:24)
[2024-01-16] MEDS: TIMOLOL 0.5% OPHTH DROPS 5 ML BTL OP PRN (08:24)
[2024-01-16] MEDS: DUOVISC KIT (GREEN BOX) INTRAOCULA ONE (08:24)
[2024-01-16] MEDS: LIDOCAINE 1% (PF) 10MG/ML VIAL MISCELLANE ONE (08:24)
[2024-01-16] MEDS: GENTAMICIN 0.3% OPHTH DROPS 5 ML BTL OPHTHALMIC PRN (08:24)
[2024-01-16] MEDS: EPINEPHrine (PF) 1 MG/ML AMP MISCELLANE ONE (08:25)
--- NOTE | 2024-01-16 08:41 | P.OP ---
Date of Procedure: 01/16/24 Preoperative Diagnosis: 4+NS Postoperative Diagnosis: same Procedure(s) Performed: PIOL, OD Implants: MX60E 18.00 Anesthesia: MAC Surgeon: Alexander Hyde Pathology: none sent Condition: stable Disposition: same day Indications for Procedure: blurry vision Operative Findings: no complications
[2024-01-16 09:35] VITALS: BP 130/76; PULSE 74; RESP 18
--- NOTE | 2024-01-16 13:45 | OP ---
OPERATIVE REPORT DATE OF SERVICE : 01/16/2024 PREOPERATIVE DIAGNOSIS: Nuclear sclerosis, right eye. POSTOPERATIVE DIAGNOSIS: Nuclear sclerosis, right eye. OPERATION: Phacoemulsification of cataract and interocular lens implant, right eye. ESTIMATED BLOOD LOSS: Zero. SPECIMEN TAKEN: None. NARRATIVE: After obtaining the appropriate consent, the patient was brought to the operating room where the patient was placed under cardiac monitoring and prepped and draped in the usual sterile manner. At the 11 o'clock position, a 15-degree super sharp blade was used to create a paracentesis followed by instillation of 1% epinephrine 1:1000 MPF with balanced salt solution and 1% Xylocaine MPF in the ratio of 2:1:1 into the anterior chamber. This was followed by DuoVisc viscoelastic to stabilize the anterior chamber. At the 9 o'clock position a self-sealing corneal flap incision was created using 2.8 mm pastor keratome. A cystotome was used to initiate a continuous tear capsulorrhexis which was completed with the Utrata forceps. A Binkhorst cannula was used to hydrodissect the lens nucleus followed by hydrodelineation. Phacoemulsification of the lens was performed utilizing phacochop in 14.49 seconds at 12.3% power. The remaining cortical material was removed using the irrigation aspiration mode followed by additional 1% Xylocaine MPF into the anterior chamber followed by viscoelastic to stabilize the capsular bag. A [employer]ausch [employer] Lomb MX60E 18.0 diopters posterior chamber lens was placed into the capsular bag without difficulty. The remaining viscoelastic material was removed from the anterior chamber with the irrigation/aspiration. Balanced salt solution was used to normalize the intraocular pressure. The incision was checked for watertight integrity. The patient then received 2 drops of 0.5% timolol followed by 2 drops Vigamox, was lightly patched and shielded in the usual manner. There were no complications from the procedure. The patient tolerated the procedure well and was returned to recovery in good condition. MMODL / IJN: [id number] /
== END 2024-01-16 09:44 | disposition home or self-care (01) ==
LOC: OR 06:43
PROVIDERS: ATTEND Ophthalmology
DX: H25.11 Age-related nuclear cataract, right eye

== ENCOUNTER → 2024-01-22 | Outpatient (CLI) | payer OTHER ==
--- NOTE | 2024-02-03 22:24 | CTL ---
EXAMINATION TYPE: CT Low Dose Lung DATE OF EXAM ORDERED: 01/22/2024 HISTORY: 73-year-old male smoker over 50 pack-year history. Lung cancer screening CT DLP: 106.[address] CTDI: 2.6 mGy Automated exposure control for dose reduction was used. SCREENING VISIT: Annual follow-up COMPARISON: 04/17/2022 TECHNIQUE: Low dose computed tomography scan was performed through the chest at 1 mm thick sections a nd reconstructed images in multiple planes at 1 mm and [address] DIAGNOSTIC QUALITY: Satisfactory FINDINGS: The heart and normal size without pericardial effusion. LAD and coronary artery calcifications are pr esent. Borderline ectatic ascending aorta 3.5 cm. Mild atherosclerotic calcifications. Conventional branchin g anatomy. No thoracic lymphadenopathy by CT size criteria. Borderline enlarged caliber main right and left pulmonary arteries up to 2.6 cm may reflect underlyin g pulmonary arterial hypertension. Some reticular densities along the periphery of the left base with some associated calcification exte nding up to the left anterior upper and mid lung is redemonstrated. There is some tree-in-bud opaciti es here along with calcified nodules. Focal areas of opacity measuring up to 1.3 cm at the left midlung is also unchanged. Background moderate to advanced emphysema and moderate diffuse bronchial wall thickening. No pleural effusion. No suspicious, enlarging pulmonary nodule is identified. Visualized upper abdomen shows cholecystectomy clips. Bones: No osseous destructive process. IMPRESSION: 1. LungRADS 2, benign. Evidence of prior granulomatous disease and extensive chronic postinflammatory pleural parenchymal changes throughout the left lung appears similar to prior study. Correlate to ex clude any underlying indolent or atypical infections. 2. COPD with moderate to advanced emphysema and possible pulmonary arterial hypertension. Recommend s moking cessation. CT LUNG RAD AND CT CHEST RECOMMENDATION: Lung-Rad 2 Benign Appearance or Behavior: Continue annual sc reening with LDCT in 12 months. S Modifier (other clinically significant findings): None [facility], , 02/03/2024 10:22 PM
== END | disposition home or self-care (01) ==
LOC: RADCTMAIN 14:09
PROVIDERS: ATTEND Internal Medicine Pulmonary Disease
CPT/HCPCS: 71271

== ENCOUNTER → 2024-07-10 | Outpatient (CLI) | payer OTHER ==
[2024-07-10 15:03] LABS: Basophils # (A) 0.06 X 10*3/uL (0.00-0.10); Basophils % (A) 0.5 %; Eosinophils # (A) 0.17 X 10*3/uL (0.04-0.35); Eosinophils % (A) 1.4 %; HCT 45.1 % (39.6-50.0); HGB 14.4 g/dL (13.0-17.0); Lymphocytes # (A) 1.82 X 10*3/uL (0.90-5.00); Lymphocytes % (A) 15.4 %; MCH 28.2 pg (27.0-32.0); MCHC 31.9 g/dL (32.0-37.0); MCV 88.3 FL (80.0-97.0); Mean Platelet Volume 9.5 FL (9.5-12.2); Monocytes # (A) 0.56 X 10*3/uL (0.20-1.00); Monocytes % (A) 4.8 %; NRBC Per 100 WBC 0 X 10*3/uL (0.00-0.01); Neutrophils # (A) 9.05 X 10*3/uL (1.80-7.70); Neutrophils % (A) 76.9 %; Platelet Count 220 X 10*3/uL (140-440); RBC 5.11 X 10*6/uL (4.40-5.60); RDW 15.2 % (11.5-14.5); WBC 11.78 X 10*3/uL (4.50-10.00)
[2024-07-10 16:22] LABS: Appearance,Urine Clear (Clear); Bilirubin,Urine Negative (Negative); Blood,Urine Negative (Negative); Color,Urine Yellow (Yellow); Ketones,Urine Negative (Negative); Nitrite,Urine Negative (Negative); PH, Urine 5.5; Specific Gravity,Urine >1.035 (1.001-1.030); Urobilinogen,Urine 0.2
[2024-07-10 20:22] LABS: % Iron Saturation 14.87 (15.00-50.00); Albumin 3.8 g/dL (3.8-4.9); BUN/Creat Ratio 11.61 Ratio (12.00-20.00); Blood Urea Nitrogen 20.9 mg/dL (9.0-27.0); Calcium 8.8 mg/dL (8.7-10.3); Carbon Dioxide 25.9 mmol/L (21.6-31.8); Chloride 110 mmol/L (96-109); Glucose 319 mg/dL (70-110); Iron 40 UG/DL (65-175); Magnesium 2.1 mg/dL (1.5-2.4); Phosphorus 3.2 mg/dL (2.4-5.1); Potassium 4.8 mmol/L (3.5-5.5); Sodium 146 mmol/L (135-145); Total Iron Binding Capacity 269 UG/DL (228-460); Uric Acid 5.3 mg/dL (3.7-8.7)
[2024-07-10 20:23] LABS: Urine Creatinine 78.3 mg/dL (39.0-259.0)
== END | disposition home or self-care (01) ==
LOC: LABWHC1 11:56
PROVIDERS: ATTEND Internal Medicine Nephrology
DX: E61.1 Iron deficiency (principal); N18.32 Chronic kidney disease, stage 3b; D63.1 Anemia in chronic kidney disease; N39.0 Urinary tract infection, site not specified; N25.81 Secondary hyperparathyroidism of renal origin; M10.9 Gout, unspecified; R80.9 Proteinuria, unspecified
CPT/HCPCS: 36415; 80048; 81003; 82040; 82043; 82570; 82728; 83540; 83550; 83735; 83970; 84100; 84550; 85025

== ENCOUNTER 2024-08-02 10:39 | Inpatient (IN) | payer OTHER ==
[2024-08-02 11:57] LABS: Anisocytosis Slight; Basophils % (A) 0 %; Eosinophils # (A) 0.3 k/uL (0-0.7); Eosinophils % (A) 3 %; HCT 46.8 % (39.0-53.0); HGB 14.8 gm/dL (13.0-17.5); Hypochromasia Slight; Lymphocytes # (A) 2.1 k/uL (1.0-4.8); Lymphocytes % (A) 22 %; MCH 28.5 pg (25.0-35.0); MCHC 31.7 g/dL (31.0-37.0); MCV 89.9 fL (80.0-100.0); Mean Platelet Volume 7.1; Monocytes # (A) 0.4 k/uL (0-1.0); Monocytes % (A) 4 %; Neutrophils # (A) 6.8 k/uL (1.3-7.7); Neutrophils % (A) 70 %; Platelet Count 209 k/uL (150-450); Poikilocytosis Slight; RBC 5.21 m/uL (4.30-5.90); RDW 16.2 % (11.5-15.5); WBC 9.8 k/uL (3.8-10.6)
[2024-08-02 12:12] LABS: ALT 30 U/L (4-49); AST 23 U/L (17-59); African American GFR (CKD) 43 (>60 ml/min/1.73 sqM); Alkaline Phosphatase 153 U/L (38-126); Anion Gap 7 mmol/L; Blood Urea Nitrogen 30 mg/dL (9-20); Calcium 9.8 mg/dL (8.4-10.2); Carbon Dioxide 28 mmol/L (22-30); Chloride 105 mmol/L (98-107); Creatine Kinase 41 U/L (55-170); Glucose 329 mg/dL (74-99); Non-African American GFR(CKD) 37 (>60 ml/min/1.73 sqM); Partial Thromboplastin Time 27.7 sec (22.0-30.0); Potassium 5.3 mmol/L (3.5-5.1); Prothrombin Time 10.7 sec (10.0-12.5); Sodium 140 mmol/L (137-145); Total Bilirubin 0.8 mg/dL (0.2-1.3); Total Protein 7.7 g/dL (6.3-8.2)
--- NOTE | 2024-08-02 12:18 | XR ---
Chest, 2 view. CLINICAL INDICATION: Male, 74 years old with history of altered mental status COMPARISON: 01/17/2023 TECHNIQUE: PA and lateral views the chest are obtained. FINDINGS: The lungs are clear and there is no consolidative or interstitial opacity. There is no pleural effusion or pneumothorax. The heart, pulmonary vasculature, mediastinum and daniel appear normal. The osseous structures are intact. IMPRESSION: No significant abnormality seen. No acute cardiopulmonary disease. [facility], , 08/02/2024 12:15 PM
--- NOTE | 2024-08-02 12:30 | CT ---
EXAMINATION TYPE: CT brain wo con DATE OF EXAM: 08/02/2024 COMPARISON: None CLINICAL INDICATION: Male, 74 years old with history of Neuro deficit, acute, stroke suspected; PHH, LT side weakness, trouble ambulating. CT DLP: 1170.4 mGycm Automated exposure control for dose reduction was used. Findings: The ventricles, basal cisterns and sulci over the convexities are within normal range and is age and there is no mass effect or shift of midline structures. There is a moderate focal area of encephalomalacia in the right temporoparietal cortex and subcortica l white matter consistent with a remote ischemic infarct. There is no acute intra or extra-axial hemorrhage. The intraorbital contents appear normal and symmetric. The posterior fossa including the brainstem, fourth ventricle and cerebellopontine angles appear norm al. There is mild chronic inflammatory changes in maxillary sinuses. The calvarium is intact. IMPRESSION: 1. No acute bleed or mass effect. 2. 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 3. Mild age-appropriate atrophy. [facility], Workstation: LISA 08/02/2024 12:28 PM
--- NOTE | 2024-08-02 12:33 | CT ---
EXAMINATION TYPE: CT thor lumbar spine wo con DATE OF EXAM: 08/02/2024 COMPARISON: None CLINICAL INDICATION: Male, 74 years old with history of left leg weakness; PHH, LT side weakness, tro uble ambulating. CT DLP: 1728.2 mGycm Automated exposure control for dose reduction was used. FINDINGS: The thoracic and lumbar vertebral segments are normal in height and alignment and there is no fractur e or subluxation. The disc spaces are well preserved in height and there is no significant degenerative disc disease. There is no disc herniation or spinal stenosis. There is no bony neural foraminal encroachment. Paraspinal soft tissues unremarkable. IMPRESSION: No significant abnormality seen. [facility], , 08/02/2024 12:31 PM
--- NOTE | 2024-08-02 13:10 | ED ---
General Adult HPI - General Chief complaint: Neuro Symptoms/Deficit Stated complaint: L leg numbness Time Seen by Provider: 08/02/24 10:45 Source: patient, family Limitations: no limitations - History of Present Illness Initial comments: 74-year-old male with past medical history of hypertension, hyperlipidemia, diabetes, SC who presents to the emergency department with left leg weakness. States has been going on for the past 3 days. He reports that he suddenly had weakness with difficulties ambulating. He denies any pain in the hip or back. Does report to a back injury in 1979 but has not had any significant pain or weakness in his lower extremities until now. He does admit to some weakness in his left arm as well however it is not as pronounced. Denies any numbness or tingling. No speech deficit. No facial droop. Does admit to a mild headache. Patient had to be coaxed by his significant other to come into the emergency department for evaluation. He denies previous history of stroke. He does not take an aspirin. He denies any abdominal pain. No other alleviating, precipitating or modifying factors - Related Data Home Medications Medication Instructions Recorded Confirmed LORazepam [Ativan] 2 mg PO BID PRN 04/22/14 01/16/24 Budesonide-Formot 160-4.5 Mcg 2 puff INHALATION RT-BID PRN 10/02/16 01/16/24 [Symbicort 160-4.5 Mcg Inhaler] Clopidogrel [Plavix] 75 mg PO QAM 12/31/19 01/16/24 atenoloL [Tenormin] 50 mg PO QAM 12/31/19 01/16/24 Butalb/APAP/Caff 50-325-40Mg 1 tab PO DIRECTED PRN 08/30/20 01/16/24 [Fioricet 50-325-40] Cholecalciferol [Vitamin D3 (25 25 mcg PO DAILY 01/01/24 01/16/24 Mcg = 1000 Iu)] Empagliflozin [Jardiance] 10 mg PO QAM 01/01/24 01/16/24 Vit C/E/Zn/Coppr/Lutein/Zeaxan 1 cap PO DAILY 01/01/24 01/16/24 [Preservision Areds 2 Softgel] Previous Rx's Medication Instructions Recorded Atorvastatin [Lipitor] 80 mg PO HS #30 tab 10/05/16 Allergies Allergy/AdvReac Type Severity Reaction Status Date / Time ciprofloxacin Allergy Unknown Unknown Verified 08/02/24 10:45 Sulfa (Sulfonamide AdvReac Severe Seizure Verified 08/02/24 10:45 Antibiotics) tramadol [From Ultram] AdvReac Unknown Nausea Verified 08/02/24 10:45 acetaminophen [From [place]] AdvReac Nausea Verified 08/02/24 10:45 hydrocodone [From [place]] AdvReac Nausea Verified 08/02/24 10:45 Review of Systems ROS Statement: Those systems with pertinent positive or pertinent negative responses have been documented in the HPI. ROS Other: All systems not noted in ROS Statement are negative. Past Medical History Past Medical History: Chest Pain / Angina, COPD, Diabetes Mellitus, Hy perlipidemia, Hypertension, Myocardial Infarction (SC), Prostate Disorder Additional Past Medical History / Comment(s): arrhythmia, seizures as child, BPH, migraines, abdominal hernia, cysts on kidneys, hx. colon polyps, type II diabetes, essential tremor Last Myocardial Infarction Date:: 2016 History of Any Multi-Drug Resistant Organisms: None Reported Past Surgical History: Bowel Resection, Cholecystectomy, Heart Catheterization With Stent, Tonsillectomy Additional Past Surgical History / Comment(s): prostate biopsy, colonoscopy, bowel resection 2022 Past Anesthesia/Blood Transfusion Reactions: No Reported Reaction Date of Last Stent Placement:: 2016 Past Psychological History: Anxiety Smoking Status: Current every day smoker Past Alcohol Use History: None Reported Past Drug Use History: None Reported - Past Family History Father Family Medical History: Cancer Mother Family Medical History: Cancer General Exam Limitations: no limitations General appearance: alert, in no apparent distress, other (Resting tremor of upper extremities) Head exam: Present: atraumatic, normocephalic, normal inspection Eye exam: Present: normal appearance, PERRL, EOMI. Absent: scleral icterus, conjunctival injection, periorbital swelling ENT exam: Present: normal exam, mucous membranes moist Neck exam: Present: normal inspection. Absent: tenderness, meningismus, lymphadenopathy Respiratory exam: Present: normal lung sounds bilaterally. Absent: respiratory distress, wheezes, rales, rhonchi, stridor Cardiovascular Exam: Present: regular rate, normal rhythm, normal heart sounds. Absent: systolic murmur, diastolic murmur, rubs, gallop, clicks GI/Abdominal exam: Present: soft, normal bowel sounds. Absent: distended, tenderness, guarding, rebound, rigid Extremities exam: Present: normal capillary refill, other (Weakness left leg, 3 out of 5). Absent: tenderness, pedal edema, joint swelling, calf tenderness Back exam: Present: normal inspection Neurological exam: Present: alert, oriented X3, CN II-XII intact Psychiatric exam: Present: normal affect, normal mood Skin exam: Present: warm, dry, intact, normal color. Absent: rash Course Vital Signs 08/02/24 08/02/24 10:40 11:23 Temperature 97.8 F Pulse Rate 77 71 Respiratory 18 18 Rate Blood Pressure 155/74 147/77 O2 Sat by Pulse 95 98 Oximetry Medical Decision Making - Medical Decision Making Was pt. sent in by a medical professional or institution (, PA, PET GROOMER, urgent care, hospital, or longterm...) When possible be specific @ -[No] Did you speak to anyone other than the patient for history (EMS, parent, family, police, friend...)? What history was obtained from this source @ -[No] Did you review nursing and triage notes (agree or disagree)? Why? @ -[I reviewed and agree with nursing and triage notes] Were old charts reviewed (outside hosp., previous admission, EMS record, old EKG, old radiological studies, urgent care reports/EKG's, longterm records)? Report findings @ -[No old charts were reviewed] Differential Diagnosis (chest pain, altered mental status, abdominal pain women, abdominal pain men, vaginal bleeding, weakness, fever, dyspnea, syncope, headache, dizziness, GI bleed, back pain, seizure, CVA, palpatations, mental health, musculoskeletal)? @ -[not applicable] EKG interpreted by me (3pts min.). @ -Yes and demonstrates sinus rhythm with a rate of 72. VA interval 212. QRS 150. QTc of 430. Right bundle sukh block. No acute ST segment elevations X-rays interpreted by me (1pt min.). @ -[None done] CT interpreted by me (1pt min.). @ -[None done] U/S interpreted by me (1pt. min.). @ -[None done] What testing was considered but not performed or refused? (CT, X-rays, U/S, labs)? Why? @ -[None] What meds were considered but not given or refused? Why? @ -[None] Did you discuss the management of the patient with other professionals (professionals i.e. , PA, PET GROOMER, lab, RT, psych nurse, social sciences instructor, peripheral vascular tech, teacher, information management officer, porter sample case)? Give summary @ -[No] Was smoking cessation discussed for >3mins.? @ -[No] Was critical care preformed (if so, how long)? @ -[No] Were there social determinants of health that impacted care today? How? (Homelessness, low income, unemployed, alcoholism, drug addiction, tr ansportation, low edu. Level, literacy, decrease access to med. care, mcc, rehab)? @ -[No] Was there de-escalation of care discussed even if they declined (Discuss DNR or withdrawal of care, Hospice)? DNR status @ -[No] What co-morbidities impacted this encounter? (DM, HTN, Smoking, COPD, CAD, Ca ncer, CVA, ARF, Chemo, Hep., AIDS, mental health diagnosis, sleep apnea, morbid obesity)? @ -[None] Was patient admitted / discharged? Hospital course, mention meds given and route, prescriptions, significant lab abnormalities, going to OR and other pertinent info. @ -[hospital course] Undiagnosed new problem with uncertain prognosis? @ -[No] Drug Therapy requiring intensive monitoring for toxicity (Heparin, Nitro, Insulin, Cardizem)? @ -[No] Were any procedures done? @ -[No] Diagnosis/symptom? @ -[default] Acute, or Chronic, or Acute on Chronic? @ -[default] Uncomplicated (without systemic symptoms) or Complicated (systemic symptoms)? @ -[default] Side effects of treatment? @ -[No] Exacerbation, Progression, or Severe Exacerbation? @ -[No] Poses a threat to life or bodily function? How? (Chest pain, USA, SC, pneumonia, PE, COPD, DKA, ARF, appy, cholecystitis, CVA, Diverticulitis, Homicidal, Suicidal, threat to staff... and all critical care pts) @ -[No] - Lab Data Result diagrams: 08/02/24 11:44 08/02/24 11:44 Lab Results 08/02/24 08/02/24 08/02/24 Range/Units 11:44 11:44 11:44 WBC 9.8 (3.8-10.6) k/uL RBC 5.21 (4.30-5.90) m/uL Hgb 14.8 (13.0-17.5) gm/dL Hct 46.8 (39.0-53.0) % MCV 89.9 (80.0-100.0) fL MCH 28.5 (25.0-35.0) pg MCHC 31.7 (31.0-37.0) g/dL RDW 16.2 H (11.5-15.5) % Plt Count 209 (150-450) k/uL MPV 7.1 Neutrophils % 70 % Lymphocytes % 22 % Monocytes % 4 % Eosinophils % 3 % Basophils % 0 % Neutrophils # 6.8 (1.3-7.7) k/uL Lymphocytes # 2.1 (1.0-4.8) k/uL Monocytes # 0.4 (0-1.0) k/uL Eosinophils # 0.3 (0-0.7) k/uL Basophils # 0.0 (0-0.2) k/uL Hypochromasia Slight Poikilocytosis Slight Anisocytosis Slight PT 10.7 (10.0-12.5) sec INR 1.0 (<1.2) APTT 27.7 (22.0-30.0) sec Sodium 140 (137-145) mmol/L Potassium 5.3 H (3.5-5.1) mmol/L Chloride 105 (98-107) mmol/L Carbon Dioxide 28 (22-30) mmol/L Anion Gap 7 mmol/L BUN 30 H (9-20) mg/dL Creatinine 1.78 H (0.66-1.25) mg/dL Est GFR (CKD-EPI)AfAm 43 (>60 ml/min/1.73 sqM) Est GFR (CKD-EPI)NonAf 37 (>60 ml/min/1.73 sqM) Glucose 329 H (74-99) mg/dL Calcium 9.8 (8.4-10.2) mg/dL Total Bilirubin 0.8 (0.2-1.3) mg/dL AST 23 (17-59) U/L ALT 30 (4-49) U/L Alkaline Phosphatase 153 H (38-126) U/L Creatine Kinase 41 L (55-170) U/L Troponin I (0.000-0.034) ng/mL Total Protein 7.7 (6.3-8.2) g/dL Albumin 4.0 (3.5-5.0) g/dL 08/02/24 Range/Units 11:44 WBC (3.8-10.6) k/uL RBC (4.30-5.90) m/uL Hgb (13.0-17.5) gm/dL Hct (39.0-53.0) % MCV (80.0-100.0) fL MCH (25.0-35.0) pg MCHC (31.0-37.0) g/dL RDW (11.5-15.5) % Plt Count (150-450) k/uL MPV Neutrophils % % Lymphocytes % % Monocytes % % Eosinophils % % Basophils % % Neutrophils # (1.3-7.7) k/uL Lymphocytes # (1.0-4.8) k/uL Monocytes # (0-1.0) k/uL Eosinophils # (0-0.7) k/uL Basophils # (0-0.2) k/uL Hypochromasia Poikilocytosis Anisocytosis PT (10.0-12.5) sec INR (<1.2) APTT (22.0-30.0) sec Sodium (137-145) mmol/L Potassium (3.5-5.1) mmol/L Chloride (98-107) mmol/L Carbon Dioxide (22-30) mmol/L Anion Gap mmol/L BUN (9-20) mg/dL Creatinine (0.66-1.25) mg/dL Est GFR (CKD-EPI)AfAm (>60 ml/min/1.73 sqM) Est GFR (CKD-EPI)NonAf (>60 ml/min/1.73 sqM) Glucose (74-99) mg/dL Calcium (8.4-10.2) mg/dL Total Bilirubin (0.2-1.3) mg/dL AST (17-59) U/L ALT (4-49) U/L Alkaline Phosphatase (38-126) U/L Creatine Kinase (55-170) U/L Troponin I <0.012 (0.000-0.034) ng/mL Total Protein (6.3-8.2) g/dL Albumin (3.5-5.0) g/dL Disposition Clinical Impression: Left leg weakness, Hyperglycemia, CVA (cerebral vascular accident) Disposition: ADMITTED IP TO THIS [facility] Condition: Stable Is patient prescribed a controlled substance at d/c from ED?: No Referrals: Sae Fabian DO [Primary Care Provider] - 1-2 days Time of Disposition: 13:13 Decision to Admit Reason: Admit from EC Decision Date: 08/02/24 Decision Time: 13:13
--- NOTE | 2024-08-02 13:58 | XR ---
EXAMINATION TYPE: XR Hip LT and AP Pelvis DATE OF EXAM: 08/02/2024 COMPARISON: NONE CLINICAL INDICATION: Male, 74 years old with history of leg weakness, no pain; TECHNIQUE: A single AP view of the pelvis is obtained. Two views of the left hip are obtained. FINDINGS: There is no acute fracture/dislocation evident in the pelvis. The hip and sacroiliac join ts appear symmetric and unremarkable. The overlying soft tissue appears unremarkable. Two views of left hip show no acute fracture or dislocation. No focal lytic or sclerotic lesion seen in the proximal left femur. The overlying soft tissue is unremarkable. IMPRESSION: There is no acute fracture or dislocation in the pelvis or left hip. [facility], , 08/02/2024 1:56 PM
[2024-08-02] MEDS: ASPIRIN 325 MG TAB PO STA (14:08)
[2024-08-02] MEDS: NICOTINE 21MG/24HR PATCH TRANSDERM STA (15:04)
[2024-08-02] MEDS ORDERED: DEXTROSE 50% SYRINGE 50 ML IVP PRN ×2 (15:05)
[2024-08-02] MEDS ORDERED: ALBUTEROL NEBULIZED 2.5 MG/3 ML INHALATION PRN (15:17)
[2024-08-02] MEDS: HEPARIN SODIUM,PORCINE 5,000 UNIT/ML 1 ML VIAL SQ SCH (15:37)
[2024-08-02] MEDS: CLOPIDOGREL 75 MG TAB PO SCH (15:37)
--- NOTE | 2024-08-02 15:50 | P.HPIM ---
History of Present Illness H&P Date: 08/02/24 I have seen and evaluated the patient today. Discussed with the resident and agree with the residents finding and plan as documented in the resident's note. Changes highlighted in blue font. History of present illness; 74-year-old man with PMH of hypertension, hyperlipidemia, diabetes mellitus, history of PA in 2017 with multiple stents placed (follows with Dr. Bee), CKD stage IIIb with baseline creatinine 1.71.8, active smoker 60 pack year. Presented to the Emergency Department with 3-5 day history of left leg weakness. His significant other, in the room with him, states it began Sunday when she noticed he was struggling to walk. He reports it came on suddenly and has noticed difficulty ambulating. He denies any associated pain in the upper back. Additionally, he notes some weakness of his left upper extremity however not as pronounced. Denies any numbness, tingling, speech deficit, facial droop. He does endorse having a mild headache. He has no history of stroke. Labratory review: -WBCs 9.8, hemoglobin 14.8, hematocrit 46.8, platelet 209; sodium 140, potassium 5.3, chloride 105, BUN 30, creatinine 1.78, glucose 329, calcium 9.8, total bilirubin 0.8, AST 23, ALT 30, alkaline phosphatase 153; troponin <0.012 Imaging: -Chest x-ray done in the ER independently interpreted shows no acute cardiopulmonary process -CT brain shows no acute bleed or mass effect, with remote infarct involving the right temporoparietal region -CT thoracic/lumbar spine showed no significant abnormality -Hip/pelvis x-ray shows no acute fracture or dislocation of the pelvis or left hip Vitals: -Blood pressure 155/74, heart rate 77, respiratory 18, SpO2 95% on room air Patient admitted to internal medicine service REVIEW OF SYSTEMS: Pertinent positives and negatives noted in HPI. The rest of the 14-point review of systems is negative. Physical Exam: General: nontoxic, no distress, appears at stated age Derm: warm, dry, intact Head: atraumatic, normocephalic, symmetric Eyes: EOMI, anicteric sclera Mouth: no lip lesion, mucus membranes moist Cardiovascular: S1 S2 reg, no murmur, rubs, or gallops Lungs: CTA bilateral, no rales, no accessory muscle use Abdominal: soft, non-tender to palpataion, no appreciable organomegaly Extremities: no gross muscle atrophy, no edema, no contractures Neuro: Alert, Oriented, CNII-XII grossly intact, gait normal; strength of right lower extremity 5/5, left lower extremity 34/5 strength greater in the proximal muscles Psych: well appearing, appropriate affect Assessment and plan 74-year-old man with PMH of hypertension, hyperlipidemia, diabetes mellitus, history of PA in 2017 with multiple stents placed (follows with Dr. Bee), CKD stage IIIb with baseline creatinine 1.71.8. Presented to the Emergency Department with 3-5 day history of left leg weakness. #Acute onset left lower extremity weakness, with evidence of remote infarct involving the right temporal parietal region on CT brain, CVA rule out -CT brain completed, showing remote infarct involving the right temporoparietal region -Brain MRI ordered, currently pending -Bilateral carotid duplex ultrasound ordered, currently pending -Echocardiogram ordered, currently pending -Lipid panel ordered, currently pending -Hemoglobin A1c ordered, currently pending -TSH ordered, currently pending -NIH score of 0 -Initiate 81 mg aspirin daily and Plavix 75 mg daily; Plan for 21 days of Plavix and Aspirin indefinitely, added protonix 40 PO daily for GI prophylaxis -Continue home Lipitor 80 mg nightly -Continue neurochecks -Neurology consulted -Physical therapy, speech therapy, Occupational Therapy consulted #Diabetes mellitus type 2 not on insulin -Accu-Cheks ACHS -Lantus 12 units nightly -Humalog 4 units 3 times daily with meals -Sliding scale -Monitor for hypoglycemia #CKD stage IIIb, with baseline creatinine 1.71.8 -Avoid nephrotoxic agents -Monitor BMP #Hypertension -Resumed home atenolol 50 mg daily -Continue to monitor vital signs #Hyperlipidemia -Restarted home 80 mg Lipitor -Lipid panel ordered, currently pending #Nicotine dependence -Nicotine 21 mg/24-hour patch daily -Discussed and advised the patient the importance of smoking cessation #BPH -resume home finasteride 5 mg, doxazosin 8 mg PO daily , patient to follow up with PCP or urology for optimization of therapy, currently on beta blockers for HTN as well GI prophylaxis: Protonix 40 mg p.o. daily DVT prophylaxis: Heparin 5000 units SQ every 8 hours The patient is admitted as observation with an anticipated less than 2 midnight stay for evaluation of stroke like symptoms CODE STATUS: Full code Discussed with: Patient Anticipated discharge place: Pending clinical course Dictation was produced using [employer] dictation software. please excuse any grammatical, word or spelling errors. Satish Garcia MD PGY-1 IM Past Medical History Past Medical History: Chest Pain / Angina, COPD, Diabetes Mellitus, Hyper lipidemia, Hypertension, Myocardial Infarction (PA), Prostate Disorder Additional Past Medical History / Comment(s): arrhythmia, seizures as child, BPH, migraines, abdominal hernia, cysts on kidneys, hx. colon polyps, type II diabetes, essential tremor Last Myocardial Infarction Date:: 2016 History of Any Multi-Drug Resistant Organisms: None Reported Past Surgical History: Bowel Resection, Cholecystectomy, Heart Catheterization With Stent, Tonsillectomy Additional Past Surgical History / Comment(s): prostate biopsy, colonoscopy, bowel resection 2022 Past Anesthesia/Blood Transfusion Reactions: No Reported Reaction Date of Last Stent Placement:: 2016 Past Psychological History: Anxiety Smoking Status: Current every day smoker Past Alcohol Use History: None Reported Past Drug Use History: None Reported - Past Family History Father Family Medical History: Cancer Mother Family Medical History: Cancer Medications and Allergies Home Medications Medication Instructions Recorded Confirmed Type Atorvastatin [Lipitor] 80 mg PO HS #30 tab 10/05/16 08/02/24 Rx Clopidogrel [Plavix] 75 mg PO DAILY 12/31/19 08/02/24 History atenoloL [Tenormin] 50 mg PO DAILY 12/31/19 08/02/24 History Cholecalciferol [Vitamin D3 (25 25 mcg PO DAILY 01/01/24 08/02/24 History Mcg = 1000 Iu)] Vit C/E/Zn/Coppr/Lutein/Zeaxan 1 cap PO BID 01/01/24 08/02/24 History [Preservision Areds 2 Softgel] Albuterol Sulfate [Albuterol 1 puff INHALATION RT-Q4H PRN 08/02/24 08/02/24 History Sulfate Hfa] Doxazosin Mesylate 8 mg PO DAILY 08/02/24 08/02/24 History Empagliflozin [Jardiance] 25 mg PO DAILY 08/02/24 08/02/24 History Finasteride [Proscar] 5 mg PO DAILY 08/02/24 08/02/24 History LORazepam [Ativan] 1 mg PO BID PRN 08/02/24 08/02/24 History Mupirocin 2% Oint [Bactroban 2% 1 applic TOPICAL HS 08/02/24 08/02/24 History Oint] metroNIDAZOLE 0.75% CREAM 1 applic TOPICAL DAILY 08/02/24 08/02/24 History [Metrocream 0.75%] Allergies Allergy/AdvReac Type Severity Reaction Status Date / Time ciprofloxacin Allergy Unknown Unknown Verified 08/02/24 15:07 Sulfa (Sulfonamide AdvReac Severe Seizure Verified 08/02/24 15:07 Antibiotics) tramadol [From Ultram] AdvReac Unknown Nausea Verified 08/02/24 15:07 acetaminophen [From [place]] AdvReac Nausea Verified 08/02/24 15:07 hydrocodone [From [place]] AdvReac Nausea Verified 08/02/24 15:07 Physical Exam Vitals: Vital Signs Temp Pulse Resp BP Pulse Ox 08/02/24 11:23 71 18 147/77 98 08/02/24 10:40 97.8 F 77 18 155/74 95 Intake and Output 08/01/24 08/02/24 08/02/24 22:59 06:59 14:59 Other: Weight 90.718 kg Results CBC & Chem 7: 08/02/24 11:44 08/02/24 11:44 Labs: Abnormal Lab Results - Last 24 Hours (Table) 08/02/24 08/02/24 Range/Units 11:44 11:44 RDW 16.2 H (11.5-15.5) % Potassium 5.3 H (3.5-5.1) mmol/L BUN 30 H (9-20) mg/dL Creatinine 1.78 H (0.66-1.25) mg/dL Glucose 329 H (74-99) mg/dL Alkaline Phosphatase 153 H (38-126) U/L Creatine Kinase 41 L (55-170) U/L
[2024-08-02 17:30] LABS: Glucose,Whole Blood 277 mg/dL (70-110)
[2024-08-02] MEDS: INSULIN LISPRO (HumaLOG) 100 UNIT/ML 10 mL VL SQ SCH ×2 (17:49→17:54)
--- NOTE | 2024-08-02 19:20 | US ---
EXAMINATION TYPE: US carotid duplex BILAT DATE OF EXAM: 08/02/2024 COMPARISON: NONE CLINICAL INDICATION: Male, 74 years old with history of CVA; possible CVA Additional History: .... TECHNIQUE: Grayscale, color Doppler and spectral Doppler evaluation of the bilateral carotid systems and vertebral arteries. Indirect Doppler criteria was utilized. FINDINGS: EXAM MEASUREMENTS: RIGHT: Peak Systolic Velocity (PSV) cm/sec ----- Right CCA: 65.1 ----- Right ICA: 76.6 ----- Right ECA: 153 ICA/CCA ratio: 1.2 RIGHT: End Diastole cm/sec ----- Right CCA: 10.1 ----- Right ICA: 15.5 ----- Right ECA: 12.0 LEFT: Peak Systolic Velocity (PSV) cm/sec ----- Left CCA: 76.0 ----- Left ICA: 119 ----- Left ECA: 1.1 ICA/CCA ratio: 1.6 LEFT: End Diastole cm/sec ----- Left CCA: 13.7 ----- Left ICA: 33.5 ----- Left ECA: 12.1 VERTEBRALS (direction of flow): Right Vertebral: Antegrade Left Vertebral: not visualized Rhythm: Normal FUR BLOWER NOTES: Mild atherosclerotic, no significant stenosis or velocity elevations. Exam very limited by shadowing, deep course of vessels, and significant movement with respiration res ulting in doppler artifact and difficulty obtaining waveforms Color Doppler imaging shows patency with blood flow throughout the carotid artery. Spectral waveforms are within normal limits. IMPRESSION: Limited examination without evidence for hemodynamically significant stenosis. Criteria for Assigning % of Stenosis / Diameter reduction (Estimation based on the indirect measurements of the internal carotid artery velocities (ICA PSV). 1. Normal (no stenosis)=ICA PSV < 125 cm/s: ratio < 2.0: ICA EDV<40 cm/s. 2. Less than 50% stenosis=ICA PSV < 125 cm/s: ratio < 2.0: ICA EDV<40 cm/s. 3. 50 to 69% stenosis=ICA PSV of 125 to 230 cm/s: ration 2.0 ? 4.0: ICA EDV 40-100 cm/s. 4. Greater than 70% stenosis to near occlusion= ICA PSV > 230 cm/s: ratio > 4.0: ICA EDV > 100 cm/s. 5. Near occlusion= ICA PSV velocities may be low or undetectable: variable ratio and ICA EDV. 6. Total occlusion=unable to detect flow. [facility], , 08/02/2024 7:17 PM
[2024-08-02 21:30] LABS: Glucose,Whole Blood 248 mg/dL (70-110)
[2024-08-02] MEDS: ATORVASTATIN 80 MG TAB PO SCH (21:51)
[2024-08-02] MEDS: LORazepam 1 MG TAB PO PRN (21:51)
[2024-08-02] MEDS: INSULIN GLARGINE (LANTUS) 100 UNIT/ML SYR SQ SCH (21:53)
[2024-08-03 06:37] LABS: Basophils % (A) 0 %; Eosinophils # (A) 0.3 k/uL (0-0.7); Eosinophils % (A) 3 %; HCT 43.3 % (39.0-53.0); HGB 13.8 gm/dL (13.0-17.5); Hypochromasia Slight; Lymphocytes # (A) 2.5 k/uL (1.0-4.8); Lymphocytes % (A) 23 %; MCV 87.5 fL (80.0-100.0); Mean Platelet Volume 6.7; Monocytes # (A) 0.5 k/uL (0-1.0); Monocytes % (A) 4 %; Neutrophils # (A) 7.4 k/uL (1.3-7.7); Neutrophils % (A) 69 %; Platelet Count 198 k/uL (150-450); RBC 4.95 m/uL (4.30-5.90); WBC 10.7 k/uL (3.8-10.6)
[2024-08-03 06:56] LABS: African American GFR (CKD) 47 (>60 ml/min/1.73 sqM); Anion Gap 5 mmol/L; Blood Urea Nitrogen 27 mg/dL (9-20); Calcium 9.7 mg/dL (8.4-10.2); Carbon Dioxide 27 mmol/L (22-30); Chloride 107 mmol/L (98-107); Glucose 223 mg/dL (74-99); Non-African American GFR(CKD) 41 (>60 ml/min/1.73 sqM); Potassium 4.8 mmol/L (3.5-5.1); Sodium 139 mmol/L (137-145)
[2024-08-03 08:46] LABS: Glucose,Whole Blood 203 mg/dL (70-110)
[2024-08-03] MEDS: NICOTINE 21MG/24HR PATCH TRANSDERM SCH (09:00)
[2024-08-03] MEDS ORDERED: ASPIRIN 325 MG TAB PO SCH (09:00)
[2024-08-03] MEDS: FINASTERIDE 5 MG TAB PO SCH (09:01)
[2024-08-03] MEDS: DOXAZOSIN 4 MG TAB PO SCH (09:01)
[2024-08-03] MEDS: ASPIRIN 81 MG PO SCH (09:01)
[2024-08-03] MEDS: atenoloL 50 MG TAB PO SCH (09:01)
[2024-08-03] MEDS: PANTOPRAZOLE 40 MG TABLET PO SCH (09:01)
[2024-08-03 10:08] LABS: Chol/HDL Ratio 3.64 Ratio
[2024-08-03 11:26] LABS: Glucose,Whole Blood 236 mg/dL (70-110)
[2024-08-03] MEDS: INSULIN LISPRO (HumaLOG) 100 UNIT/ML 10 mL VL SQ SCH (12:06)
--- NOTE | 2024-08-03 13:07 | P.PN ---
Subjective Progress Note Date: 08/03/24 Hospital Course: 74-year-old man with PMH of hypertension, hyperlipidemia, diabetes mellitus, h istory of [place] in 2017 with multiple stents placed (follows with Dr. Bee), CKD stage IIIb with baseline creatinine 1.71.8, active smoker 60 pack year. Presented to the Emergency Department with 3-5 day history of left leg weakness. His significant other, in the room with him, states it began Sunday when she noticed he was struggling to walk. He reports it came on suddenly and has noticed difficulty ambulating. He denies any associated pain in the upper back. Additionally, he notes some weakness of his left upper extremity however not as pronounced. Denies any numbness, tingling, speech deficit, facial droop. He does endorse having a mild headache. He has no history of stroke. Labratory review: -WBCs 9.8, hemoglobin 14.8, hematocrit 46.8, platelet 209; sodium 140, potassium 5.3, chloride 105, BUN 30, creatinine 1.78, glucose 329, calcium 9.8, total bilirubin 0.8, AST 23, ALT 30, alkaline phosphatase 153; troponin <0.012 Imaging: -Chest x-ray done in the ER independently interpreted shows no acute cardiopulmonary process -CT brain shows no acute bleed or mass effect, with remote infarct involving the right temporoparietal region -CT thoracic/lumbar spine showed no significant abnormality -Hip/pelvis x-ray shows no acute fracture or dislocation of the pelvis or left hip Patient admitted to internal medicine service for concern for CVA 08/03: Carotid ultrasound was poor quality but did not show any hemodynamically significant stenosis. Patient continues to complain of left lower extremity weakness, otherwise no new complaints. Pending brain MRI and TTE. Patient s tated that he would like to be discharged, we discussed that he has to be evaluated by neurology, complete brain MRI, TTE, to have a safe plan for discharge, he understands that imaging will be completed tomorrow and he agrees to stay Pertinent Imaging: Carotid ultrasound as above Pertinent positives and negatives as discussed above, a complete review of systems was performed and all other systems are negative. Vitals Signs Reviewed. General: nontoxic, no distress, appears at stated age Derm: warm, dry, intact Head: atraumatic, normocephalic, symmetric Eyes: EOMI, anicteric sclera Mouth: no lip lesion, mucus membranes moist Cardiovascular: S1 S2 reg, no murmur, rubs, or gallops Lungs: CTA bilateral, no rales, no accessory muscle use Abdominal: soft, non-tender to palpataion, no appreciable organomegaly Extremities: no gross muscle atrophy, no edema, no contractures Neuro: Alert, Oriented, CNII-XII grossly intact, gait normal; strength of right lower extremity 5/5, left lower extremity 34/5 strength greater in the proximal muscles Psych: well appearing, appropriate affect] Data Reviewed Today: Pertinent Labs: Sodium and potassium normal, creatinine stable 1.65, glucose 226, A1c 9.9, LDL 14.0, TSH normal 2.4 Assessment and Plan: Acute onset left lower extremity weakness, with evidence of remote infarct involving the right temporal parietal region on CT brain, CVA rule out -CT brain completed, showing remote infarct involving the right temporoparietal region -Brain MRI ordered, currently pending -Bilateral carotid duplex ultrasound ordered, poor quality but no hemodynamically significant stenosis -Echocardiogram ordered, currently pending -Lipid panel ordered, currently pending -Hemoglobin A1c ordered, currently pending -TSH ordered, currently pending -NIH score of 0 -Initiate 81 mg aspirin daily and Plavix 75 mg daily; Plan for 21 days of Plavix and Aspirin indefinitely, added protonix 40 PO daily for GI prophylaxis -Continue home Lipitor 80 mg nightly -Continue neurochecks -Neurology consulted -Physical therapy, speech therapy, Occupational Therapy consulted Diabetes mellitus type 2 not on insulin, uncontrolled -Accu-Cheks ACHS -Insulin adjusted: Lantus increased to 15 units nightly, mealtime 6 units 3 times daily -Sliding scale -Monitor for hypoglycemia CKD stage IIIb, with baseline creatinine 1.71.8 -Avoid nephrotoxic agents -Monitor BMP Hypertension -Resumed home atenolol 50 mg daily -Continue to monitor vital signs Hyperlipidemia -Restarted home 80 mg Lipitor -LDL at goal, continue current dose Nicotine dependence -Nicotine 21 mg/24-hour patch daily -Discussed and advised the patient the importance of smoking cessation BPH -resume home finasteride 5 mg, doxazosin 8 mg PO daily , patient to follow up with PCP or urology for optimization of therapy, currently on beta blockers for HTN as well DVT prophylaxis: Heparin 5000 units SQ every 8 hours CODE STATUS: Full code Discussed with: Patient Anticipated discharge place: Pending clinical course Objective - Vital Signs Vital signs: Vital Signs Temp 98.2 F 08/03/24 12:00 Pulse 64 08/03/24 12:00 Resp 15 08/03/24 12:00 BP 134/69 08/03/24 12:00 Pulse Ox 94 L 08/03/24 12:00 FiO2 Intake & Output 08/02/24 08/03/24 08/03/24 18:59 06:59 18:59 Weight 90.718 kg - Labs CBC & Chem 7: 08/03/24 05:57 08/03/24 05:57 Labs: Abnormal Lab Results - Last 24 Hours (Table) 08/02/24 08/02/24 08/03/24 Range/Units 17:28 21:28 05:57 WBC (3.8-10.6) k/uL RDW (11.5-15.5) % BUN (9-20) mg/dL Creatinine (0.66-1.25) mg/dL Glucose (74-99) mg/dL POC Glucose (mg/dL) 277 H 248 H (70-110) mg/dL Hemoglobin A1c 9.9 H (<=6.0) % Triglycerides (0.00-149.00) mg/dL VLDL Cholesterol, Calc (5.00-40.00) mg/dL HDL Cholesterol (40.00-60.00) mg/dL 08/03/24 08/03/24 08/03/24 Range/Units 05:57 05:57 05:57 WBC 10.7 H (3.8-10.6) k/uL RDW 16.0 H (11.5-15.5) % BUN 27 H (9-20) mg/dL Creatinine 1.65 H (0.66-1.25) mg/dL Glucose 223 H (74-99) mg/dL POC Glucose (mg/dL) (70-110) mg/dL Hemoglobin A1c (<=6.0) % Triglycerides 278.00 H (0.00-149.00) mg/dL VLDL Cholesterol, Calc 55.60 H (5.00-40.00) mg/dL HDL Cholesterol 26.40 L (40.00-60.00) mg/dL 08/03/24 08/03/24 Range/Units 08:44 11:24 WBC (3.8-10.6) k/uL RDW (11.5-15.5) % BUN (9-20) mg/dL Creatinine (0.66-1.25) mg/dL Glucose (74-99) mg/dL POC Glucose (mg/dL) 203 H 236 H (70-110) mg/dL Hemoglobin A1c (<=6.0) % Triglycerides (0.00-149.00) mg/dL VLDL Cholesterol, Calc (5.00-40.00) mg/dL HDL Cholesterol (40.00-60.00) mg/dL
--- NOTE | 2024-08-03 14:57 | P.CNNES ---
History of Present Illness Consult date: 08/03/24 Requesting physician: Ingrid Parkinson Reason for Consult: Left lower extremity weakness, possible CVA History of Present Illness: This is a telemedicine neurology consultation performed today on 08/03/2024, in collaboration with Dana Ward. Patient is a 74-year-old right-handed male with history of [place], came to the hospital yesterday at 10:39 AM for subacute weakness of the left foot and left leg. Patient states the symptoms started on 07/28/2024 when he noticed that he was dragging his left foot, and left knee was not locking when making a step and could barely walk, and was walking like a "zombie". Patient says that just going into the house was a task. Inside his home, he was using stool or fridge or other furniture to stabilize and would sit down. The same day he also noticed that while walking, his left arm was curling to the chest. He thought that the symptoms would go away. The left arm symptoms lasted a few days and has no resolved. However left leg continues to be weak. He denies any slurred speech facial droop or any visual problem. Vital signs on arrival blood pressure 155/74 pulse is an 70 vision and 7.8. Blood test shows normal CBC, PT/PTT, sodium 140 potassium 5.3, BUN 30 creatinine 1.78. Hepatic panel is normal, troponin negative. TSH normal. CT head showed no acute bleed or mass effect. Remote infarct right temporal parietal region. Mild age-appropriate atrophy. I personally reviewed CT head, agree with the findings. CT of the thoracic and lumbar spine showed no significant abnormality. X-ray of the hip and pelvis showed no acute fracture or disl ocation. EKG showed sinus rhythm. Home medications include Plavix 75 mg, Lipitor 80 mg, atenolol, vitamin D, Proscar, Jardinece, doxazosin. Patient not on aspirin at home. Patient has been smoking about 1 to 1-1/2 pack per day since 1964. Denies any alcohol use. Patient has history of tremors for 25 years. He was tried on medications for Parkinson's and some other medication she did not help. Review of Systems All pertinent positive and negative review of systems mentioned in the HPI, otherwise unremarkable. Patient's states that he has some bad memory. Past Medical History Past Medical History: Chest Pain / Angina, COPD, Diabetes Mellitus, Hyperlipidemia, Hypertension, Myocardial Infarction ([place]), Prostate Disorder Additional Past Medical History / Comment(s): arrhythmia, seizures as child, BPH, migraines, abdominal hernia, cysts on kidneys, hx. colon polyps, type II diabetes, essential tremor Last Myocardial Infarction Date:: 2016 History of Any Multi-Drug Resistant Organisms: None Reported Past Surgical History: Bowel Resection, Cholecystectomy, Heart Catheterization With Stent, Tonsillectomy Additional Past Surgical History / Comment(s): prostate biopsy, colonoscopy, bowel resection 2022 Past Anesthesia/Blood Transfusion Reactions: No Reported Reaction Date of Last Stent Placement:: 2016 Past Psychological History: Anxiety Smoking Status: Current every day smoker Past Alcohol Use History: None Reported Past Drug Use History: None Reported - Past Family History Father Family Medical History: Cancer Mother Family Medical History: Cancer Medications and Allergies Home Medications Medication Instructions Recorded Confirmed Type Atorvastatin [Lipitor] 80 mg PO HS #30 tab 10/05/16 08/02/24 Rx Clopidogrel [Plavix] 75 mg PO DAILY 12/31/19 08/02/24 History atenoloL [Tenormin] 50 mg PO DAILY 12/31/19 08/02/24 History Cholecalciferol [Vitamin D3 (25 25 mcg PO DAILY 01/01/24 08/02/24 History Mcg = 1000 Iu)] Vit C/E/Zn/Coppr/Lutein/Zeaxan 1 cap PO BID 01/01/24 08/02/24 History [Preservision Areds 2 Softgel] Albuterol Sulfate [Albuterol 1 puff INHALATION RT-Q4H PRN 08/02/24 08/02/24 History Sulfate Hfa] Doxazosin Mesylate 8 mg PO DAILY 08/02/24 08/02/24 History Empagliflozin [Jardiance] 25 mg PO DAILY 08/02/24 08/02/24 History Finasteride [Proscar] 5 mg PO DAILY 08/02/24 08/02/24 History LORazepam [Ativan] 1 mg PO BID PRN 08/02/24 08/02/24 History Mupirocin 2% Oint [Bactroban 2% 1 applic TOPICAL HS 08/02/24 08/02/24 History Oint] metroNIDAZOLE 0.75% CREAM 1 applic TOPICAL DAILY 08/02/24 08/02/24 History [Metrocream 0.75%] Allergies Allergy/AdvReac Type Severity Reaction Status Date / Time ciprofloxacin Allergy Unknown Unknown Verified 08/02/24 15:07 Sulfa (Sulfonamide AdvReac Severe Seizure Verified 08/02/24 15:07 Antibiotics) tramadol [From Ultram] AdvReac Unknown Nausea Verified 08/02/24 15:07 acetaminophen [From [place]] AdvReac Nausea Verified 08/02/24 15:07 hydrocodone [From [place]] AdvReac Nausea Verified 08/02/24 15:07 Physical Examination - Vital Signs Vital Signs: Vital Signs Temp Pulse Pulse Resp BP BP Pulse Ox 08/03/24 12:00 98.2 F 64 15 134/69 94 L 08/03/24 08:00 98.0 F 71 16 140/61 95 08/03/24 06:00 64 16 116/69 94 L 08/03/24 04:00 61 16 120/52 94 L 08/03/24 01:00 62 16 144/58 93 L 08/02/24 21:31 98.1 F 68 154/65 94 L 08/02/24 17:50 97.7 F 68 20 137/79 96 08/02/24 15:38 64 20 142/65 96 08/02/24 14:06 65 22 134/70 98 Patient is an elderly male, in no acute distress. Patient is alert awake oriented to time place and person. He knows it is July 2024 and that he is in [facility] in [place]. Speech and language functions are normal. Patient can name and repeat very well. No aphasia or dysarthria. Attention, concentration and fund of knowledge is adequate. On cranial nerve examination, pupils are equal, round and reacting to light, visual lemon are full on confrontation, with no neglect on double simultaneous stimulation. Extraocular muscles are intact with no nystagmus. Face is symmetric, tongue protrudes to the midline. Palatal elevation and sensation normal, hearing and shoulder shrug normal, facial sensation normal. On muscle strength testing, there is no pronator drift and the strength is yoshi l in arms and legs distally and proximally. Deep tendon reflexes are symmetric 2 at the biceps, 3 at the knees and plantars are flat. Sensory to touch is equal with no neglect on double simultaneous stimulation. Cerebellar function showed moderate tremulousness, but no ataxia for [id number] testing bilaterally. No dysdiadochokinesia. No ataxia for [id number] testing on either side. Tone and bulk of muscles normal. Gait deferred.. On general examination, there is no carotid bruit or murmur, S1-S2 audible. Chest is clear on consultation. Abdomen is soft nontender. No organomegaly, bowel sounds present. Peripheral pulses are present. No peripheral edema. Results - Laboratory Findings CBC and BMP: 08/03/24 05:57 08/03/24 05:57 Abnormal Lab Findings: Abnormal Labs 08/02/24 08/02/24 08/02/24 11:44 11:44 17:28 WBC RDW 16.2 H Potassium 5.3 H BUN 30 H Creatinine 1.78 H Glucose 329 H POC Glucose (mg/dL) 277 H Hemoglobin A1c Alkaline Phosphatase 153 H Creatine Kinase 41 L Triglycerides VLDL Cholesterol, Calc HDL Cholesterol 08/02/24 08/03/24 08/03/24 21:28 05:57 05:57 WBC RDW Potassium BUN Creatinine Glucose POC Glucose (mg/dL) 248 H Hemoglobin A1c 9.9 H Alkaline Phosphatase Creatine Kinase Triglycerides 278.00 H VLDL Cholesterol, Calc 55.60 H HDL Cholesterol 26.40 L 08/03/24 08/03/24 08/03/24 05:57 05:57 08:44 WBC 10.7 H RDW 16.0 H Potassium BUN 27 H Creatinine 1.65 H Glucose 223 H POC Glucose (mg/dL) 203 H Hemoglobin A1c Alkaline Phosphatase Creatine Kinase Triglycerides VLDL Cholesterol, Calc HDL Cholesterol 08/03/24 11:24 WBC RDW Potassium BUN Creatinine Glucose POC Glucose (mg/dL) 236 H Hemoglobin A1c Alkaline Phosphatase Creatine Kinase Triglycerides VLDL Cholesterol, Calc HDL Cholesterol Assessment and Plan Assessment: * Possible CVA manifesting with left leg weakness. Symptoms have improved, but he still has difficulty with walking. Current NIH stroke scale was 0. * Diabetes, poorly controlled * Hyperlipidemia, controlled * Mild renal insufficiency * Hypertension * Tobacco use * Coronary artery disease, history of [place] * Essential tremor Plan: * Patient will undergo stroke/TIA workup. * MRI of the brain without contrast, evaluate for acute CVA * 2-D echo with bubble study to rule out PFO * Carotid Doppler, revealed limited examination without evidence of hemodynamically significant stenosis. Antegrade flow right vertebral artery, left vertebral artery not visualized. * MRA of the head, rule out stenosis * Fasting a.m. lipid panel cholesterol 96, LDL 14, HDL 26 and triglycerides 278. Continue Lipitor 80 mg daily (home dose). * Hemoglobin A1c 9.9. Recommend optimize control of diabetes to target A1c < 7.0. * Permissive hypertension for next 24-48 hours * Continue Plavix 75 mg daily. Agree with adding aspirin 81 mg daily. * Neuro checks every 4 hours. * Telemetry monitoring rule out any arrhythmia * PT, OT, speech therapy * Recommend complete tobacco cessation. * DVT prophylaxis: Heparin 5000 units subcu every 8 hours * Neurology will continue to follow. Thank you for the consult. Time with Patient: Greater than 30
[2024-08-03 16:59] LABS: Glucose,Whole Blood 231 mg/dL (70-110)
[2024-08-03 20:10] LABS: Glucose,Whole Blood 246 mg/dL (70-110)
[2024-08-03] MEDS: INSULIN GLARGINE (LANTUS) 100 UNIT/ML SYR SQ SCH (20:15)
[2024-08-04 06:11] LABS: Glucose,Whole Blood 212 mg/dL (70-110)
[2024-08-04 11:37] LABS: Glucose,Whole Blood 146 mg/dL (70-110)
[2024-08-04 12:21] VITALS: BMI 29.2
[2024-08-04] MEDS: INSULIN LISPRO (HumaLOG) 100 UNIT/ML 10 mL VL SQ SCH (13:13)
--- NOTE | 2024-08-04 16:11 | MR ---
EXAMINATION TYPE: MR angio head wo con DATE OF EXAM: 08/04/2024 3:50 PM COMPARISON: MRI brain same day. CT. CLINICAL INDICATION: Male, 74 years old with history of cva; PHH, CVA. TECHNIQUE: 3-D [id number] Axial with MIP reconstruction created on a separate workstation.. IV Contrast: mL (None, if empty) FINDINGS: Encephalomalacia of the right occipital parietal region. Vertebral arteries: The vertebral arteries are patent. The right vertebral artery appears to terminat e as the posterior inferior cerebellar artery Vertebral arteries are: Left Basilar artery: The basilar artery is intact. The basilar artery bifurcation is normal. Internal Carotid arteries: The cervical, petrous, cavernous and supraclinoid segments are normal. JORDYN: Patent with no evidence of aneurysm. ACOM: Present without evidence of aneurysm. MCA: Patent with no evidence of aneurysm. 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 Patent with no evidence of aneur ysm. PCOM: origins of the posterior cerebellar arteries bilaterally. IMPRESSION: No evidence of aneurysm or significant stenosis. [facility], , 08/04/2024 4:09 PM
--- NOTE | 2024-08-04 16:15 | MR ---
EXAMINATION TYPE: MR brain wo con DATE OF EXAM: 08/04/2024 3:58 PM COMPARISON: CT/MRI. CLINICAL INDICATION: Male, 74 years old with history of CVA, CVA. TECHNIQUE: Multi planar, multi sequence imaging was performed through the brain including: T1, T2, In version recovery, Diffusion weighted imaging, and gradient echo imaging. No gadolinium was given. FINDINGS: Restricted diffusion within the posterior right frontal lobe. In the left posterior frontal lobe there is a focus of high DWI signal with some lower ADC signal along the edge a series 305 imag e 188 and ADC imaging. Subtle malacia of the right parietal region from prior injury. Left frontal lo be periventricular injury with surrounding gliosis series 601 image 24. Left ophthalmic probable bernadette te injury image 18 series 601. Additionally Scattered foci of high T2 signal intensity are seen with in the periventricular white matter. Midline structures show no abnormality. The susceptibility weig hted images demonstrate echogenic hemorrhage in the area of prior injury in the right parietal region . Scattered foci of microhemorrhage throughout the brain noted worse in the left temporal lobe. The bone marrow signal is within normal limits. Paranasal sinuses and mastoid air cells: No significant paranasal sinus disease. Visualized orbits: Orbital contents are intact. IMPRESSION: 1. No acute/subacute CVA involving the right posterior frontal lobe. 2. Questionable area of infarct in the posterior left frontal lobe 3. Additional scattered remote injuries and Nonspecific white matter changes, likely secondary to sma ll vessel ischemic disease. [facility], , 08/04/2024 4:13 PM
[2024-08-04 16:27] LABS: Glucose,Whole Blood 169 mg/dL (70-110)
--- NOTE | 2024-08-04 17:54 | P.PN ---
Subjective Progress Note Date: 08/04/24 74-year-old man with PMH of hypertension, hyperlipidemia, diabetes mellitus, history of [place] in 2017 with multiple stents placed (follows with Dr. Bee), CKD stage IIIb with baseline creatinine 1.71.8, active smoker [id number]. Presented to the Emergency Department with 3-5 day history of left leg weakness. His significant other, in the room with him, states it began Sunday when she noticed he was struggling to walk. He reports it came on suddenly and has noticed difficulty ambulating. He denies any associated pain in the upper back. Additionally, he notes some weakness of his left upper extremity however not as pronounced. Denies any numbness, tingling, speech deficit, facial droop. He does endorse having a mild headache. He has no history of stroke. 08/03 - Carotid ultrasound was poor quality but did not show any hemodynamically significant stenosis. Patient continues to complain of left lower extremity weakness, otherwise no new complaints. Pending brain MRI and TTE. Patient stated that he would like to be discharged, we discussed that he has to be evaluated by neurology, complete brain MRI, TTE, to have a safe plan for discharge, he understands that imaging will be completed tomorrow and he agrees to stay 08/04 - He was seen and examined at bedside this morning. States he is feeling better and ready to go. Underwent his echocardiogram this morning, awaiting for the official read to be made. He is scheduled to go for his brain MRI and brain MRA later this afternoon. He has no acute complaints at this time. He is very anxious to go home as he states that he has business to attend to. Discussed with him the importance of having the 3 imaging studies today read and evaluated prior to discharge. Possibly later today, if each of them have been read and reviewed however that may not occur, which he acknowledged. REVIEW OF SYSTEMS: Pertinent positives and negatives noted in HPI. Physical Exam: General: nontoxic, no distress, appears at stated age Derm: warm, dry, intact Head: atraumatic, normocephalic, symmetric Eyes: EOMI, anicteric sclera Mouth: no lip lesion, mucus membranes moist Cardiovascular: S1 S2 reg, no murmur, rubs, or gallops Lungs: CTA bilateral, no rales, no accessory muscle use Abdominal: soft, non-tender to palpataion, no appreciable organomegaly Extremities: no gross muscle atrophy, no edema, no contractures Neuro: Alert, Oriented, CNII-XII grossly intact, gait normal; strength of right lower extremity 5/5, left lower extremity 34/5 strength greater in the proximal muscles Psych: well appearing, appropriate affect Data Received Today: Labs: None new today Imagining: Pending brain MRI, brain MRI and echocardiogram. Assessment and plan 74-year-old man with PMH of hypertension, hyperlipidemia, diabetes mellitus, history of [place] in 2017 with multiple stents placed (follows with Dr. Bee), CKD stage IIIb with baseline creatinine 1.71.8. Presented to the Emergency Department with 3-5 day history of left leg weakness. #Acute onset left lower extremity weakness, with evidence of remote infarct involving the right temporal parietal region on CT brain, CVA rule out -Brain MRI ordered, currently pending -MRA of the brain -Echocardiogram ordered, currently pending -Lipid panel revealed triglyceride 278, cholesterol 96, LDL 14, VLDL (calculated) 55.60, HDL 26.40 -Hemoglobin A1c 9.9 -TSH 2.470 -NIH score of 0 -Initiate 81 mg aspirin daily and Plavix 75 mg daily; Plan for 21 days of Plavix and Aspirin indefinitely, Protonix 40 mg p.o. daily for GI prophylaxis -Continue home Lipitor 80 mg nightly -Continue neurochecks -Neurology consulted -Physical therapy, speech therapy, Occupational Therapy consulted #Diabetes mellitus type II not on insulin -Accu-Cheks ACHS -Lantus 20 units nightly -Humalog 8 units 3 times daily with meals -Sliding scale -Monitor for hypoglycemia #CKD stage IIIb, with baseline creatinine 1.71.8 -Avoid nephrotoxic agents -Monitor BMP #Hypertension -Resumed home atenolol 50 mg daily -Continue to monitor vital signs #Hyperlipidemia -Restarted home 80 mg Lipitor -Lipid panel ordered, currently pending #Nicotine dependence -Nicotine 21 mg/24-hour patch daily -Discussed and advised the patient the importance of smoking cessation #BPH -Resume home finasteride 5 mg daily, doxazosin 8 mg p.o. daily, patient follow- up with PCP or urology for optimization of therapy, currently on beta-heather for hypertension as well DVT ppx: Heparin 5000 units subcu every 12 hours GI prophylaxis: Protonix 40 mg p.o. daily Code status: Full code F: None E: Replete as needed N: Heart healthy diet, carbohydrate consistent A: Ambulatory Anticipated discharge place: Home Anticipated discharge time: 24-48 hours Dictation was produced using [employer] dictation software. please excuse any grammatical, word or spelling errors. Satish Garcia MD PGY-1 IM I have seen and evaluated the patient today. Discussed with the resident and agree with the residents finding and plan as documented in the resident's note. Changes highlighted in blue font. Objective - Vital Signs Vital signs: Vital Signs Temp 98.2 F 08/04/24 08:00 Pulse 68 08/04/24 08:00 Resp 17 08/04/24 08:00 BP 131/76 08/04/24 08:00 Pulse Ox 95 08/04/24 08:00 FiO2 Intake & Output 08/03/24 08/04/24 08/04/24 18:59 06:59 18:59 Output Total 300 Balance -300 Weight 90 kg Output: Urine 300 Other: Voiding Method Urinal Urinal - Labs CBC & Chem 7: 08/03/24 05:57 08/03/24 05:57 Labs: Abnormal Lab Results - Last 24 Hours (Table) 08/03/24 08/03/24 08/04/24 Range/Units 16:58 20:09 06:10 POC Glucose (mg/dL) 231 H 246 H 212 H (70-110) mg/dL 08/04/24 Range/Units 11:33 POC Glucose (mg/dL) 146 H (70-110) mg/dL
--- NOTE | 2024-08-04 18:36 | CA ---
Transthoracic Echo Report Name: Kavon Bellamy Age: 74 Gender: M : 1950 Exam Date: 08/04/2024 07:42 Exam Location: [place] [facility] Ht (in): 69 Wt (lb): 200 Ordering Physician: Ingrid Parkinson DO Attending/Referring Phys: [id number], [employer] Manager Cathy Smalls, [facility] Procedure CPT: Indications: Thrombus Cardiac Hx: Technical Quality: Fair Contrast 1: Total Dose (mL): Contrast 2: Total Dose (mL): MEASUREMENTS (Male / Female) Normal Values 2D ECHO LV Diastolic Diameter PLAX 4.1 cm 4.2 - 5.9 / 3.9 - 5.3 cm LV Systolic Diameter PLAX 3.0 cm IVS Diastolic Thickness 1.5 cm 0.6 - 1.0 / 0.6 - 0.9 cm LVPW Diastolic Thickness 1.6 cm 0.6 - 1.0 / 0.6 - 0.9 cm LV Relative Wall Thickness 0.8 RV Internal Dim ED PLAX 2.8 cm LVOT Diameter 2.2 cm LA Systolic Diameter LX 4.2 cm 3.0 - 4.0 / 2.7 - 3.8 cm LV Diastolic Volume MOD BP 59.1 cm??? 67 - 155 / 56 - 104 cm??? LV Systolic Volume MOD BP 20.2 cm??? 22 - 58 / 19 - 49 cm??? LV Ejection Fraction MOD BP 65.8 % >= 55 % LV Cardiac Index MOD BP 1225.4 cm???/min???m??? LV Diastolic Volume MOD 4C 66.3 cm??? LV Systolic Volume MOD 4C 21.2 cm??? LV Ejection Fraction MOD 4C 68.0 % LV Cardiac Index MOD 4C 1423.5 cm???/min???m??? LV Diastolic Length 4C 7.6 cm LV Systolic Length 4C 6.9 cm LV Diastolic Volume MOD 2C 50.3 cm??? LV Systolic Volume MOD 2C 18.2 cm??? LV Ejection Fraction MOD 2C 63.7 % LV Cardiac Index MOD 2C 1009.6 cm???/min???m??? LV Diastolic Length 2C 8.0 cm LV Systolic Length 2C 6.3 cm LA Volume 51.2 cm??? 18 - 58 / 22 - 52 cm??? LA Volume Index 24.1 cm???/m??? 16 - 28 cm???/m??? M-MODE Aortic Root Diameter MM 3.1 cm LA Systolic Diameter MM 3.9 cm LA Ao Ratio MM 1.3 AV Cusp Separation MM 2.4 cm DOPPLER MV Area PHT 2.3 cm??? Mitral E Point Velocity 58.2 cm/s Mitral A Point Velocity 82.4 cm/s Mitral E to A Ratio 0.7 MV Deceleration Time 329.2 ms FINDINGS Left Ventricle Left ventricular ejection fraction is estimated at 55-60 %. Moderately increased septal wall thickness. Normal left ventricular systolic function with no obvious regional wall motion abnormalities. Left ventricular cavity size normal. Right Ventricle Mild right ventricular dilatation. Unable to estimate the right ventricular systolic pressure. Right Atrium Normal right atrial size. Left Atrium Mildly increased left atrial diameter. Mitral Valve Structurally normal mitral valve. Trace mitral regurgitation. No mitral stenosis. Aortic Valve Trileaflet aortic valve. No aortic valve stenosis or regurgitation. Tricuspid Valve Structurally normal tricuspid valve. Trace to mild tricuspid regurgitation. Pulmonic Valve Structurally normal pulmonic valve. Trace pulmonic regurgitation. No pulmonic stenosis. Pericardium No pericardial or pleural effusion. Aorta Normal size aortic root and proximal ascending aorta. CONCLUSIONS Indication: Neurologic symptoms, evaluate for intracardiac mass or thrombus LVH with preserved systolic function No intracardiac masses noted Previewed by: Dr. Steve Gonsalez MD (Electronically Signed) Final Date: 04 August 2024 18:36
[2024-08-04 19:51] LABS: Glucose,Whole Blood 143 mg/dL (70-110)
[2024-08-04] MEDS: HEPARIN SODIUM,PORCINE 5,000 UNIT/ML 1 ML VIAL SQ SCH (20:20)
[2024-08-04] MEDS: INSULIN GLARGINE (LANTUS) 100 UNIT/ML SYR SQ SCH (20:20)
[2024-08-05 06:06] LABS: Glucose,Whole Blood 214 mg/dL (70-110)
[2024-08-05 08:19] VITALS: BP 127/102; PULSE 76; RESP 17; TEMP 97.7
--- NOTE | 2024-08-05 08:49 | P.PN ---
Subjective Progress Note Date: 08/04/24 Patient was seen for a follow-up. Patient is laying comfortably in the bed. Offers no new complaints. Patient states he is walking better. He feels back to normal. Patient's was also present, who also concurs that he is back to baseline. He states while walking "knees are locking up right, and foot working good". Objective - Vital Signs Vital signs: Vital Signs Temp 98.2 F 08/04/24 14:00 Pulse 73 08/04/24 14:00 Resp 17 08/04/24 14:00 BP 107/54 08/04/24 14:00 Pulse Ox 94 L 08/04/24 14:00 FiO2 Intake & Output 08/03/24 08/04/24 08/04/24 18:59 06:59 18:59 Output Total 300 Balance -300 Weight 90 kg 90 kg Output: Urine 300 Other: Voiding Method Urinal Urinal - Exam Patient's mental status, speech and language functions are normal. Cranial nerves are normal. Visual lemon are full, face is symmetric. On muscle strength testing, there is no pronator drift and the strength is normal in arms and legs distally and proximally. No ataxia for [id number] testing. Patient has mild to moderate tremors of outstretched hands. No tremors at rest. He has moderate tremors for [id number] testing. Tone is normal. - Labs CBC & Chem 7: 08/03/24 05:57 08/03/24 05:57 Labs: Abnormal Lab Results - Last 24 Hours (Table) 08/03/24 08/03/24 08/04/24 Range/Units 16:58 20:09 06:10 POC Glucose (mg/dL) 231 H 246 H 212 H (70-110) mg/dL 08/04/24 Range/Units 11:33 POC Glucose (mg/dL) 146 H (70-110) mg/dL Assessment and Plan Assessment: * Acute CVA manifesting with left leg weakness. Symptoms have improved, and feels back to baseline. Current NIH stroke scale is 0. * Diabetes, poorly controlled * Hyperlipidemia, controlled * Mild renal insufficiency * Hypertension * Tobacco use * Coronary artery disease, history of CA * Essential tremor Plan: * Patient undergoing stroke/TIA workup. * MRI of the brain without contrast, evaluate for acute CVA, still pending. * 2-D echo with bubble study to rule out PFO, still pending * Carotid Doppler, revealed limited examination without evidence of hemodynamically significant stenosis. Antegrade flow right vertebral artery, left vertebral artery not visualized. * MRA of the head, rule out stenosis, still pending * Fasting a.m. lipid panel cholesterol 96, LDL 14, HDL 26 and triglycerides 278. Continue Lipitor 80 mg daily (home dose). * Hemoglobin A1c 9.9. Recommend optimize control of diabetes to target A1c < 7.0. * Optimize control of blood pressure normotensive levels. * Continue Plavix 75 mg daily. Agree with adding aspirin 81 mg daily. * Event monitoring for 30 days, rule out paroxysmal atrial fibrillation. * Neuro checks every 4 hours. * Telemetry monitoring rule out any arrhythmia * PT, OT, speech therapy * Recommend complete tobacco cessation. * DVT prophylaxis: Heparin 5000 units subcu every 8 hours * Patient wants to go home. If the MRI and 2-D echo comes back negative, then we'll be clear for discharge. Discussed with patient's nurse.
--- NOTE | 2024-08-05 10:56 | P.DS ---
Providers Date of admission: 08/02/24 13:14 Expected date of discharge: 08/05/24 Attending physician: Huma Monteiro MD Consults: 08/02/24 13:14 Consult Physician Routine Consulting Provider: Gold Peñaloza Consult Reason/Comments: lle weakness, possible cva Do you want consulting provider notified?: Yes Primary care physician: Sae Fabian Hospital Course: Discharge diagnoses; #Acute/subacute right posterior frontal lobe infarct, and additional questionable posterior left frontal lobe infarct #Diabetes mellitus type II not on insulin #CKD stage IIIb, with baseline creatinine 1.71.8 #Hypertension #Hyperlipidemia #Nicotine dependence #BPH Hospital course; 74-year-old man with PMH of hypertension, hyperlipidemia, diabetes mellitus, 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 Bee), CKD stage IIIb with baseline creatinine 1.71.8, active smoker [id number]. Presented to the Emergency Department with 3-5 day history of left leg weakness. During his stay he underwent a bilateral carotid duplex ultrasound which was of poor quality with did not show any hemodynamically significant stenosis, a brain CT which showed no acute bleed or mass effect. He underwent an echocardiogram which showed the ventricular ejection fraction estimated to be 55 to 60%. MRA of the head was completed which showed no evidence of aneurysm or significant stenosis. Brain MRI showed acute/subacute CVA involving the right posterior frontal lobe, questionable area of infarct in the posterior left frontal lobe, additional scattered remote injuries and nonspecific white matter changes, likely secondary to small vessel ischemic disease he was also followed by neurology during his stay. He continues to endorse persistent left lower extremity weakness, without any changes throughout the duration of his stay however feels it has been improving. Discussed the importance of adherence to his medication regimen upon discharge, and the importance of follow-up as an outpatient with neurology for further evaluation. Additionally, he will be discharged with 2 new medications regarding his CVA as well as insulin for his uncontrolled diabetes. He also will be sent home with an event monitor which to be worn for 30 days. Additionally discussed with him the importance of continued follow-up with his primary care physician as well as neurology. And discussed the possibility that he may need an additional echocardiogram and follow-up with cardiology down the line. He verbalized understanding and he is very excited to be discharged today. Physical Exam: General: nontoxic, no distress, appears at stated age Derm: warm, dry, intact Head: atraumatic, normocephalic, symmetric Eyes: EOMI, anicteric sclera Mouth: no lip lesion, mucus membranes moist Cardiovascular: S1 S2 reg, no murmur, rubs, or gallops Lungs: CTA bilateral, no rales, no accessory muscle use Abdominal: soft, non-tender to palpataion, no appreciable organomegaly Extremities: no gross muscle atrophy, no edema, no contractures Neuro: Alert, Oriented, CNII-XII grossly intact, gait normal; strength of right lower extremity 5/5, left lower extremity 4/5 strength greater in the proximal muscles, improving Psych: well appearing, appropriate affect Dictation was produced using [employer] dictation software. please excuse any grammatical, word or spelling errors. Satish Garcia MD PGY-1 IM A total of 38 minutes of time were spent preparing this complex discharge summary. Patient was discharged on 08/05/24 at 916. I have seen and evaluated the patient today. Discussed with the resident and agree with the residents finding and plan as documented in the resident's note. Changes highlighted in blue font. Patient Condition at Discharge: Fair Plan - Discharge Summary Discharge Rx Participant: Yes New Discharge Prescriptions: New Aspirin 81 mg PO DAILY #60 tab Clopidogrel [Plavix] 75 mg PO DAILY #60 tablet Insulin Glargine,Hum.rec.anlog [Lantus Solostar Pen] 20 units SQ HS #7 each Continue Atorvastatin [Lipitor] 80 mg PO HS #30 tab Clopidogrel [Plavix] 75 mg PO DAILY atenoloL [Tenormin] 50 mg PO DAILY Cholecalciferol [Vitamin D3 (25 Mcg = 1000 Iu)] 25 mcg PO DAILY Vit C/E/Zn/Coppr/Lutein/Zeaxan [Preservision Areds 2 Softgel] 1 cap PO BID metroNIDAZOLE 0.75% CREAM [Metrocream 0.75%] 1 applic TOPICAL DAILY LORazepam [Ativan] 1 mg PO BID PRN PRN Reason: Anxiety Albuterol Sulfate [Albuterol Sulfate Hfa] 1 puff INHALATION RT-Q4H PRN PRN Reason: Shortness Of Breath Mupirocin 2% Oint [Bactroban 2% Oint] 1 applic TOPICAL HS Finasteride [Proscar] 5 mg PO DAILY Empagliflozin [Jardiance] 25 mg PO DAILY Doxazosin Mesylate 8 mg PO DAILY Discharge Medication List Atorvastatin [Lipitor] 80 mg PO HS #30 tab 10/05/16 [Rx] Clopidogrel [Plavix] 75 mg PO DAILY 12/31/19 [History] atenoloL [Tenormin] 50 mg PO DAILY 12/31/19 [History] Cholecalciferol [Vitamin D3 (25 Mcg = 1000 Iu)] 25 mcg PO DAILY 01/01/24 [History] Vit C/E/Zn/Coppr/Lutein/Zeaxan [Preservision Areds 2 Softgel] 1 cap PO BID 01/01/24 [History] Albuterol Sulfate [Albuterol Sulfate Hfa] 1 puff INHALATION RT-Q4H PRN 08/02/24 [History] Doxazosin Mesylate 8 mg PO DAILY 08/02/24 [History] Empagliflozin [Jardiance] 25 mg PO DAILY 08/02/24 [History] Finasteride [Proscar] 5 mg PO DAILY 08/02/24 [History] LORazepam [Ativan] 1 mg PO BID PRN 08/02/24 [History] Mupirocin 2% Oint [Bactroban 2% Oint] 1 applic TOPICAL HS 08/02/24 [History] metroNIDAZOLE 0.75% CREAM [Metrocream 0.75%] 1 applic TOPICAL DAILY 08/02/24 [History] Aspirin 81 mg PO DAILY #60 tab 08/05/24 [Rx] Clopidogrel [Plavix] 75 mg PO DAILY #60 tablet 08/05/24 [Rx] Insulin Glargine,Hum.rec.anlog [Lantus Solostar Pen] 20 units SQ HS #7 each 08/05/24 [Rx] Follow up Appointment(s)/Referral(s): Margie Sauceda MD [REFERRING] - 1 Week (Called Dr. Sauceda's office, nurse receptionist stated they would get his records and give him a call back directly to schedule appointment ) Sae Fabian DO [Primary Care Provider] - 1-2 days Patient Instructions/Handouts: Ischemic Stroke (GEN), Type 2 Diabetes in the O lder Adult (DC) Activity/Diet/Wound Care/Special Instructions: Please see your PCP and neurology within 1 week of discharge. May need additional echocardiogram completed at a follow up appointment with cardiology in the future. Discharge Disposition: HOME SELF-CARE
[2024-08-05 11:00] LABS: Glucose,Whole Blood 201 mg/dL (70-110)
--- NOTE | 2024-08-05 14:22 | P.PN ---
Progress Note - Text Progress Note Date: 08/05/24 * Patient has been discharged. Reviewed workup, and discussed with primary physician Dr. Lucille Hinton in detail. * MRI of the brain without contrast, revealed acute/subacute CVA involving the right posterior frontal lobe. Questionable area of infarct in the posterior left frontal lobe. Additional scattered remote injuries and nonspecific [place] changes, likely secondary to small vessel ischemic disease. I personally reviewed MRI, agree with the findings. * MRA of the head without contrast revealed no evidence of aneurysm or significant stenosis. * 2-D echo with bubble study revealed LV EF estimated at 55-60%. Moderately increased septal wall thickness. No obvious regional wall motion abnormalities. Normal right atrial size. Mildly increased left atrial diameter. * Carotid Doppler, revealed limited examination without evidence of hemodynamically significant stenosis. Antegrade flow right vertebral artery, left vertebral artery not visualized. * Fasting a.m. lipid panel cholesterol 96, LDL 14, HDL 26 and triglycerides 278. Continue Lipitor 80 mg daily (home dose). * Hemoglobin A1c 9.9. Recommend optimize control of diabetes to target A1c < 7.0. * Optimize control of blood pressure normotensive levels. * Patient has multiple vascular risk factors as mentioned above. Recommend aggressive control of all vascular risk factors. * Continue dual antiplatelet therapy with Plavix 75 mg daily and adding aspirin 81 mg daily. (At home patient only on Plavix 75 mg) * Event monitoring for 30 days, rule out paroxysmal atrial fibrillation. * Patient to follow-up with neurologist outpatient. * Patient was deemed stable for discharge with above recommendations.
== END 2024-08-05 14:04 | disposition home or self-care (01) | DRG 66 ==
LOC: EC 10:39 → 3SCARD 13:13 → OBSVTOIN 13:14 → 3SCARD 14:45 → 2SICU 08-03 11:34
PROVIDERS: ADMIT Student in an Organized Health Care Education/Training Program; ATTEND Student in an Organized Health Care Education/Training Program
DX: I63.531 Cerebral infarction due to unspecified occlusion or stenosis of right posterior cerebral artery (principal); E11.22 Type 2 diabetes mellitus with diabetic chronic kidney disease; N18.32 Chronic kidney disease, stage 3b; I69.344 Monoplegia of lower limb following cerebral infarction affecting left non-dominant side; I12.9 Hypertensive chronic kidney disease with stage 1 through stage 4 chronic kidney disease, or unspecified chronic kidney disease; E11.65 Type 2 diabetes mellitus with hyperglycemia; I63.532 Cerebral infarction due to unspecified occlusion or stenosis of left posterior cerebral artery; R29.700 NIHSS score 0; E78.5 Hyperlipidemia, unspecified; N40.0 Benign prostatic hyperplasia without lower urinary tract symptoms; F17.210 Nicotine dependence, cigarettes, uncomplicated; R26.2 Difficulty in walking, not elsewhere classified; I25.10 Atherosclerotic heart disease of native coronary artery without angina pectoris; G25.0 Essential tremor; Z79.02 Long term (current) use of antithrombotics/antiplatelets; Z79.84 Long term (current) use of oral hypoglycemic drugs; I25.2 Old myocardial infarction; Z95.5 Presence of coronary angioplasty implant and graft; Z79.899 Other long term (current) drug therapy
CPT/HCPCS: 36415; 70450; 70544; 70551; 71046; 72128; 72131; 73502; 80048; 80053; 80061; 82550; 83036; 84443; 84484; 85025; 85610; 85730; 93005; 93270; 93306; 93880; 99285